=== PATIENT | male | born 1955 | race Caucasian/White ===

== ENCOUNTER 2022-05-01 12:53 | Oncology outpatient (recurring) (ONCR) | payer OTHER, SELFPAY ==
[2022-05-01 14:39] LABS: Basophils % 0.4 %; Eosinophils # 0.1 10^3/uL (0.0-0.8); Eosinophils % 1.1 %; Hematocrit 45.6 % (42.0-52.0); Hemoglobin 14.6 g/dL (11.7-16.6); Lymphocytes # 1.9 10^3/uL (0.8-4.8); Lymphocytes % 26.1 %; Mean Corpuscular Volume 93.8 fl (80-94); Mean Platelet Volume 10.8 fL (7.4-10.4); Monocytes # 0.5 10^3/uL (0.2-0.9); Monocytes % 7.3 %; Nucleated Red Blood Cells % 0 %; Platelet Count 156 10^3/cmm (130-400); Red Blood Count 4.86 10^6/uL (4.1-5.3); Red Cell Distribution Width 13.6 % (12.1-15.1); White Blood Count 7.2 10^3/uL (4.0-10.0)
[2022-05-01 15:02] LABS: Alanine Aminotransferase 13 U/L (0-41); Albumin Level 4.6 g/dL (3.5-5.2); Alkaline Phosphatase 78 U/L (40-130); Anion Gap 12.9 (5-19); Aspartate Amino Transferase 17 U/L (0-40); Blood Urea Nitrogen 13 mg/dL (8-23); Calcium 9.8 mg/dL (8.5-10.5); Carbon Dioxide 29 mmol/L (22-29); Chloride 105 mmol/L (98-107); Ferritin 31 ng/mL (30-400); Globulin 2.5 g/dL (1.3-4.6); Glomerular Filtration Rate 135.6 mL/min (90-130); Glucose 102 mg/dL (65-115); Osmolality Calculated 294 mOsm/kg (285-295); Potassium 4.9 mmol/L (3.5-5.1); Sodium 142 mmol/L (136-145); Total Bilirubin 0.4 mg/dL (0.15-1.2); Total Protein 7.1 g/dL (6.6-8.7)
== END 2022-05-25 23:59 | disposition home or self-care (01) ==
PROVIDERS: Visit Provider Internal Medicine Hematology & Oncology
DX: C15.5 Malignant neoplasm of lower third of esophagus (principal); C77.8 Secondary and unspecified malignant neoplasm of lymph nodes of multiple regions; E83.110 Hereditary hemochromatosis; Z90.09 Acquired absence of other part of head and neck; Z92.21 Personal history of antineoplastic chemotherapy; Z92.3 Personal history of irradiation; F17.210 Nicotine dependence, cigarettes, uncomplicated
CPT/HCPCS: 36415; 80053; 82728; 85025; 99204

== ENCOUNTER 2022-05-22 13:20 | Outpatient (CLI) | payer OTHER, SELFPAY ==
[2022-05-22] MEDS: iohexol 350 mg/mL 500 mL Btl (per mL) IV (13:52)
--- NOTE | 2022-05-22 14:30 | CT_ITS ---
WS: [id number] CT CHEST WITH INTRAVENOUS CONTRAST HISTORY: History of esophageal cancer. TECHNIQUE: Contiguous 5 mm axial imaging performed on the thorax. Coronal and sagittal reformats are submitted. All CT scans at [facility] use at least one of these dose optimization techniques: automated exposure control; mA and/or kV adjustment per patient size (includes targeted exams where dose is matched to clinical indication); or iterative reconstruction. CONTRAST: Omnipaque 350; 100 mL IV. DLP: 266.21 mGy.cm COMPARISON: None available. Lungs and central airway: 5.6 mm spiculated lesion LEFT upper lobe may be an area of scarring. Early metastatic site not excluded. Otherwise lungs are clear. Pleura: Normal. No pleural effusion. Heart and pericardium: Normal size heart with no pericardial effusion. Mediastinum and rahul: No mediastinum or hilar adenopathy. Vessels: Mild atherosclerosis aorta. No aneurysm. Normal size pulmonary artery. Coronary artery calci fications. Chest wall and lower neck: No soft tissue masses. Upper abdomen: Patient is status post esophageal pull-through. The postsurgical changes appear approp riate. No mass or obstruction is identified. Gallbladder is contracted. Visualized liver is negative. Pancreas is atrophic. Mild fullness of the pancreatic duct. Osseous structures: Increase in thoracic kyphosis. Moderate degenerative disc disease with vacuum dis c phenomenon at several levels. CT/CT chest w con* [id number] IMPRESSION: 1. Status post esophageal pull-through. The surgical changes appear appropriat e. 2. 5.6 mm minimally spiculated nodule LEFT upper lobe. May be a scar but early metastatic site is not excluded. Correlation with prior imaging would be most helpful. There are no prior studies available at [facility]. Otherwise [address] follow-up. 3. Atrophied pancreas with mildly prominent pancreatic duct. This may be a chr onic finding. Comparison with prior outside examinations would be most helpful. Otherwise, follow-up CT evaluation in 3 months the pancreas is recommended.
== END 2022-05-22 13:21 | disposition home or self-care (01) ==
PROVIDERS: Visit Provider Internal Medicine Hematology & Oncology
DX: C15.9 Malignant neoplasm of esophagus, unspecified (principal); R91.1 Solitary pulmonary nodule
CPT/HCPCS: 71260; Q9967

== ENCOUNTER 2022-06-01 09:33 | Oncology outpatient (recurring) (ONCR) | payer OTHER, SELFPAY ==
[2022-06-01 10:21] LABS: Basophils # 0.1 10^3/uL (0.0-0.1); Basophils % 0.7 %; Eosinophils # 0.1 10^3/uL (0.0-0.8); Eosinophils % 1.8 %; Hemoglobin 15.2 g/dL (11.7-16.6); Lymphocytes # 1.6 10^3/uL (0.8-4.8); Lymphocytes % 23.4 %; Mean Corpuscular HGB Conc 32.3 g/dL (30.0-36.0); Mean Corpuscular Hemoglobin 30.2 pg (28.0-34.0); Mean Corpuscular Volume 93.3 fl (80-94); Mean Platelet Volume 10.3 fL (7.4-10.4); Monocytes # 0.6 10^3/uL (0.2-0.9); Monocytes % 9.2 %; Neutrophils # 4.34 10^3/uL (1.8-7.7); Neutrophils % 64.8 %; Nucleated Red Blood Cells % 0 %; Platelet Count 176 10^3/cmm (130-400); Red Blood Count 5.04 10^6/uL (4.1-5.3); Red Cell Distribution Width 14.8 % (12.1-15.1); White Blood Count 6.7 10^3/uL (4.0-10.0)
[2022-06-01 10:35] LABS: Alanine Aminotransferase 11 U/L (0-41); Albumin Level 4.6 g/dL (3.5-5.2); Alkaline Phosphatase 76 U/L (40-130); Anion Gap 13.3 (5-19); Aspartate Amino Transferase 14 U/L (0-40); Blood Urea Nitrogen 13 mg/dL (8-23); Calcium 9.6 mg/dL (8.5-10.5); Carbon Dioxide 27 mmol/L (22-29); Chloride 107 mmol/L (98-107); Globulin 2.6 g/dL (1.3-4.6); Glomerular Filtration Rate 135.6 mL/min (90-130); Glucose 89 mg/dL (65-115); Osmolality Calculated 296 mOsm/kg (285-295); Potassium 4.3 mmol/L (3.5-5.1); Sodium 143 mmol/L (136-145); Total Bilirubin 0.4 mg/dL (0.15-1.2); Total Protein 7.2 g/dL (6.6-8.7)
== END 2022-06-24 23:59 | disposition home or self-care (01) ==
PROVIDERS: Visit Provider Internal Medicine Hematology & Oncology
DX: C15.5 Malignant neoplasm of lower third of esophagus (principal); Z90.09 Acquired absence of other part of head and neck; C77.8 Secondary and unspecified malignant neoplasm of lymph nodes of multiple regions; E83.110 Hereditary hemochromatosis; F17.210 Nicotine dependence, cigarettes, uncomplicated; Z92.21 Personal history of antineoplastic chemotherapy; Z92.3 Personal history of irradiation; R91.1 Solitary pulmonary nodule
CPT/HCPCS: 36415; 80053; 85025; 99214

== ENCOUNTER 2022-08-29 08:05 | Outpatient (CLI) | payer OTHER, SELFPAY ==
--- NOTE | 2022-08-29 08:20 | USR_ITS ---
PROCEDURE INFORMATION: Exam: US Duplex Bilateral Lower Extremity Arteries Exam date and time: 08/29/2022 8:32 AM Age: 66 years old Clinical indication: Condition or disease; Other: Arterial artery disease; Prior surgery; Surgery date: 6+ months; Surgery type: Patient states he has a stent in his right lower extrimity; Additional info: Arterial artery dz, PT having CT too TECHNIQUE: Imaging protocol: Real-time ultrasound scan of the arteries of the bilateral lower extremities with 2-D cruz scale, color Doppler flow and spectral waveform analysis. Images documented and saved. Total images: 3 COMPARISON: No relevant prior studies available. FINDINGS: Right external iliac artery: Biphasic waveform demonstrated right external iliac mid and distally. Right common femoral artery: No occlusion or significant stenosis. Normal waveform. Right superficial femoral artery: No flow within right SFA proximal to distal. No flow within the right proximal to distal SFA. Right popliteal artery: Reconstitution of flow with monophasic waveform noted within the right popliteal artery. Right calf/foot arteries: Right ankle brachial index of 0.71. This is claudication zone. Monophasic waveforms below the knee but only posterior tibial artery and dorsalis pedis artery demonstrated. Left external iliac artery: Biphasic waveform in the left external iliac mid and distal. Biphasic waveform in the left external iliac mid and distal. Left common femoral artery: No occlusion or significant stenosis. Normal waveform. Left superficial femoral artery: No flow in left SFA mid to distal. No flow seen in left SFA mid to distal. Left popliteal artery: Reconstitution of flow in left popliteal artery with monophasic waveform. Left calf/foot arteries: Left ankle brachial index of 0.71. This is claudication zone.Monophasic waveforms below the knee but only posterior tibial artery and dorsalis pedis artery demonstrated. Other findings: Moderate atherosclerotic burden. Biphasic waveforms are noted in the common femoral. Flow demonstrated in the right deep femoral artery. Flow demonstrated in left deep femoral artery. US/[place] [id number] IMPRESSION: 1. No flow within the right proximal to distal SFA. 2. Reconstitution of flow with monophasic waveform noted within the right popliteal artery and below the knee. 3. No flow seen in left SFA mid to distal. 4. Reconstitution of flow in left popliteal artery with monophasic waveform within the left popliteal artery and below the knee. 5. Bilateral ankle brachial index of 0.71. This is claudication zone.
[2022-08-29 09:24] LABS: Basophils # 0.1 10^3/uL (0.0-0.1); Basophils % 1.1 %; Eosinophils # 0.1 10^3/uL (0.0-0.8); Eosinophils % 2.2 %; Hematocrit 45.5 % (42.0-52.0); Hemoglobin 14.9 g/dL (11.7-16.6); Lymphocytes # 1.5 10^3/uL (0.8-4.8); Lymphocytes % 23.4 %; Mean Corpuscular HGB Conc 32.7 g/dL (30.0-36.0); Mean Corpuscular Volume 94.6 fl (80-94); Mean Platelet Volume 10.7 fL (7.4-10.4); Monocytes # 0.6 10^3/uL (0.2-0.9); Monocytes % 9.1 %; Neutrophils # 4.14 10^3/uL (1.8-7.7); Nucleated Red Blood Cells % 0 %; Platelet Count 171 10^3/cmm (130-400); Red Blood Count 4.81 10^6/uL (4.1-5.3); Red Cell Distribution Width 14.9 % (12.1-15.1); White Blood Count 6.5 10^3/uL (4.0-10.0)
--- NOTE | 2022-08-29 09:30 | CT_ITS ---
WS: [id number] CT CHEST AND ABDOMEN TECHNIQUE: Contrast-enhanced CT of the chest and abdomen with coronal and sagittal reformatted images . CLINICAL INFORMATION: Follow up COMPARISON: CT chest May 22, 2022 DLP: 493.[address] scans at [facility] use at least one of these dose optimization techniques: automated e xposure control; mA and/or kV adjustment per patient size (includes targeted exams where dose is matc hed to clinical indication); or iterative reconstruction. CT CHEST ABDOMEN: Previously described small area of spiculation in the LEFT upper lobe is unchanged. This measures sarah roximately 5 to 6 mm. New 8 mm nodule LEFT lower lobe. Recommend 3 month follow-up. No other suspicious pulmonary parenchymal opacities. No acute pulmonary infiltrates. Slight bibasilar atelectasis. Mild chronic emphysematous changes. Prior postoperative changes of esophagectomy with g astric pull-through. Normal caliber thoracic aorta. Mild aortic calcification. No mediastinal or rahul r lymphadenopathy. Coronary calcification. Normal thyroid gland. No axillary lymphadenopathy. Hepatomegaly with diffuse fatty infiltration liver. Adrenal glands are normal. Atrophic pancreas with minimal prominence of the pancreatic duct is unchanged. No visualized pancreatic lesions. Adrenal gl ands are normal. Normal renal parenchymal enhancement. A few tiny renal cysts. Normal spleen. Normal caliber upper abdominal aorta. Celiac and SMA are patent. Moderate thoracic kyphosis. Endplate Schmor l's nodes in the mid and lower thoracic spine. CT/CT chest abdomen w con* IMPRESSION: 1. Prior postoperative changes of esophagectomy and gastric pull-through. 2. Stable previously described LEFT upper lobe spiculation measuring 5 to 6 mm . 3. New 8 mm nodule LEFT lower lobe. Metastatic disease not excluded. Recommend 3 month follow-up. 4. No other new pulmonary parenchymal abnormalities. 5. Stable previously described atrophic pancreas. No visualized pancreatic mas s. 6. No mediastinal or hilar lymphadenopathy. 7. No other suspicious findings.
[2022-08-29 09:42] LABS: Alanine Aminotransferase 13 U/L (0-41); Albumin Level 4.4 g/dL (3.5-5.2); Alkaline Phosphatase 70 U/L (40-130); Aspartate Amino Transferase 17 U/L (0-40); Blood Urea Nitrogen 13 mg/dL (8-23); Calcium 9.1 mg/dL (8.5-10.5); Carbon Dioxide 27 mmol/L (22-29); Chloride 104 mmol/L (98-107); Ferritin 32 ng/mL (30-400); Globulin 2.5 g/dL (1.3-4.6); Glomerular Filtration Rate 113.5 mL/min (90-130); Glucose 90 mg/dL (65-115); Osmolality Calculated 290 mOsm/kg (285-295); Sodium 140 mmol/L (136-145); Total Bilirubin 0.6 mg/dL (0.15-1.2); Total Protein 6.9 g/dL (6.6-8.7)
[2022-08-29] MEDS: iohexol 350 mg/mL 500 mL Btl (per mL) IV (09:57)
[2022-08-29 10:18] LABS: Anion Gap 12.8 (5-19); Potassium 3.8 mmol/L (3.5-5.1)
== END 2022-08-29 08:06 | disposition home or self-care (01) ==
LOC: RAD 08:08
PROVIDERS: PCP Nurse Practitioner; Visit Provider Internal Medicine Hematology & Oncology
DX: I70.213 Atherosclerosis of native arteries of extremities with intermittent claudication, bilateral legs (principal); C15.9 Malignant neoplasm of esophagus, unspecified; E83.119 Hemochromatosis, unspecified; Z90.49 Acquired absence of other specified parts of digestive tract; R91.1 Solitary pulmonary nodule; K86.89 Other specified diseases of pancreas; Z95.828 Presence of other vascular implants and grafts
CPT/HCPCS: 71260; 74160; 80053; 82728; 85025; 93925; Q9967

== ENCOUNTER 2022-09-03 12:46 | Oncology outpatient (recurring) (ONCR) | payer OTHER, SELFPAY ==
[2022-09-03 12:51] VITALS: BP 128/78; PULSE 76; RESP 18; TEMP 36.9; O2SAT 97
[2022-09-03 12:54] LABS: Basophils % 0.6 %; Eosinophils # 0.1 10^3/uL (0.0-0.8); Eosinophils % 1.2 %; Hematocrit 45.3 % (42.0-52.0); Hemoglobin 14.8 g/dL (11.7-16.6); Lymphocytes # 1.5 10^3/uL (0.8-4.8); Mean Corpuscular HGB Conc 32.7 g/dL (30.0-36.0); Mean Corpuscular Hemoglobin 30.1 pg (28.0-34.0); Mean Corpuscular Volume 92.1 fl (80-94); Mean Platelet Volume 10.1 fL (7.4-10.4); Monocytes # 0.6 10^3/uL (0.2-0.9); Monocytes % 8.5 %; Neutrophils # 4.62 10^3/uL (1.8-7.7); Neutrophils % 67.4 %; Nucleated Red Blood Cells % 0 %; Platelet Count 164 10^3/cmm (130-400); Red Blood Count 4.92 10^6/uL (4.1-5.3); Red Cell Distribution Width 14.9 % (12.1-15.1); White Blood Count 6.9 10^3/uL (4.0-10.0)
[2022-09-03 13:11] LABS: Alanine Aminotransferase 16 U/L (0-41); Albumin Level 4.6 g/dL (3.5-5.2); Alkaline Phosphatase 69 U/L (40-130); Anion Gap 12.6 (5-19); Aspartate Amino Transferase 18 U/L (0-40); Blood Urea Nitrogen 11 mg/dL (8-23); Carbon Dioxide 26 mmol/L (22-29); Chloride 100 mmol/L (98-107); Ferritin 34 ng/mL (30-400); Globulin 2.5 g/dL (1.3-4.6); Glomerular Filtration Rate 135.6 mL/min (90-130); Glucose 99 mg/dL (65-115); Osmolality Calculated 279 mOsm/kg (285-295); Potassium 3.6 mmol/L (3.5-5.1); Sodium 135 mmol/L (136-145); Total Bilirubin 0.6 mg/dL (0.15-1.2); Total Protein 7.1 g/dL (6.6-8.7)
== END 2022-09-24 23:59 | disposition home or self-care (01) ==
PROVIDERS: PCP Nurse Practitioner; Visit Provider Internal Medicine Hematology & Oncology
DX: C15.5 Malignant neoplasm of lower third of esophagus (principal); Z90.09 Acquired absence of other part of head and neck; C77.8 Secondary and unspecified malignant neoplasm of lymph nodes of multiple regions; R91.1 Solitary pulmonary nodule; E83.110 Hereditary hemochromatosis; F17.210 Nicotine dependence, cigarettes, uncomplicated; Z92.21 Personal history of antineoplastic chemotherapy; Z92.3 Personal history of irradiation
CPT/HCPCS: 36415; 80053; 82728; 85025; 99214

== ENCOUNTER 2022-10-31 09:46 | Outpatient (CLI) | payer OTHER, SELFPAY ==
--- NOTE | 2022-10-31 10:03 | USCV_ITS ---
John Aggarwal Age: 66 Gender: M : 1955 Exam Date: 10/31/2022 10:20 Ordering Phys: Celena Che MD Technologist: Curt Robledo [place] [facility] [place] pad Risk Factors: Previous Vascular Surgery: hx of rt leg stent RIGHT LEFT BP: 120.0 / 75.00 BP: 120.0/ 75.00 0 0 Waveform Velocity (cm/s) Velocity (cm/s) Waveform Biphasic 65.6 Iliac Prox 87.4 Biphasic Monophasic 87.3 Iliac Mid 78.6 Biphasic Biphasic 78.3 Iliac Distal 69.7 Biphasic Biphasic 87.3 FARM INSTRUCTOR 92.3 Biphasic SFA Prox 45.3 Biphasic Biphasic 23.5 POP 22.1 Monophasic Monophasic 18.0 EXECUTIVE STAFF ASSISTANT 20.1 Monophasic Monophasic 11.6 DPA 15.7 Monophasic 0.7 HUDSON 0.7 FINDINGS Resting HUDSON of 0.7 on the right and 0.7 on the left No Doppler flow signals are noted in the superficial femoral artery on the right side. Monophasic low amplitude waveforms in the popliteal and infrapopliteal vessels on the right side. No Doppler flow signals in the mid and distal superficial femoral artery on the left side. Monophasic low amplitude waveforms in the infrapopliteal vessels on the left side CONCLUSIONS 1. 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 The mid and distal superficial femoral artery on the left-side also was occluded 2. Sluggish flow in the popliteal and infrapopliteal vessels bilaterally 3. Abnormal resting HUDSON of 0.7 bilaterally Compared to the study from 08/29/2022, there may not be a significant change Dr Didi Barrios MD [facility] (Electronically Signed) Final Date: 31 October 2022 15:53 S
== END 2022-10-31 09:47 | disposition home or self-care (01) ==
PROVIDERS: PCP Nurse Practitioner; Visit Provider Family Medicine
DX: I73.9 Peripheral vascular disease, unspecified (principal); I77.9 Disorder of arteries and arterioles, unspecified
CPT/HCPCS: 93925

== ENCOUNTER 2022-11-26 08:40 | Outpatient (CLI) | payer OTHER, SELFPAY ==
--- NOTE | 2022-11-26 09:00 | CT_ITS ---
WS: [id number] CT chest w con* [id number] HISTORY: follow up, history of esophageal cancer TECHNIQUE: Axial imaging performed through the thorax. Coronal and sagittal reformats are submitted. [facility] use at least one of these dose optimization techniques: automated exposure control; mA and/or kV adjustment per patient size (includes targeted exams where dose is mat ched to clinical indication); or iterative reconstruction. CONTRAST: Omnipaque 350; 100 mL IV. DLP: 345.23 mGy.cm COMPARISON: 08/29/2022 and 05/22/2022 Lungs and central airway: Chronic emphysema. 5 mm slightly spiculated nodule in the LEFT upper lobe i s unchanged. Recently described nodule in the LEFT lower lobe has significantly increased in size sin ce 08/29/2022. 8 mm nodule is increased in size and now measures 12 mm at its maximum. This nodule is s lightly ovoid in shape. No new or additional nodules. Pleura: Normal. No pleural effusion. Heart and pericardium: Normal size heart with no pericardial effusion. Mediastinum and rahul: There are a few small lymph nodes in the LEFT paratracheal and aortopulmonary w indow. These are very similar to the prior examinations. No hilar adenopathy. Patient is status post esophagectomy with gastric pull-through. No recurrent mass at the surgical anastomosis. Vessels: Mild atherosclerosis aorta. No aneurysm. Normal pulmonary artery. Chest wall and lower neck: Subcentimeter RIGHT thyroid nodule. Upper abdomen: Variable enhancement in the spleen is likely related to the early enhancement. Negativ e adrenal glands. There is variable enhancement also within the liver. There are a few scattered area s of increased peripheral enhancement. These may be small hemangiomas. Osseous structures: No destructive process. IMPRESSION: 1. Status post esophagectomy with gastric pull-through, stable. 2. Enlarging LEFT lower lobe noncalcified pulmonary nodule. Nodule has increased from 8 to 12 mm at i ts maximum. Metastatic site is not excluded. Recommend follow-up PET/CT imaging. 3. Stable spiculated 5 mm nodule at the LEFT apex. 4. Variable enhancement in the liver and spleen are probably related to the arterial imaging. These c an also be reevaluated on PET/CT imaging.
[2022-11-26 09:30] LABS: Blood Urea Nitrogen 10 mg/dL (8-23); Glomerular Filtration Rate 97.3 mL/min (90-130)
[2022-11-26] MEDS: iohexol 350 mg/mL 500 mL Btl (per mL) IV (09:36)
== END 2022-11-26 08:41 | disposition home or self-care (01) ==
PROVIDERS: Internal Medicine Medical Oncology; PCP Nurse Practitioner; Visit Provider Internal Medicine Hematology & Oncology
DX: C15.9 Malignant neoplasm of esophagus, unspecified (principal); R91.1 Solitary pulmonary nodule
CPT/HCPCS: 71260; 82565; 84520; Q9967

== ENCOUNTER 2022-12-04 07:52 | Oncology outpatient (recurring) (ONCR) | payer OTHER, SELFPAY ==
[2022-12-04 08:01] VITALS: BP 153/74; PULSE 75; RESP 16; TEMP 36.8; O2SAT 99
[2022-12-04 08:21] LABS: Basophils # 0.1 10^3/uL (0.0-0.1); Eosinophils # 0.1 10^3/uL (0.0-0.8); Eosinophils % 1.9 %; Hematocrit 45.9 % (37-53); Lymphocytes # 1.6 10^3/uL (0.8-4.8); Lymphocytes % 23.2 %; Mean Corpuscular HGB Conc 33.1 g/dL (30-55); Mean Corpuscular Hemoglobin 31.1 pg (27-33); Mean Corpuscular Volume 94.1 fl (82-101); Mean Platelet Volume 10.7 fL (7.4-10.4); Monocytes # 0.7 10^3/uL (0.2-0.9); Monocytes % 10.1 %; Neutrophils % 63.5 %; Nucleated Red Blood Cells % 0 %; Platelet Count 179 10^3/cmm (157-399); Red Blood Count 4.88 10^6/uL (3.85-5.65); Red Cell Distribution Width 14.7 % (12.1-15.1); White Blood Count 6.93 10^3/uL (3.29-11.43)
[2022-12-04 08:37] LABS: Alanine Aminotransferase 18 U/L (0-41); Albumin Level 4.4 g/dL (3.5-5.2); Alkaline Phosphatase 78 U/L (40-130); Aspartate Amino Transferase 22 U/L (0-40); Blood Urea Nitrogen 12 mg/dL (8-23); Calcium 9.2 mg/dL (8.5-10.5); Carbon Dioxide 26 mmol/L (22-29); Chloride 105 mmol/L (98-107); Globulin 2.6 g/dL (1.3-4.6); Glucose 130 mg/dL (65-115); Osmolality Calculated 294 mOsm/kg (285-295); Sodium 141 mmol/L (136-145); Total Bilirubin 0.4 mg/dL (0.15-1.2)
[2022-12-04 10:19] LABS: Ferritin 43 ng/mL (30-400); Iron 114 ug/dL (59-158); Percent Saturation 47.6 % (20-50); Total Iron Binding Capacity 239 mcg/dl; Unsaturated Iron Binding 125 ug/dL (112-347)
== END 2022-12-25 23:59 | disposition home or self-care (01) ==
PROVIDERS: Internal Medicine Medical Oncology; PCP Nurse Practitioner; Visit Provider Internal Medicine Hematology & Oncology
DX: C15.5 Malignant neoplasm of lower third of esophagus (principal); R91.1 Solitary pulmonary nodule; E83.119 Hemochromatosis, unspecified; F17.210 Nicotine dependence, cigarettes, uncomplicated
CPT/HCPCS: 36415; 80053; 82728; 83540; 83550; 85025; 99214

== ENCOUNTER 2022-12-25 10:30 | Outpatient (CLI) | payer OTHER, SELFPAY ==
--- NOTE | 2022-12-25 10:30 | PETR_ITS ---
PROCEDURE INFORMATION: Exam: PET/CT Skull Base to Mid-thigh Exam date and time: 12/25/2022 11:30 AM Age: 67 years old Clinical indication: Condition or disease; Primary cancer: Esophageal; Follow-up oncological assessment; Condition/disease: Enlarging left lower lobe noncalcified pulmonary nodule. Nodule has increased from 8 to 12 mm at. Its maximum. Metastatic site is not excluded. Recommend follow-up pet/ct imaging. ; Additional info: Esophageal cancer follow up, needs a pet. Nodules getting larger. LABS AND CLINICAL REPORTS: Glucose: 91 mg/dl Treatment strategy for malignancy (PET staging): Restaging (PS) TECHNIQUE: Imaging protocol: Following at least four-hour fasting and following the injection of radiopharmaceutical, low dose CT images were obtained. Then, PET images were obtained. Attenuation corrected images were constructed using the CT scan. Fused images of PET and CT were reviewed. The standardized uptake values (SUV) reported below are maximum values within a region of interest, expressed in gm/ml. Exam includes orbital meatal line to mid-thigh. Radiopharmaceutical: 11.91 mCi F-18 FDG (Fluorodeoxyglucose), IV. Time of imaging post radiopharmaceutical administration: 1 hour Injection site: Information is currently not provided COMPARISON: CT chest w con 11/26/2022, CT chest abdomen 08/29/2022 FINDINGS: Brain: Visualized brain has normal physiologic uptake. Paranasal sinuses: No abnormal uptake. Small retention cyst anteriorly in the left maxillary sinus. Pharynx: No abnormal uptake. Larynx: No abnormal uptake. Lungs, pleura and trachea: 1.4 cm left lower lobe nodule measures 4.7 SUV suggestive of malignancy. No pleural effusion. Heart: Normal physiologic uptake. There is no cardiomegaly. Coronary artery calcification is present. There is no pericardial effusion. Mediastinal space: No abnormal uptake. Status post esophagectomy with gastric pull-up surgery. Stable sequela of exposure to granulomatous disease with small calcified subcarinal and left hilar lymph nodes. Liver: No abnormal uptake. Tiny calcified granulomas. Gallbladder and bile ducts: No abnormal uptake. No calcified gallstones. Pancreas: No abnormal uptake. Spleen: No abnormal uptake. No splenomegaly. Adrenal glands: No abnormal uptake. No nodules. Kidneys and ureters: Normal physiologic uptake. No hydronephrosis. Stomach and bowel: No abnormal uptake. Normal appendix is visualized. Intraperitoneal and retroperitoneal spaces: No abnormal uptake. No ascites. Urinary bladder: Normal physiologic uptake. Reproductive: No abnormal uptake. The prostate is enlarged. Vasculature: No abnormal uptake. No aortic aneurysm. Lymph nodes: No abnormal uptake. No lymphadenopathy in the head, neck, chest, abdomen, pelvis, and extremities. Bones/joints: No abnormal uptake in the visualized axial and appendicular skeleton. Status post C4-C7 fusion with anterior internal fixation. Soft tissues: No abnormal uptake in the visualized head, neck, chest, abdomen, pelvis, and extremities. [id number] IMPRESSION: 1.4 cm left lower lobe lung nodule with uptake of 4.7 SUV suggestive of malignancy. No additional FDG avid findings.
== END 2022-12-25 10:31 | disposition home or self-care (01) ==
LOC: RAD 12-26 08:30
PROVIDERS: PCP Nurse Practitioner; Visit Provider Internal Medicine Medical Oncology
DX: C15.9 Malignant neoplasm of esophagus, unspecified (principal); R91.1 Solitary pulmonary nodule
CPT/HCPCS: 78815; 99203; A9552

== ENCOUNTER → 2022-12-25 14:13 | Outpatient (BNVA) | payer OTHER, SELFPAY | PROVIDERS: PCP Nurse Practitioner; Referring Provider Family Medicine; Visit Provider Thoracic Surgery (Cardiothoracic Vascular Surgery) | DX: I73.9 Peripheral vascular disease, unspecified (principal); Z98.890 Other specified postprocedural states | CPT/HCPCS: 99203 ==

== ENCOUNTER 2022-12-31 12:43 | Oncology outpatient (recurring) (ONCR) | payer OTHER, SELFPAY | END 2023-01-24 23:59 | disposition home or self-care (01) | LOC: ONCMED 12:44 | PROVIDERS: PCP Nurse Practitioner; Visit Provider Internal Medicine Hematology & Oncology | DX: C15.5 Malignant neoplasm of lower third of esophagus (principal); R91.1 Solitary pulmonary nodule; E83.119 Hemochromatosis, unspecified; F17.210 Nicotine dependence, cigarettes, uncomplicated; Z79.899 Other long term (current) drug therapy | CPT/HCPCS: 99215 ==

== ENCOUNTER → 2023-01-11 09:19 | Outpatient (BNVA) | payer OTHER, SELFPAY | PROVIDERS: PCP Nurse Practitioner; Visit Provider Internal Medicine Pulmonary Disease | DX: R91.1 Solitary pulmonary nodule (principal); J43.9 Emphysema, unspecified; Z85.01 Personal history of malignant neoplasm of esophagus; Z90.49 Acquired absence of other specified parts of digestive tract | CPT/HCPCS: 99204 ==

== ENCOUNTER 2023-01-28 05:46 | Day surgery (SDC) | payer OTHER, SELFPAY ==
[2023-01-28] VITALS (11 sets, daily range): BP systolic 118–172; BP diastolic 69–83; PULSE 59–89; RESP 15–20; TEMP 36.1–36.2; O2SAT 93–98; BMI 22.1
--- NOTE | 2023-01-28 06:26 | CT_ITS ---
WS: [id number] CT chest ION (PULM ONLY) [id number] HISTORY: for biopsy of left lower lobe TECHNIQUE: Axial imaging performed through the thorax. All CT scans at [facility] use at leas t one of these dose optimization techniques: automated exposure control; mA and/or kV adjustment per patient size (includes targeted exams where dose is matched to clinical indication); or iterative rec onstruction. CONTRAST: None DLP: 414.42 COMPARISON: 11/26/2022 CT performed prior to and procedure. Reidentified is a slightly lobulated solid nodule in the LEFT lo wer lobe measuring 1.6 cm which continues to slowly increase in size. No additional nodule. No pneumo thorax. Prior gastric pull-through. IMPRESSION: Lobulated nodule LEFT lower lobe continues to increase in size. Nodule is PET/CT positive.
[2023-01-28] MEDS: sodium chloride 0.9% 1,000 ML 30 ML IV (06:53)
--- NOTE | 2023-01-28 07:00 | ANES.PREANE2 ---
Pre-Anesthetic Assessment Height/Weight: Height 1.85 m Weight 76.204 kg Temp Pulse Resp BP Pulse Ox O2 Del Method 97.0 F L 65 16 172/83 98 Room Air 01/28/23 06:26 01/28/23 06:26 01/28/23 06:26 01/28/23 06:26 01/28/23 06:26 01/28/23 06:26 Preop Diagnosis: Lest lung nodule Operation Date: 01/28/23 07:00 Proposed Procedures p Ion Robotic Assisted Bronchoscopy ION(Not Applicable) - Deejay Rangel MD s ION,EBUS, 49341, 15590, 48999, 74397, 78620, 72006, 64636, 68709, 79401, 52769, 97834, 24549, 07502, 57239,R91.1(Not Applicable) - Deejay Rangel MD Was Beta Jennifer taken within 24 hours: N/A Was Clonidine taken within 24 hours: N/A Last intake: Intake Last Liquid Date 01/27/23 Last Liquid Time 20:00 Last Solid Date 01/27/23 Last Solid Time 16:00 Social Past hx cigar smoking Exam alert, oriented x 3, clear to auscultation bilaterally and regular rate & rhythm Airway Submandibular: within normal limits Cervical ROM: within normal limits Mallampati: Class II Dentition: chipped Comments: Comments: Several missing teeth History/ROS No significant history except as noted and No significant complaints Pulmonary Chronic Obstructive Pulmonary Disease CV/HEM None reported None reported Hepatic None reported GI Gastroesophageal Reflux Disease Hx esophagectomy in 2019 Metabolic None reported Musc/skel None reported Neuropsych None reported Anesthetic Plan ASA status: 3 Anesthesia: Anesthesia Evaluation and General Risk of > 500 ml blood loss (7ml/kg in children): No Medications/Allergies Home Medications Medication Instructions Recorded Confirmed Last Taken Type amlodipine 2.5 mg tablet 2.5 mg PO DAILY 05/01/22 01/25/23 01/28/23 06:00 History atorvastatin 20 mg tablet 10 mg PO DAILY 05/01/22 01/28/23 01/27/23 History meloxicam 15 mg tablet 15 mg PO DAILY 05/01/22 01/28/23 01/27/23 History omeprazole 40 mg capsule,delayed 40 mg PO BID 05/01/22 01/28/23 01/27/23 History release loratadine 10 mg tablet (Allergy 10 mg PO DAILY 01/11/23 01/28/23 01/27/23 History Relief (loratadine)) Allergies Allergy/AdvReac Type Severity Reaction Status Date / Time coconut Allergy ADR-Abdominal Uncoded 01/25/23 09:41 Pain Current Medications Generic Name Dose Route Start Last Admin Trade Name Freq PRN Reason Stop Dose Admin Sodium Chloride 1,000 mls @ 30 mls/hr 01/28/23 06:30 01/28/23 06:53 Sodium Chloride 0.9% IV 01/29/23 06:29 30 mls/hr .Q24H KATELYN Administration PFSH Anesthesia Medical History (Updated 01/12/23 @ 10:14 by Deejay Rangel MD) Hemochromatosis Esophageal cancer Hemochromatosis Esophageal cancer Family History Father Stroke Mother Stroke Other Hypertension Denies family history of Diabetes CAD (coronary artery disease) Clotting disorder Dementia Hyperlipidemia Psychiatric illness Chronic kidney disease (CKD) Suicide Anesthesia complication Bleeding disorder Lung disease Cancer Social History Smoking and tobacco/nicotine status: current every day tobacco/nicotine user cigarettes Packs smoked per day: 1 Years cigarettes smoked: 50 [ Other cigarette details: Quit smoking cigarettes in 2011.] and cigars Cigars smoked per week: 7 Years smoked cigars: 60 Cigar details: about 0.5 cigar per day, smoked x 50+ years Alcohol intake: current Alcohol intake frequency: 0-2 Drinks per Day Alcohol type: beer Substance/Drug Use: never Data Anesthesia Cardiac Studies: No Data to Display
--- NOTE | 2023-01-28 07:10 | W.PM.OPSUD ---
Surgery/Procedure H&P Update DATE OF PROCEDURE: January 28, 2023 DATE H&P PERFORMED: 01/11/23 H&P UPDATE INFORMATION: I have reviewed H&P completed within last 30 days, I have examined patient prior to procedure and No changes to prior documentation PREOP DIAGNOSIS: Lest lung nodule PRIMARY INDICATION FOR PROCEDURE: left lower lobe nodule to rule out malignancy lung primary vs metastatic esophageal PLANNED PROCEDURE: Operation Date: 01/28/23 07:00 Proposed Procedures p Ion Robotic Assisted Bronchoscopy ION(Not Applicable) - Deejay Rangel MD s ION,EBUS, 45486, 23978, 97741, 18649, 50761, 84671, 92166, 86593, 57340, 25067, 83049, 72259, 52877, 93524,R91.1(Not Applicable) - Deejay Rangel MD Related Problem List Diagnoses (1) Left lower lobe pulmonary nodule:
--- NOTE | 2023-01-28 07:21 | SC_ITS ---
WS: [id number] INTRAOPERATIVE TECHNIQUE: 4 Spot fluoroscopic images for intraoperative purposes. FLUOROSCOPY TIME: 63.3 seconds CLINICAL INFORMATION: ion COMPARISON: None. FINDINGS: Fluoroscopy used for intraoperative bronchoscopy purposes IMPRESSION: Images obtained for intraoperative purposes.
[2023-01-28] MEDS: lidocaine 1% INJ 10 mL (per mL) XX (07:59)
[2023-01-28 08:44] LABS: Apprearance, Bronch Wash Bloody (CLEAR); Color, Bronc Wash Red; Cyto Order Verification Order Verified
--- NOTE | 2023-01-28 09:18 | P.OP_ITS ---
Operative Report Date of procedure: January 28, 2023 Pre-op diagnosis: Suspected malignancy Post-op diagnosis: Same Procedure done: 79028 Dx Bronchoscope w/Washings or airway inspection 48244 Dx Bronchoscope w/BAL 71513 Bronch with computer image guided Navigational Bronchoscopy 98311 Bronchoscopy w/Transbronchial lung biopsy(s), single lobe 46126 Bronchoscopy w/Transbronchial needle aspiration biopsy(s), tracheal, main stem, and/or lobar bronchus 43612 Bronchoscopy w/ therapeutic aspiration of the tracheobronchial tree (clearance of airway secretions, removal of mucus plugs) 02261 EBUS Sampling 1/2 nodes 76369 EBUS Diag or Interven Peripheral lesion (radial EBUS) Surgeon: Deejay Rangel MD Brief History: Mr. John Aggarwal is a 67-year-old male with past medical history multiple skin cancers, and esophageal cancer s/p esophagectomy and chemoradiation in 2019 follows up with oncology His surveillance 11/26/2022: CT chest with contrast shows esophagectomy with gastric pull-up.? Enlarging left lower lobe noncalcified pulmonary nodule increasing in size from 8 to 12 mm.? Stable spiculated 5 mm nodule at the left apex. 12/15/2022: PET CT scan shows 1.4 cm left lower lobe lung nodule with uptake of 4.7 suspicious for malignancy. Given patient's Hx of smoking 1 cigar per day X 60 years., quit in 2011.- Oncology referred to our service to biopsy left lower lobe nodule rule out primary pulmonary malignancy versus metastatic esophageal cancer. Patient also reports having multiple skin cancers. Patient is using cilostazol for PAD-currently held in anticipation for biopsies I have discussed with patient that given significant smoking history as well as history of esophageal cancer-the lesion in the lung is highly suspicious for malignancy and we need tissue diagnosis to confirm. For that I have given the option of going for robotic navigational guided biopsy of suspicious lesion as well as endobronchial ultrasound-guided surveillance of hilar/mediastinal lymph nodes. I have explained about the complications like pneumothorax given her significant background emphysema which may require chest tube placement. Bleeding is another possibility, majority of times the bleeding is controlled with instillation of cold saline or diluted epinephrine but extremely rarely to bleeding may not be well controlled, which may result in prolonged intubation and possibly bronchial mega placement to protect nonbleeding airway, convalescence in ICU. There is also a very small chance of missing the lesion due to technical factors which may result in repeating the procedure. Patient and agreed to proceed with robotic bronchoscopy to obtain biopsies Procedure: 12107 Dx Bronchoscope w/Washings or airway inspection 85741 Dx Bronchoscope w/BAL 16553 Bronch with computer image guided Navigational Bronchoscopy 87482 Bronchoscopy w/Transbronchial lung biopsy(s), single lobe 67907 Bronchoscopy w/Transbronchial needle aspiration biopsy(s), tracheal, main stem, and/or lobar bronchus 17426 Bronchoscopy w/ therapeutic aspiration of the tracheobronchial tree (clearance of airway secretions, removal of mucus plugs) 62685 EBUS Sampling 1/2 nodes 57875 EBUS Diag or Interven Peripheral lesion (radial EBUS) Indication: Description of the procedure: The procedure was explained to the patient and the consent was obtained. The patient was brought to the OR. Anesthesia: The patient underwent endotracheal intubation for general anesthesia. Local anesthesia: The distal trachea-Payal, right and left mainstem bronchi were anesthetized with 1% lidocaine, 3 mL. Following induction of general anesthesia, the flexible bronchoscope was advanced through the ET tube. The lower trachea mucosa appeared normal, no endotracheal lesion was seen. The payal was sharp. The payal, the right and left mainstem bronchi are anesthetized with 1% lidocaine. In a systematic manner bilateral bronchial tree was then examined. The bronchoscope was then introduced into the right mainstem bronchus. The right upper lobe, right middle lobe and right lower lobe bronchi were examined up to the third subsegmental level and no abnormalities were identified.Mucosa appeared normal with no endobronchial lesion, active bleeding or mucous plug.There were significant clear secretions which were suctioned right away.(33464). The bronchoscope was advanced into the left mainstem bronchus. The mucosa appeared normal with no endobronchial lesions. The left upper lobe, lingula and left lower lobe bronchi were examined up to the third subsegmental level and no abnormalities were identified. Mucosa appeared normal with no endobronchial lesion, active bleeding or mucous plug. There were significant clear secre tions which were suctioned right away.(52289). After initial inspection as well as airway clearance with flexible bronchoscope(16960), ION robotic assisted navigational bronchoscope (61382) was introduced-and left lower lobe lesion was accessed. After confirming the location with radial EBUS (33397), under the fluoroscopy guidance -we were able to obtain biopsies using fine-needle, forceps.There was some evidence of grade 2 bleeding-cold saline was instilled. BAL was also taken from left lower lobe anterior segment. After making sure there is no active bleeding navigational bronchoscope was retracted and introduced Endobronchial ultrasound EBUS (66766). With the help of EBUS, identified lymph nodes at station 4L, and station 7. Fine-needle aspiration biopsies were taken from lymph nodes at station 4L and station 7. (19800) After taking the biopsies EBUS retracted-diagnostic bronchoscope was introduced to check for any evidence of active bleeding. There was some evidence of bleeding-controlled with instillation of cold saline. After making sure there is no active bleeding bronchoscope was retracted and procedure terminated. Samples: A. Left lower lobe lesion 1. Total of 5 passes were made using needle aspiration(95359); we do not have onsite pathology and so all the material was placed in formalin for histopathology 2. Targeting the same area 5 passes were made using forceps (96599); we do not have onsite pathology and so all the material was placed in formalin for histopathology 3. Bronchoscope was wedged at the entrance of the anterior segment of left lower lobe, 20 mL of saline was instilled and returned 13 mL of bronchoalveolar lavage (93455). The fluid was mixed with blood and specks of tissue. Samples for cell count, cytology, cultures B. EBUS guided Fine-needle aspiration biopsies were taken from station 4L, and station 7. (31905) 1. Total of 3 passes were made using needle aspiration(07973) from station 4L; all the material was placed in formalin and sent for histopathology 2. Total of 3 passes were made using needle aspiration(89230) from station 7: all the material was placed in formalin and sent for histopathology Complications: None.The patient was extubated and brought to the PACU in stable condition. Postprocedure chest x-ray: There is no evidence of pneumothorax Disposition: Patient can be discharged home in stable condition. Pt, and his are aware that I am going to call them to update final biopsy results once available. Related Problem List Diagnoses (1) Left lower lobe pulmonary nodule:
--- NOTE | 2023-01-28 09:28 | XR_ITS ---
WS: [id number] CHEST XRAY TECHNIQUE: Portable chest. CLINICAL INFORMATION: POST ION COMPARISON: CT chest 01/28/2023 FINDINGS: Heart: Cardiomegaly. Aortic calcification. Lungs: Chronic emphysematous changes. No acute pulmonary infiltrates. No focal pneumonia or pleural f luid. No pneumothorax. Bones: Normal visualized bony structures. Postoperative changes lower cervical spine. IMPRESSION: 1. Normal for postoperative purposes. 2. No pneumothorax.
[2023-01-28 09:45] LABS: PATH Referral Yes; Total Cells Counted Bronch 77
--- NOTE | 2023-01-28 13:24 | ANE.PACU2 ---
Inpatient post-anesthesia follow up: Airway intact: Yes Vital signs: Temperature 97.0 F Pulse Rate 60 Respiratory Rate 16 Blood Pressure 130/77 Pulse Oximetry 96 Oxygen Delivery Me thod Room Air Oxygen Flow Rate 6 Fraction of Inspir ed Oxygen Hydration adequate: Yes Nausea and vomiting: No Pain level: 2 Mental status: Baseline
== END 2023-01-28 10:07 | disposition home or self-care (01) ==
PROVIDERS: PCP Nurse Practitioner; Visit Provider Internal Medicine Pulmonary Disease
PROC: 0BJ08ZZ Inspection of Tracheobronchial Tree, Via Natural or Artificial Opening Endoscopic (ICD-10-PCS; CPT 31622; principal; 2023-01-28 07:00)
PROC: BB4BZZZ Ultrasonography of Pleura (ICD-10-PCS; 2023-01-28 07:00)
DX: C34.32 Malignant neoplasm of lower lobe, left bronchus or lung (principal); Z85.828 Personal history of other malignant neoplasm of skin; Z85.01 Personal history of malignant neoplasm of esophagus; Z92.21 Personal history of antineoplastic chemotherapy; Z87.891 Personal history of nicotine dependence; I73.9 Peripheral vascular disease, unspecified; J44.9 Chronic obstructive pulmonary disease, unspecified
CPT/HCPCS: 31624; 31627; 31628; 31629; 31645; 31652; 31654; 71045; 71250; 76000; 80503; 87070; 87205; 88112; 88305; 88342; 88344; 89050; J1100; J2405; J2704; J2710; J3010; J3490; J7030

== ENCOUNTER 2023-02-07 11:51 | Outpatient (CLI) | payer OTHER, SELFPAY ==
[2023-02-07 12:13] VITALS: PULSE 71; RESP 18; O2SAT 98
[2023-02-07] MEDS: albuterol 2.5 mg/3 mL Neb INHALATION (12:16)
[2023-02-07 12:17] VITALS: PULSE 74
== END 2023-02-07 11:52 | disposition home or self-care (01) ==
LOC: RT 11:51
PROVIDERS: PCP Nurse Practitioner; Visit Provider Internal Medicine Pulmonary Disease
DX: R06.02 Shortness of breath (principal); Z87.891 Personal history of nicotine dependence; R94.2 Abnormal results of pulmonary function studies
CPT/HCPCS: 94060; 94618; 94726; 94729; J7613

== ENCOUNTER 2023-02-13 10:01 | Oncology outpatient (recurring) (ONCR) | payer OTHER, SELFPAY ==
[2023-02-06 08:12] VITALS: BP 142/69; PULSE 65; RESP 16; TEMP 36.4; O2SAT 97
[2023-02-06 08:32] LABS: Basophils # 0.1 10^3/uL (0.0-0.1); Basophils % 0.9 %; Eosinophils # 0.2 10^3/uL (0.0-0.8); Eosinophils % 2.3 %; Hematocrit 42.7 % (37-53); Lymphocytes # 1.9 10^3/uL (0.8-4.8); Lymphocytes % 29.3 %; Mean Corpuscular HGB Conc 33.5 g/dL (30-55); Mean Corpuscular Hemoglobin 31.8 pg (27-33); Mean Corpuscular Volume 94.9 fl (82-101); Mean Platelet Volume 10.2 fL (7.4-10.4); Monocytes # 0.8 10^3/uL (0.2-0.9); Monocytes % 12.5 %; Neutrophils # 3.59 10^3/uL (1.8-7.7); Neutrophils % 54.5 %; Nucleated Red Blood Cells % 0 %; Platelet Count 174 10^3/cmm (157-399); Red Cell Distribution Width 14.4 % (12.1-15.1); White Blood Count 6.58 10^3/uL (3.29-11.43)
[2023-02-06 08:43] LABS: Alanine Aminotransferase 18 U/L (0-41); Albumin Level 4.1 g/dL (3.5-5.2); Alkaline Phosphatase 72 U/L (40-130); Aspartate Amino Transferase 18 U/L (0-40); Blood Urea Nitrogen 19 mg/dL (8-23); Calcium 8.9 mg/dL (8.5-10.5); Carbon Dioxide 27 mmol/L (22-29); Chloride 102 mmol/L (98-107); Globulin 2.5 g/dL (1.3-4.6); Glucose 111 mg/dL (65-115); Osmolality Calculated 287 mOsm/kg (285-295); Sodium 137 mmol/L (136-145); Total Bilirubin 0.5 mg/dL (0.15-1.2); Total Protein 6.6 g/dL (6.6-8.7)
[2023-02-06 11:50] LABS: Ferritin 40 ng/mL (30-400); Iron 175 ug/dL (59-158); Percent Saturation 72.9 % (20-50); Total Iron Binding Capacity 240 mcg/dl; Unsaturated Iron Binding 65 ug/dL (112-347)
--- NOTE | 2023-02-14 08:34 | N.ONRAD NP_ITS ---
Radiation Oncology New Patient Visit Patient: John Aggarwal MR#: [id number] : 1955 Age: 67 Sex: Male> Dictated by: Jose Meng Date of Service: 02/13/2023 Referring Physician(s) : Benson Clay M.D. 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 At surgery with Ga Bradford resection he had minimal residual primary disease and 2 of 20 LNs involved c/w St III (T3 N1 M0) Following surgery he had good functional outcome and was followed with CT imaging. CT 11/26/2022 increased left lung nodule from 8 to 12 mm. PET/CT 12/06/2022 showed that this nodule had uptake c/w malignancy with SUV 4.7. No other suspicious findings. Bronch and bx of LL Lobe nodule was positive for small cell lung carcinoma. Sampled LNs from 4L and 7 were negative. Staging MRI brain pending. He was smoking cigars with prior history of cigarette smoking. Quit smoking at dx. Weight appetite and swallowing are all good. Breathing ok. No TAN, N or V. works 3 days a week at [employer] office. He retired as a truck service technician. Current Medications: amlodipine 2.5 mg PO DAILY, atorvastatin 10 mg PO DAILY, loratadine (Allergy Relief (loratadine)) 10 mg PO DAILY, meloxicam 15 mg PO DAILY, omeprazole 40 mg PO BID Allergies: coconut Allergy, ADR-Abdominal Pain Medical History: Degenerative joint disease of spine, Degenerative arthritis, GERD (gastroesophageal reflux disease), Dyslipidemia, Hypertension, Small cell lung cancer, Peripheral arterial disease with history of revascularization, Esophageal cancer, Hemochromatosis Surgical History: Status post surgical removal of malignant neoplasm of skin, Removal of skin cancers on the nose and lip, Status post arterial stent- Right leg, Hx of cervical spine surgery x 3 or 4, S/P ORIF (open reduction internal fixation) fracture Left arm fracture, History of total right knee replacement, History of esophagogastroduodenoscopy (EGD) (09/2021), History of esophagectomy (09/18/18), Ga Bradford esophagectomy, History of bronchoscopy (01/28/23) Bronchoscopy/EBUS with transbronchial biopsy of the left lower lobe pulmonary nodule and with FNA biopsies of station 4 LN station 7 lymph nodes Family History: Father- Stroke, Mother- Stroke, Other Hypertension Denies family history of Diabetes, CAD (coronary artery disease), Clotting disorder, Dementia, Hyperlipidemia, Psychiatric illness, Chronic kidney disease (CKD), Suicide, Anesthesia complication, Bleeding disorder, Lung disease, Cancer Social History: x 3 years. 3 children 2 step children. 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 [employer] 1979 to 1983. Moved here from [place]. Smoking and tobacco/nicotine status: former use of tobacco/nicotine, Quit status (tobacco/nicotine): has quit using Year quit tobacco: 2022 Former quit date comment: quit 6 weeks prior/tobacco use 55 years, Alcohol intake: current Alcohol intake frequency: 0-2 Drinks per Day Alcohol type: beer , Substance/Drug Use: never Current Complaints / Review of Systems: . Vital Signs: Physical Exam: Robust in NAD. Surgical resection over nose. Poor dentition. No adenopathy. No pedal edema. Performance Status: 0 - 1 Pathology: see above. Imaging: See HPI Impression: St I(T1 N0 M0) small cell lung carcinoma of left lower lobe. 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 Recommend combined radiation and chemo. Obviously we will limit radiation to primary site given stage I presentation with sampled lymph nodes clear of involvement and prior treatment to inferior mediastinum. I favor 45 Gy in 15 fractions vs 50 Gy in 20 fractions with first cycle of chemo. Will need [address] to assess for respiratory motion. We will schedule simulation close to the time of port placement which has yet to be scheduled. Completion of staging with MRI of brain also needs to be scheduled. Discussed with patient and spouse and Dr. Clay. Signed by: 02/14/2023 8:33:45 AM <<Signature on File>> Time spent with patient: CPT Code: CPT Code:
== END 2023-02-24 23:59 | disposition home or self-care (01) ==
PROVIDERS: PCP Nurse Practitioner; Visit Provider Internal Medicine Medical Oncology
DX: C34.32 Malignant neoplasm of lower lobe, left bronchus or lung (principal); Z87.891 Personal history of nicotine dependence; Z85.01 Personal history of malignant neoplasm of esophagus; I73.9 Peripheral vascular disease, unspecified; I10 Essential (primary) hypertension; Z85.828 Personal history of other malignant neoplasm of skin
CPT/HCPCS: 36415; 80053; 82728; 83540; 83550; 85025; 99205; 99214; 99215

== ENCOUNTER → 2023-02-26 13:26 | Outpatient (BNVA) | payer OTHER, SELFPAY | PROVIDERS: PCP Nurse Practitioner; Referring Provider Thoracic Surgery (Cardiothoracic Vascular Surgery); Visit Provider Internal Medicine | DX: R07.9 Chest pain, unspecified (principal); I45.10 Unspecified right bundle-branch block; C34.32 Malignant neoplasm of lower lobe, left bronchus or lung; Z87.891 Personal history of nicotine dependence; I27.20 Pulmonary hypertension, unspecified; I45.2 Bifascicular block | CPT/HCPCS: 93005; 99204 ==

== ENCOUNTER 2023-02-28 13:22 | Outpatient (CLI) | payer OTHER, SELFPAY ==
--- NOTE | 2023-02-28 13:45 | MR_ITS ---
WS: [id number] MRI HEAD WITH CONTRAST TECHNIQUE: Sagittal T1, T2 axial, T2 axial FLAIR, axial susceptibility weighted imaging, axial diffus ion weighted images, and coronal T2 images were obtained. Pre and post-T1 axial and post T1 coronal i mages. ADC and FSPGR images. CLINICAL INFORMATION: lung cancer COMPARISON: None. FINDINGS: No evidence of restricted diffusion to suggest acute ischemia. Mild small vessel changes with moderat e parenchymal volume loss worse in the parietal lobes. Normal posterior fossa. Normal vascular flow v oids at the skull base. No extra-axial fluid collections. No evidence of mass or mass effect. Mild in flammatory changes in the paranasal sinuses. Small retention cyst or polyp LEFT maxillary sinus. Norm al posterior nasopharynx. Mastoid air cells are well aerated. No hemosiderin on susceptibly weighted images. Normal optic chiasm and pituitary infundibulum. Mild s ymmetric atrophy temporal lobes and hippocampal formations. No abnormal gadolinium enhancement. No evidence of enhancing intracranial metastatic disease. Normal visualized dural venous sinuses. No other suspicious findings. IMPRESSION: 1. No evidence of restricted diffusion to suggest acute ischemia. 2. Mild small vessel changes. Moderate parenchymal volume loss worse in the parietal lobes. 3. No hemosiderin on susceptibility-weighted images. 4. No abnormal gadolinium enhancement to indicate metastatic disease.
[2023-02-28] MEDS: gadobenate dimeglumine 20 mL vial IV (14:41)
== END 2023-02-28 13:23 | disposition home or self-care (01) ==
LOC: RAD 13:22
PROVIDERS: PCP Nurse Practitioner; Visit Provider Internal Medicine Medical Oncology
DX: C34.32 Malignant neoplasm of lower lobe, left bronchus or lung (principal); Z87.891 Personal history of nicotine dependence; Z79.02 Long term (current) use of antithrombotics/antiplatelets
CPT/HCPCS: 70553; 99204; A9577

== ENCOUNTER 2023-03-13 06:59 | Day surgery (SDC) | payer OTHER, SELFPAY ==
[2023-03-13] VITALS (8 sets, daily range): BP systolic 117–157; BP diastolic 61–94; PULSE 62–74; RESP 12–18; TEMP 36.1–36.6; O2SAT 95–99
[2023-03-13] MEDS: sodium chloride 0.9% 1,000 ML 30 ML IV (07:23)
--- NOTE | 2023-03-13 08:36 | P.HPUD_ITS ---
Surgery/Procedure H&P Update DATE OF PROCEDURE: March 13, 2023 DATE H&P PERFORMED: 02/28/23 H&P UPDATE INFORMATION: I have reviewed H&P completed within last 30 days, I have examined patient prior to procedure, No changes to prior documentation and H&P is in [facility] EMR on date indicated PLANNED PROCEDURE: Operation Date: 03/13/23 10:15 Proposed Procedures p 06441 port placement Z95.828(Not Applicable) - Christopher Pop MD
--- NOTE | 2023-03-13 09:21 | ANES.PREANE2 ---
Pre-Anesthetic Assessment Height/Weight: Height 1.85 m Temp Pulse Resp BP Pulse Ox O2 Del Method 97.9 F 66 18 157/94 99 Room Air 03/13/23 07:09 03/13/23 07:09 03/13/23 07:09 03/13/23 07:09 03/13/23 07:09 03/13/23 07:11 Operation Date: 03/13/23 10:15 Proposed Procedures p 33431 port placement Z95.828(Not Applicable) - Christopher Pop MD Familial anesthetic complications: None Was Beta Jennifer taken within 24 hours: N/A Was Clonidine taken within 24 hours: N/A Last intake: Intake Last Liquid Date 03/12/23 Last Liquid Time 20:00 Last Solid Date 03/12/23 Last Solid Time 20:00 Social No alcohol and No tobacco Exam alert, oriented x 3, clear to auscultation bilaterally and regular rate & rhythm Airway Mallampati: Class II Dentition: other (missing teeth) Pulmonary Chronic Obstructive Pulmonary Disease CV/HEM Hypertension and Peripheral Vascular Disease GI Gastroesophageal Reflux Disease esophageal cancer s/p esophagectomy Metabolic Hyperlipidemia Anesthetic Plan ASA status: 4 Anesthesia: MAC Risk of > 500 ml blood loss (7ml/kg in children): No Medications/Allergies Home Medications Medication Instructions Recorded Confirmed Last Taken Type amlodipine 2.5 mg tablet 2.5 mg PO DAILY 05/01/22 03/12/23 03/12/23 History atorvastatin 20 mg tablet 10 mg PO DAILY 05/01/22 03/12/23 03/12/23 History meloxicam 15 mg tablet 15 mg PO DAILY 05/01/22 03/13/23 03/07/23 History omeprazole 40 mg capsule,delayed 40 mg PO BID 05/01/22 03/13/23 03/12/23 History release loratadine 10 mg tablet (Allergy 10 mg PO DAILY 01/11/23 03/13/23 01/27/23 History Relief (loratadine)) albuterol sulfate 90 mcg/actuation 1 inh inhalation QID PRN shortness 02/06/23 03/13/23 Unknown Rx aerosol inhaler (Ventolin HFA) of breath or wheezing #8.5 grams cilostazol 100 mg tablet 100 mg PO BID #180 tabs 02/26/23 03/13/23 03/06/23 Rx Allergies Allergy/AdvReac Type Severity Reaction Status Date / Time coconut Allergy ADR-Abdominal Uncoded 03/13/23 07:26 Pain Current Medications Generic Name Dose Route Start Last Admin Trade Name Carl PRN Reason Stop Dose Admin Sodium Chloride 1,000 mls @ 30 mls/hr 03/13/23 07:15 03/13/23 07:23 Sodium Chloride 0.9% IV 03/14/23 07:14 30 mls/hr .Q24H KATELYN Administration PFSH Anesthesia Medical History Degenerative joint disease of spine Degenerative arthritis GERD (gastroesophageal reflux disease) Dyslipidemia Hypertension Small cell lung cancer Peripheral arterial disease with history of revascularization Esophageal cancer Hemochromatosis Surgical History (Updated 02/28/23 @ 15:[address]) Status post surgical removal of malignant neoplasm of skin Removal of skin cancers on the nose and lip Status post arterial stent Right leg Hx of cervical spine surgery x 3 or 4 S/P ORIF (open reduction internal fixation) fracture Left arm fracture History of total right knee replacement History of esophagogastroduodenoscopy (EGD) (09/2021) History of esophagectomy (09/18/18) Ga Bradford esophagectomy History of bronchoscopy (01/28/23) Bronchoscopy/EBUS with transbronchial biopsy of the left lower lobe pulmonary nodule and with FNA biopsies of station 4 LN station 7 lymph nodes Family History Father Stroke Mother Stroke Other Hypertension Denies family history of Diabetes CAD (coronary artery disease) Clotting disorder Dementia Hyperlipidemia Psychiatric illness Chronic kidney disease (CKD) Suicide Anesthesia complication Bleeding disorder Lung disease Cancer Social History Smoking and tobacco/nicotine status: former use of tobacco/nicotine Quit status (tobacco/nicotine): has quit using Year quit tobacco: 2022 Former quit date comment: quit 6 weeks prior/tobacco use 55 years Alcohol intake: current Alcohol intake frequency: 0-2 Drinks per Day Alcohol type: beer Substance/Drug Use: never Data Anesthesia Cardiac Studies: No Data to Display
[2023-03-13] MEDS: ceFAZolin 2,000 MG in sodium chloride 0.9% (plus) 50 ML 100 MG IV (13:04)
--- NOTE | 2023-03-13 13:15 | SC_ITS ---
WS: [id number] C-ARM RADIOGRAPHS CHEST; 4 IMAGES HISTORY: port COMPARISON: None available. Intraoperative imaging during RIGHT Mediport placement. Tip in the distal SVC. IMPRESSION: Intraoperative imaging during Mediport placement.
[2023-03-13] MEDS: lidocaine-epi 2% 20 mL INJ INJECTION (13:30)
[2023-03-13] MEDS: heparin, porcine 1,000 unit/mL INJ 10 mL 10000 UNIT INJECTION (13:30)
--- NOTE | 2023-03-13 13:55 | P.OP_ITS ---
Operative Report Date of procedure: March 13, 2023 Pre-op diagnosis: Lung cancer Post-op diagnosis: Same Post-op findings: normal vascular anatomy Procedure done: Insertion of right IJ port at that Implants: Bard Port-A-Cath Specimens removed/disposition: None Surgeon: Christopher Pop MD Miller Apprentice: KRISTINE OR Staff Estimated blood loss: 5 Complications: none Brief History: 67-year-old male with history of lung cancer who presents to my office for Port-A-Cath placement for chemotherapy. After discussion of all risk and benefits as documented in my preop note we decided to proceed. Procedure: Patient was brought into the OR, she was placed in the supine position. Mother anesthesia sedation was given. The neck was prepped and draped in the usual sterile fashion. Timeout was conducted. I proceeded to identify the right internal jugular vein with ultrasound, I then infiltrated local on top of the vein, the vein was then cannulated under direct ultrasound visualization with an 18-gauge needle, a wire was advanced and the needle removed. Position of the wire was verified with ultrasound and fluoroscopy. I then proceeded to a dminister local anesthesia around the wire insertion site in the tract connecting the neck to the chest and in the right upper chest to create the space for the Port-A-Cath. A 0.5 cm incision was made at the level of the wire insertion site in the neck, at 3 cm incision was made in the right upper chest, this incision was deepened to the subcutaneous tissue using electrocautery, I then proceeded to create a pocket for the Port-A-Cath. Hemostat was used to create a tunnel between the chest and neck wounds. The Port-A-Cath was placed in the pocket and the catheter was tunneled with the provided tunneler from the chest to the neck. The catheter was cut to length using fluoroscopy guidance. I then proceeded to flush the catheter with weak heparin to ensure patency. Subsequently the loop sheath and introducer was advanced over the wire under direct fluoroscopy guidance, the introducer and wire were then removed leaving only the peel-off sheath. The catheter was advanced through the peel-off sheath and the peel-off sheath was removed leaving the catheter in place. Fluoroscopy was done and show adequate position of the catheter, the catheter was accessed and Blood return and flushing correctly. I then hep-locked the catheter. The wound was closed in layers using #3-0 Vicryl for the subcutaneous tissue and #4- 0 Monocryl for the skin. Dermabond was applied. At the end of the procedure all counts were correct, the patient tolerated well the procedure and was transferred to the PACU in stable condition.
--- NOTE | 2023-03-13 14:50 | ANE.PACU2 ---
Inpatient post-anesthesia follow up: Airway intact: Yes Vital signs: Temperature 97.0 F Pulse Rate 69 Respiratory Rate 17 Blood Pressure 130/78 Pulse Oximetry 97 Oxygen Delivery Me thod Room Air Oxygen Flow Rate Fraction of Inspir ed Oxygen Hydration adequate: Yes Nausea and vomiting: No Pain level: 1 Mental status: Baseline
== END 2023-03-13 14:53 | disposition home or self-care (01) ==
PROVIDERS: PCP Nurse Practitioner; Visit Provider Surgery
PROC: (CPT 36561; principal; 2023-03-13 10:05)
DX: C34.90 Malignant neoplasm of unspecified part of unspecified bronchus or lung (principal); J44.9 Chronic obstructive pulmonary disease, unspecified; I10 Essential (primary) hypertension; K21.9 Gastro-esophageal reflux disease without esophagitis; Z85.01 Personal history of malignant neoplasm of esophagus; E78.5 Hyperlipidemia, unspecified; Z87.891 Personal history of nicotine dependence
CPT/HCPCS: 36561; 77001; C1788; J0690; J1644; J2371; J2704; J3010; J7030

== ENCOUNTER 2023-03-20 13:03 | Oncology outpatient (recurring) (ONCR) | payer OTHER, SELFPAY ==
[2023-03-14 08:10] VITALS: BP 153/82; PULSE 76; RESP 16; TEMP 36.4; O2SAT 96
[2023-03-14 08:36] LABS: Basophils # 0.1 10^3/uL (0.0-0.1); Basophils % 0.7 %; Eosinophils # 0.2 10^3/uL (0.0-0.8); Hematocrit 42.3 % (37-53); Lymphocytes # 2.2 10^3/uL (0.8-4.8); Lymphocytes % 30.9 %; Mean Corpuscular HGB Conc 33.3 g/dL (30-55); Mean Corpuscular Hemoglobin 31.9 pg (27-33); Mean Corpuscular Volume 95.7 fl (82-101); Mean Platelet Volume 10.2 fL (7.4-10.4); Monocytes # 0.8 10^3/uL (0.2-0.9); Neutrophils % 54.1 %; Nucleated Red Blood Cells % 0 %; Platelet Count 189 10^3/cmm (157-399); Red Blood Count 4.42 10^6/uL (3.85-5.65); White Blood Count 7.02 10^3/uL (3.29-11.43)
[2023-03-14 09:05] LABS: Alanine Aminotransferase 16 U/L (0-41); Alkaline Phosphatase 76 U/L (40-130); Anion Gap 12.9 (5-19); Aspartate Amino Transferase 16 U/L (0-40); Blood Urea Nitrogen 11 mg/dL (8-23); Calcium 9.1 mg/dL (8.5-10.5); Carbon Dioxide 26 mmol/L (22-29); Chloride 106 mmol/L (98-107); Globulin 2.7 g/dL (1.3-4.6); Glomerular Filtration Rate 113.2 mL/min (90-130); Glucose 109 mg/dL (65-115); Osmolality Calculated 292 mOsm/kg (285-295); Potassium 3.9 mmol/L (3.5-5.1); Sodium 141 mmol/L (136-145); Total Bilirubin 0.4 mg/dL (0.15-1.2); Total Protein 6.7 g/dL (6.6-8.7)
[2023-03-14] MEDS: sodium chloride 0.9% 250 ML 75 ML IV (10:26)
[2023-03-14] MEDS: OLANZapine 5 mg TABLET PO (10:26)
[2023-03-14] MEDS: acetaminophen 325 mg Tablet 650 MG PO (10:26)
[2023-03-14] MEDS: diphenhydrAMINE 50 mg/mL SDV 1mL 25 MG IVP (10:27)
[2023-03-14] MEDS: ondansetron 2 mg/ML SDV 2 mL 8 MG IVP (10:33)
[2023-03-14] MEDS: famotidine 20 mg/2 mL INJ IVP (10:36)
[2023-03-14 10:59] VITALS: BMI 23.6
[2023-03-14] MEDS: fosaprepitant 150 MG in sodium chloride 0.9% 150 ML 300 MG IV (12:19)
[2023-03-14] MEDS: etoposide 205 MG in sodium chloride 0.9%(non-DEHP) 500 ML 510.25 MG IV (13:06)
[2023-03-14] MEDS: FUROsemide 10 mg/mL SDV 2mL 20 MG IVP (15:29)
[2023-03-14] MEDS: potassium chloride 20 MEQ in sodium chloride 0.9% 500 ML 500 MEQ IV (15:30)
[2023-03-14 16:34] VITALS: BP 129/81; PULSE 89; RESP 18; TEMP 36.6; O2SAT 92
[2023-03-15 07:47] VITALS: BP 130/75; PULSE 89; RESP 17; TEMP 36.3; O2SAT 96
[2023-03-15] MEDS: ondansetron 2 mg/ML SDV 2 mL 8 MG IVP (08:14)
[2023-03-15] MEDS: sodium chloride 0.9% 250 ML 75 ML IV (08:14)
[2023-03-15] MEDS: etoposide 205 MG in sodium chloride 0.9%(non-DEHP) 500 ML 510.25 MG IV (08:47)
[2023-03-15 10:29] VITALS: BP 137/73; PULSE 86; RESP 18; TEMP 36.2; O2SAT 97
[2023-03-19 12:58] VITALS: BP 150/88; PULSE 69; RESP 16; TEMP 36.6; O2SAT 97
--- NOTE | 2023-03-19 14:14 | ONCRAD TMN_ITS ---
Radiation Oncology Weekly Treatment Management Patient: John Aggarwal MR#: [id number] : 1955 Attending Physician: Dr. Consuelo Joshi Date of Service: 03/19/2023 Fractions: 3 out of 20 Referring Physician(s) : Benson Clay M.D. Diagnosis: C34.32 - Malignant neoplasm of lower lobe, left bronchus or lung, Diagnosed 01/28/2023 (Active) Radiotherapy to date: Course: Left lung 2023, Treatment Site: LT Lung 2023, Ref. ID: [id number], Energy: 6X, Dose/Fx (cGy): 200, #Fx: 3 / 20, Dose Correction (cGy): 0, Total Dose (cGy): 600, Start Date: 03/14/2023, Elapsed Days: 5 Reason for visit: The patient is being seen today as part of their regularly scheduled weekly on treatment visits to assess for acute toxicities from radiotherapy. Review of Systems: Patient is doing well. He has a good appetite. He has not noticed any changes in respiratory status. His only complaint today is somewhat fatigued. Vital Signs: Performed on 03/19/2023 1:45 PM BMI - 23.59 kg/m2 (high), Height - 73 in, Weight - 178.8 lbs, Temperature - 97.8 f, Pulse - 69 /min, Respiration - 16 /min, O2 Sat - 97 %, Pain - 0, Fatigue - 2 and BP - 150/ 88 mm(hg)(high/). Physical Exam: Without changes Imaging: Radiation therapy imaging related to accurate target localization (i.e. KV, MV and CBCT) was reviewed. Appropriate changes, if any, were made to ensure treatment accuracy. Plan: He is due for chemotherapy today. Will continue with his treatments as planned Signed by: Dr. Consuelo Joshi 03/19/2023 2:13:21 PM
[2023-03-19] MEDS: sodium chloride 0.9% 250 ML 75 ML IV (14:47)
[2023-03-19] MEDS: palonosetron 0.25 mg/5 mL SDV IVP (14:47)
[2023-03-19] MEDS: etoposide 205 MG in sodium chloride 0.9%(non-DEHP) 500 ML 510.25 MG IV (15:28)
[2023-03-19 16:36] VITALS: BP 155/74; PULSE 80; RESP 16; O2SAT 97
== END 2023-03-20 23:59 | disposition home or self-care (01) ==
PROVIDERS: Nurse Practitioner Family; PCP Nurse Practitioner; Visit Provider Radiology Radiation Oncology
DX: Z51.0 Encounter for antineoplastic radiation therapy (principal); C34.32 Malignant neoplasm of lower lobe, left bronchus or lung; C15.5 Malignant neoplasm of lower third of esophagus; Z87.891 Personal history of nicotine dependence
CPT/HCPCS: 77014; 77300; 77301; 77334; 77338; 77386; 77470; 80053; 85025; 96365; 96366; 96367; 96374; 96375; 96413; 96417; 99024; 99215; J1100; J1200; J1453; J1642; J1940; J2405; J2469; J3475; J3480; J3490; J7030; J7040; J7050; J9060; J9181

== ENCOUNTER 2023-03-27 12:03 | Oncology outpatient (recurring) (ONCR) | payer OTHER, SELFPAY ==
[2023-03-25 08:35] VITALS: BP 159/78; PULSE 80; RESP 18; TEMP 36.4; O2SAT 97
[2023-03-25 09:02] LABS: Basophils % 1.6 %; Eosinophils # 0.1 10^3/uL (0.0-0.8); Hematocrit 38.1 % (37-53); Lymphocytes % 39.4 %; Mean Corpuscular HGB Conc 34.9 g/dL (30-55); Mean Corpuscular Volume 91.8 fl (82-101); Mean Platelet Volume 9.7 fL (7.4-10.4); Monocytes # 0.1 10^3/uL (0.2-0.9); Monocytes % 2.8 %; Neutrophils # 1.27 10^3/uL (1.8-7.7); Neutrophils % 50.6 %; Nucleated Red Blood Cells % 0 %; Platelet Count 96 10^3/cmm (157-399); Red Blood Count 4.15 10^6/uL (3.85-5.65); Red Cell Distribution Width 12.7 % (12.1-15.1); White Blood Count 2.51 10^3/uL (3.29-11.43)
[2023-03-25 09:17] LABS: Alanine Aminotransferase 14 U/L (0-41); Albumin Level 3.7 g/dL (3.5-5.2); Alkaline Phosphatase 77 U/L (40-130); Anion Gap 12.9 (5-19); Aspartate Amino Transferase 12 U/L (0-40); Blood Urea Nitrogen 9 mg/dL (8-23); Calcium 9.1 mg/dL (8.5-10.5); Carbon Dioxide 27 mmol/L (22-29); Chloride 102 mmol/L (98-107); Globulin 2.7 g/dL (1.3-4.6); Glomerular Filtration Rate 135.2 mL/min (90-130); Glucose 105 mg/dL (65-115); Osmolality Calculated 285 mOsm/kg (285-295); Potassium 3.9 mmol/L (3.5-5.1); Sodium 138 mmol/L (136-145); Total Bilirubin 0.5 mg/dL (0.15-1.2); Total Protein 6.4 g/dL (6.6-8.7)
--- NOTE | 2023-03-26 13:47 | ONCRAD TMN_ITS ---
Radiation Oncology Weekly Treatment Management Patient: John Aggarwal> MR#: [id number] : 1955> Attending Physician: Mega Delarosa Date of Service: 03/26/2023 Referring Physician(s) : Benson Clay M.D. Diagnosis: C34.32 - Malignant neoplasm of lower lobe, left bronchus or lung, Diagnosed 01/28/2023 (Active) Radiotherapy to date: Course: Left lung 2023, Treatment Site: LT Lung 2023, Ref. ID: [id number], Energy: 6X, Dose/Fx (cGy): 200, #Fx: , Dose Correction (cGy): 0, Total Dose (cGy): 1,600, Start Date: 03/14/2023, Elapsed Days: 12 Reason for visit: The patient is being seen today as part of their regularly scheduled weekly on treatment visits to assess for acute toxicities from radiotherapy. Review of Systems: Patient denies shortness of breath or cough. He has no complaints of hemoptysis. He denies requiring use of any supplemental oxygen. He denies any difficulty swallowing or changes in his appetite. He reports he is sleeping well. Patient indicates that he quit smoking the same day as he was diagnosed with a lung cancer. He had smoked cigars after smoking cigarettes for a number of years. Vital Signs: Performed on 03/26/2023 1:28 PM BMI - 23.379 kg/m2 (high), Height - 73 in, Weight - 177.2 lbs, Temperature - 97.3 f, Pulse - 82 /min, Respiration - 16 /min, O2 Sat - 97 %, Pain - 0, Fatigue - 0 and BP - 153/ 88 mm(hg)(high/). Physical Exam: Alert and oriented male appearing his stated age. Teeth are in poor repair. Lungs clear to auscultation bilaterally. Cardiovascular exam reveals regular rhythm. Skin in the treatment area is intact without erythema or desquamation. Patient ambulatory without assistance. Imaging: Radiation therapy imaging related to accurate target localization (i.e. KV, MV and CBCT) was reviewed. Appropriate changes, if any, were made to ensure treatment accuracy. Plan: Patient is tolerating radiation therapy well with minimal treatment related side effects. Plan to continue prescribed treatment. Signed by: Mega Delarosa 03/26/2023 1:47:02 PM
== END 2023-03-27 23:59 | disposition home or self-care (01) ==
PROVIDERS: Nurse Practitioner Family; PCP Nurse Practitioner; Visit Provider Radiology Radiation Oncology
DX: Z51.0 Encounter for antineoplastic radiation therapy (principal); C34.32 Malignant neoplasm of lower lobe, left bronchus or lung; Z87.891 Personal history of nicotine dependence
CPT/HCPCS: 36591; 77336; 77386; 77427; 80053; 85025; 99024; 99214; J1642

== ENCOUNTER 2023-04-09 09:30 | Oncology outpatient (recurring) (ONCR) | payer OTHER, SELFPAY ==
[2023-04-01 11:20] LABS: Basophils % 1.2 %; Eosinophils % 0.9 %; Hematocrit 37.9 % (37-53); Lymphocytes # 1.1 10^3/uL (0.8-4.8); Lymphocytes % 32.3 %; Mean Corpuscular HGB Conc 33.2 g/dL (30-55); Mean Corpuscular Hemoglobin 31.6 pg (27-33); Mean Platelet Volume 9.1 fL (7.4-10.4); Monocytes # 0.6 10^3/uL (0.2-0.9); Monocytes % 17.2 %; Neutrophils # 1.62 10^3/uL (1.8-7.7); Neutrophils % 46.9 %; Nucleated Red Blood Cells % 0.6 %; Platelet Count 333 10^3/cmm (157-399); Red Blood Count 3.99 10^6/uL (3.85-5.65); Red Cell Distribution Width 13.7 % (12.1-15.1); White Blood Count 3.44 10^3/uL (3.29-11.43)
[2023-04-01 11:40] LABS: Alanine Aminotransferase 19 U/L (0-41); Albumin Level 3.8 g/dL (3.5-5.2); Alkaline Phosphatase 82 U/L (40-130); Anion Gap 10.9 (5-19); Aspartate Amino Transferase 16 U/L (0-40); Blood Urea Nitrogen 9 mg/dL (8-23); Calcium 8.9 mg/dL (8.5-10.5); Carbon Dioxide 27 mmol/L (22-29); Chloride 105 mmol/L (98-107); Globulin 2.7 g/dL (1.3-4.6); Glomerular Filtration Rate 113.2 mL/min (90-130); Glucose 95 mg/dL (65-115); Osmolality Calculated 286 mOsm/kg (285-295); Potassium 3.9 mmol/L (3.5-5.1); Sodium 139 mmol/L (136-145); Total Bilirubin 0.2 mg/dL (0.15-1.2); Total Protein 6.5 g/dL (6.6-8.7)
--- NOTE | 2023-04-02 13:52 | ONCRAD TMN_ITS ---
Radiation Oncology Weekly Treatment Management Patient: John Aggarwal MR#: [id number] : 1955 Attending Physician: Dr. Consuelo Joshi Date of Service: 04/02/2023 Fractions: 13 out of 20 along with chemotherapy Referring Physician(s) : Benson Clay M.D. Diagnosis: C34.32 - Malignant neoplasm of lower lobe, left bronchus or lung, Diagnosed 01/28/2023 (Active) Radiotherapy to date: Course: Left lung 2023, Treatment Site: LT Lung 2023, Ref. ID: [id number], Energy: 6X, Dose/Fx (cGy): 200, #Fx: 13 / 20, Dose Correction (cGy): 0, Total Dose (cGy): 2,600, Start Date: 03/14/2023, Elapsed Days: Reason for visit: The patient is being seen today as part of their regularly scheduled weekly on treatment visits to assess for acute toxicities from radiotherapy. Review of Systems: Patient denies any complaints. The mouth sore he got last week has resolved. Vital Signs: Performed on 04/02/2023 1:34 PM BMI - 23.669 kg/m2 (high), Height - 73 in, Weight - 179.4 lbs, Temperature - 97.3 f, Pulse - 78 /min, Respiration - 16 /min, O2 Sat - 96 %, Pain - 0, Fatigue - 0 and BP - 131/ 75 mm(hg). Physical Exam: Patient is sitting comfortably in the chair. Respiratory status is stable Imaging: Radiation therapy imaging related to accurate target localization (i.e. KV, MV and CBCT) was reviewed. Appropriate changes, if any, were made to ensure treatment accuracy. Plan: Will continue with his treatments as planned. he is due to get chemotherapy next week. Signed by: Dr. Consuelo Joshi 04/02/2023 1:51:17 PM
[2023-04-08 07:49] VITALS: BP 131/71; PULSE 71; TEMP 36.6; O2SAT 98
[2023-04-08 08:03] LABS: Basophils # 0.1 10^3/uL (0.0-0.1); Basophils % 1.2 %; Eosinophils % 0.4 %; Hematocrit 38.6 % (37-53); Lymphocytes # 1.2 10^3/uL (0.8-4.8); Lymphocytes % 23.7 %; Mean Corpuscular HGB Conc 32.9 g/dL (30-55); Mean Corpuscular Hemoglobin 31.1 pg (27-33); Mean Corpuscular Volume 94.4 fl (82-101); Mean Platelet Volume 9.4 fL (7.4-10.4); Monocytes % 18.7 %; Neutrophils # 2.86 10^3/uL (1.8-7.7); Neutrophils % 54.8 %; Nucleated Red Blood Cells % 0.4 %; Platelet Count 317 10^3/cmm (157-399); Red Blood Count 4.09 10^6/uL (3.85-5.65); Red Cell Distribution Width 14.6 % (12.1-15.1)
[2023-04-08 08:23] LABS: Alanine Aminotransferase 17 U/L (0-41); Albumin Level 3.8 g/dL (3.5-5.2); Alkaline Phosphatase 76 U/L (40-130); Anion Gap 10.7 (5-19); Aspartate Amino Transferase 19 U/L (0-40); Blood Urea Nitrogen 12 mg/dL (8-23); Calcium 8.7 mg/dL (8.5-10.5); Carbon Dioxide 27 mmol/L (22-29); Chloride 105 mmol/L (98-107); Globulin 2.7 g/dL (1.3-4.6); Glucose 81 mg/dL (65-115); Osmolality Calculated 287 mOsm/kg (285-295); Potassium 3.7 mmol/L (3.5-5.1); Sodium 139 mmol/L (136-145); Total Bilirubin 0.2 mg/dL (0.15-1.2); Total Protein 6.5 g/dL (6.6-8.7)
[2023-04-08] MEDS: sodium chloride 0.9% 250 ML 50 ML IV (10:31)
[2023-04-08] MEDS: OLANZapine 5 mg TABLET PO (10:35)
[2023-04-08] MEDS: acetaminophen 325 mg Tablet 650 MG PO (10:36)
[2023-04-08] MEDS: diphenhydrAMINE 50 mg/mL SDV 1mL 25 MG IVP (10:38)
[2023-04-08] MEDS: ondansetron 2 mg/ML SDV 2 mL 8 MG IVP (10:43)
[2023-04-08] MEDS: famotidine 20 mg/2 mL INJ IVP (10:49)
[2023-04-08] MEDS: fosaprepitant 150 MG in sodium chloride 0.9% 150 ML 300 MG IV (10:55)
[2023-04-08] MEDS: etoposide 205 MG in sodium chloride 0.9%(non-DEHP) 500 ML 510.25 MG IV (12:11)
[2023-04-08] MEDS: FUROsemide 10 mg/mL SDV 2mL 20 MG IVP (14:47)
[2023-04-08] MEDS: potassium chloride 20 MEQ in sodium chloride 0.9% 500 ML 500 MEQ IV (15:02)
[2023-04-08 16:07] VITALS: BP 129/75; PULSE 74; RESP 17; TEMP 35.9; O2SAT 96
--- NOTE | 2023-04-09 09:35 | ONCRAD TMN_ITS ---
Radiation Oncology Weekly Treatment Management Patient: Alessia Lopez> MR#: [id number] : 1955> Attending Physician: Dr. Consuelo Joshi Date of Service: 04/09/2023 Fractions: Referring Physician(s) : Benson Clay M.D. Diagnosis: C34.32 - Malignant neoplasm of lower lobe, left bronchus or lung, Diagnosed 01/28/2023 (Active) Radiotherapy to date: Course: Left lung 2023, Treatment Site: LT Lung 2023, Ref. ID: [id number], Energy: 6X, Dose/Fx (cGy): 200, #Fx: , Dose Correction (cGy): 0, Total Dose Delivered (cGy): 3,600, Start Date: 03/14/2023, Elapsed Days: 26 Reason for visit: The patient is being seen today as part of their regularly scheduled weekly on treatment visits to assess for acute toxicities from radiotherapy. Review of Systems: No complaints Vital Signs: Performed on 04/09/2023 9:15 AM BMI - 24.065 kg/m2 (high), Height - 73 in, Weight - 182.4 lbs, Temperature - 97.3 f, Pulse - 82 /min, Respiration - 16 /min, O2 Sat - 94 % (low), Pain - 0, Fatigue - 0 and BP - 146/ 72 mm(hg)(high/). Physical Exam: Respiratory rate is regular and non labored. Imaging: Radiation therapy imaging related to accurate target localization (i.e. KV, MV and CBCT) was reviewed. Appropriate changes, if any, were made to ensure treatment accuracy. Plan: Continue treatment as planned Signed by: Dr. Consuelo Joshi 04/09/2023 9:34:12 AM
[2023-04-09] MEDS: sodium chloride 0.9% 250 ML 75 ML IV (10:05)
[2023-04-09] MEDS: ondansetron 2 mg/ML SDV 2 mL 8 MG IVP (10:05)
[2023-04-09] MEDS: etoposide 205 MG in sodium chloride 0.9%(non-DEHP) 500 ML 510.25 MG IV (10:26)
[2023-04-09 11:36] VITALS: BP 145/75; PULSE 79; O2SAT 95
== END 2023-04-09 23:59 | disposition home or self-care (01) ==
PROVIDERS: Internal Medicine Medical Oncology; Nurse Practitioner Family; PCP Nurse Practitioner; Visit Provider Radiology Radiation Oncology
DX: C34.32 Malignant neoplasm of lower lobe, left bronchus or lung; Z51.0 Encounter for antineoplastic radiation therapy; Z53.9 Procedure and treatment not carried out, unspecified reason; Z87.891 Personal history of nicotine dependence; Z51.11 Encounter for antineoplastic chemotherapy; Z85.01 Personal history of malignant neoplasm of esophagus; Z79.899 Other long term (current) drug therapy
CPT/HCPCS: 36591; 77014; 77336; 77386; 77427; 80053; 85025; 96365; 96366; 96367; 96375; 96413; 96417; 99024; 99213; 99214; J1100; J1200; J1453; J1642; J1940; J2405; J3475; J3480; J3490; J7030; J7040; J7050; J9060; J9181

== ENCOUNTER 2023-04-22 09:00 | Oncology outpatient (recurring) (ONCR) | payer OTHER, SELFPAY ==
[2023-04-10 08:48] VITALS: BP 129/70; PULSE 75; RESP 14; TEMP 36.3; O2SAT 94
[2023-04-10] MEDS: palonosetron 0.25 mg/5 mL SDV IVP (08:54)
[2023-04-10] MEDS: sodium chloride 0.9% 250 ML 75 ML IV (08:54)
[2023-04-10] MEDS: etoposide 205 MG in sodium chloride 0.9%(non-DEHP) 500 ML 510.25 MG IV (09:53)
[2023-04-10 11:13] VITALS: BP 135/74; PULSE 77; RESP 16; O2SAT 95
[2023-04-15 13:24] LABS: Basophils # 0.1 10^3/uL (0.0-0.1); Basophils % 0.7 %; Eosinophils # 0.1 10^3/uL (0.0-0.8); Hematocrit 39.2 % (37-53); Lymphocytes # 0.9 10^3/uL (0.8-4.8); Lymphocytes % 12.8 %; Mean Corpuscular HGB Conc 33.4 g/dL (30-55); Mean Corpuscular Hemoglobin 31.4 pg (27-33); Mean Platelet Volume 10.2 fL (7.4-10.4); Monocytes # 0.1 10^3/uL (0.2-0.9); Neutrophils # 5.32 10^3/uL (1.8-7.7); Neutrophils % 79.4 %; Nucleated Red Blood Cells % 0 %; Platelet Count 135 10^3/cmm (157-399); Red Blood Count 4.17 10^6/uL (3.85-5.65); Red Cell Distribution Width 13.4 % (12.1-15.1); White Blood Count 6.71 10^3/uL (3.29-11.43)
[2023-04-15 13:43] LABS: Alanine Aminotransferase 17 U/L (0-41); Albumin Level 3.8 g/dL (3.5-5.2); Alkaline Phosphatase 72 U/L (40-130); Anion Gap 11.2 (5-19); Aspartate Amino Transferase 15 U/L (0-40); Blood Urea Nitrogen 16 mg/dL (8-23); Calcium 8.9 mg/dL (8.5-10.5); Carbon Dioxide 29 mmol/L (22-29); Chloride 104 mmol/L (98-107); Globulin 2.7 g/dL (1.3-4.6); Glomerular Filtration Rate 135.2 mL/min (90-130); Glucose 102 mg/dL (65-115); Osmolality Calculated 291 mOsm/kg (285-295); Potassium 4.2 mmol/L (3.5-5.1); Sodium 140 mmol/L (136-145); Total Bilirubin 0.6 mg/dL (0.15-1.2); Total Protein 6.5 g/dL (6.6-8.7)
[2023-04-15 13:44] LABS: Slide Review Slide Review Perform
[2023-04-22 09:00] LABS: Basophils % 1.8 %; Eosinophils # 0.1 10^3/uL (0.0-0.8); Eosinophils % 4.1 %; Hematocrit 36.4 % (37-53); Lymphocytes # 0.8 10^3/uL (0.8-4.8); Lymphocytes % 44.4 %; Mean Corpuscular HGB Conc 33.2 g/dL (30-55); Mean Corpuscular Hemoglobin 32.1 pg (27-33); Mean Corpuscular Volume 96.6 fl (82-101); Mean Platelet Volume 9.5 fL (7.4-10.4); Monocytes # 0.2 10^3/uL (0.2-0.9); Neutrophils % 35.1 %; Nucleated Red Blood Cells % 0 %; Platelet Count 75 10^3/cmm (157-399); Red Blood Count 3.77 10^6/uL (3.85-5.65); Red Cell Distribution Width 14.3 % (12.1-15.1); White Blood Count 1.71 10^3/uL (3.29-11.43)
[2023-04-22 09:23] LABS: Alanine Aminotransferase 16 U/L (0-41); Albumin Level 3.7 g/dL (3.5-5.2); Alkaline Phosphatase 79 U/L (40-130); Anion Gap 11.1 (5-19); Aspartate Amino Transferase 14 U/L (0-40); Blood Urea Nitrogen 18 mg/dL (8-23); Calcium 9.1 mg/dL (8.5-10.5); Carbon Dioxide 27 mmol/L (22-29); Chloride 109 mmol/L (98-107); Globulin 2.5 g/dL (1.3-4.6); Glomerular Filtration Rate 113.2 mL/min (90-130); Glucose 144 mg/dL (65-115); Osmolality Calculated 300 mOsm/kg (285-295); Potassium 4.1 mmol/L (3.5-5.1); Sodium 143 mmol/L (136-145); Total Bilirubin 0.2 mg/dL (0.15-1.2); Total Protein 6.2 g/dL (6.6-8.7)
== END 2023-04-25 23:59 | disposition home or self-care (01) ==
PROVIDERS: Nurse Practitioner Family; PCP Nurse Practitioner; Visit Provider Radiology Radiation Oncology
DX: C34.32 Malignant neoplasm of lower lobe, left bronchus or lung; Z51.0 Encounter for antineoplastic radiation therapy; Z53.9 Procedure and treatment not carried out, unspecified reason; Z85.01 Personal history of malignant neoplasm of esophagus; Z90.49 Acquired absence of other specified parts of digestive tract; Z92.3 Personal history of irradiation; Z87.891 Personal history of nicotine dependence; Z79.899 Other long term (current) drug therapy; D70.1 Agranulocytosis secondary to cancer chemotherapy; D69.59 Other secondary thrombocytopenia; R71.0 Precipitous drop in hematocrit; T45.1X5A Adverse effect of antineoplastic and immunosuppressive drugs, initial encounter
CPT/HCPCS: 36591; 77014; 77336; 77386; 77427; 80053; 85025; 96367; 96375; 96413; 99214; J1100; J1642; J2469; J7030; J7050; J9181

== ENCOUNTER 2023-04-24 08:54 | Outpatient (CLI) | payer OTHER, SELFPAY ==
--- NOTE | 2023-04-24 09:30 | CT_ITS ---
WS: [id number] CT chest w con* [id number] HISTORY: lung cancer TECHNIQUE: Axial imaging performed through the thorax. Coronal and sagittal reformats are submitted. All CT scans at [facility] use at least one of these dose optimization techniques: automated exposure control; mA and/or kV adjustment per patient size (includes targeted exams where dose is mat ched to clinical indication); or iterative reconstruction. CONTRAST: Omnipaque 350; 100 mL IV. DLP: 443.01 mGy.cm COMPARISON: 01/28/2023, 11/26/2022, head CT 12/25/2022 Lungs and central airway: Previously described PET/CT nodule in the LEFT lower lobe is no longer pres ent. There is now a very slight area of reticular nodular opacification in the posterior LEFT lower l obe. Additional areas of increased irregular opacification with nodularity in the RIGHT upper lobe ar e slightly spiculated. Pleura: Normal. No pleural effusion. Heart and pericardium: Normal size heart with no pericardial effusion. Mediastinum and rahul: Status post esophagectomy with esophageal pull-through. Vessels: Mild atherosclerosis aorta. Normal sized pulmonary artery. Chest wall and lower neck: Right-sided Mediport. Upper abdomen: Pancreatic atrophy. No adrenal mass. The visualized liver is negative. Osseous structures: Increase in thoracic kyphosis and scoliosis. IMPRESSION: 1. Complete resolution PET/CT positive neoplasm in the LEFT lower lobe since 01/28/2023. Patient is s tatus post radiotherapy to this nodule. 2. There are new bilateral (LEFT lower and RIGHT upper lobe) opacifications/nodularities which may b e due to pneumonitis. These are very mild and small in character but will need further evaluation. Re commend follow-up chest CT in 6 months. 3. Status post esophagectomy with pull-through.
[2023-04-24] MEDS: iohexol 350 mg/mL 500 mL Btl (per mL) IV (09:43)
== END 2023-04-24 08:55 | disposition home or self-care (01) ==
PROVIDERS: PCP Nurse Practitioner; Visit Provider Internal Medicine Medical Oncology
DX: C34.32 Malignant neoplasm of lower lobe, left bronchus or lung (principal)
CPT/HCPCS: 71260; Q9967

== ENCOUNTER 2023-05-20 07:30 | Oncology outpatient (recurring) (ONCR) | payer OTHER, SELFPAY ==
[2023-04-29 08:14] VITALS: BP 158/75; PULSE 74; RESP 16; TEMP 36.4; O2SAT 96
[2023-04-29 08:18] LABS: Basophils % 0.9 %; Eosinophils % 0.9 %; Hematocrit 37.6 % (37-53); Lymphocytes # 1.1 10^3/uL (0.8-4.8); Lymphocytes % 32.3 %; Mean Corpuscular HGB Conc 32.2 g/dL (30-55); Mean Corpuscular Hemoglobin 31.3 pg (27-33); Mean Corpuscular Volume 97.4 fl (82-101); Mean Platelet Volume 9.2 fL (7.4-10.4); Monocytes # 0.8 10^3/uL (0.2-0.9); Monocytes % 23.7 %; Neutrophils # 1.42 10^3/uL (1.8-7.7); Neutrophils % 40.5 %; Nucleated Red Blood Cells % 0.6 %; Platelet Count 396 10^3/cmm (157-399); Red Blood Count 3.86 10^6/uL (3.85-5.65); Red Cell Distribution Width 15.2 % (12.1-15.1)
[2023-04-29 08:40] LABS: Alanine Aminotransferase 17 U/L (0-41); Albumin Level 3.9 g/dL (3.5-5.2); Alkaline Phosphatase 80 U/L (40-130); Aspartate Amino Transferase 17 U/L (0-40); Blood Urea Nitrogen 14 mg/dL (8-23); Calcium 8.9 mg/dL (8.5-10.5); Carbon Dioxide 28 mmol/L (22-29); Chloride 106 mmol/L (98-107); Globulin 2.5 g/dL (1.3-4.6); Glomerular Filtration Rate 113.2 mL/min (90-130); Glucose 90 mg/dL (65-115); Magnesium 2.3 mg/dL (1.7-2.3); Osmolality Calculated 294 mOsm/kg (285-295); Sodium 142 mmol/L (136-145); Total Bilirubin 0.2 mg/dL (0.15-1.2); Total Protein 6.4 g/dL (6.6-8.7)
[2023-04-29] MEDS: sodium chlor 0.9% + KCl 20 mEq 20 MEQ/1,000 ML BAG 500 MEQ IV (09:21)
[2023-04-29] MEDS: magnesium sulfate premix 2 GM/50 ML PIGGYBACK IV (09:21)
[2023-04-29] MEDS: sodium chloride 0.9% 250 ML 75 ML IV (10:51)
[2023-04-29] MEDS: acetaminophen 325 mg Tablet 650 MG PO (10:52)
[2023-04-29] MEDS: famotidine 20 mg/2 mL INJ IVP (10:52)
[2023-04-29] MEDS: OLANZapine 5 mg TABLET PO (10:52)
[2023-04-29] MEDS: diphenhydrAMINE 50 mg/mL SDV 1mL 25 MG IVP (10:56)
[2023-04-29] MEDS: ondansetron 2 mg/ML SDV 2 mL 8 MG IVP (10:57)
[2023-04-29] MEDS: fosaprepitant 150 MG in sodium chloride 0.9% 150 ML 300 MG IV (11:12)
[2023-04-29] MEDS: [UNRECOGNIZED DRUG - REMARK] 508.25 MG IV (11:52)
[2023-04-29] MEDS: [UNRECOGNIZED DRUG - REMARK] 622 MG IV (12:59)
[2023-04-29] MEDS: FUROsemide 10 mg/mL SDV 2mL 20 MG IVP (14:12)
[2023-04-29] MEDS: potassium chloride 20 MEQ in sodium chloride 0.9% 500 ML 500 MEQ IV (14:14)
[2023-04-29 15:24] VITALS: BP 134/75; PULSE 72; RESP 18; TEMP 35.9; O2SAT 96
[2023-04-30] MEDS: ondansetron 2 mg/ML SDV 2 mL 8 MG IVP (14:06)
[2023-04-30] MEDS: [UNRECOGNIZED DRUG - REMARK] 508.25 MG IV (14:33)
[2023-04-30 15:58] VITALS: BP 152/66; PULSE 74; O2SAT 95
[2023-05-01] MEDS: palonosetron 0.25 mg/5 mL SDV IVP (13:25)
[2023-05-01] MEDS: sodium chloride 0.9% 250 ML 75 ML IV ×2 (13:25→13:35)
[2023-05-01 13:40] VITALS: BP 128/78; PULSE 76; RESP 18; TEMP 36.4; O2SAT 96
[2023-05-01] MEDS: [UNRECOGNIZED DRUG - REMARK] 508.25 MG IV (13:57)
[2023-05-01 15:18] VITALS: BP 146/79; PULSE 75; TEMP 36.3; O2SAT 94
[2023-05-01] MEDS: pegfilgrastim 6 mg/0.6 mL Kit (onpro) SUBCUT (15:23)
[2023-05-06 10:39] LABS: Basophils % 0.1 %; Eosinophils % 0.1 %; Lymphocytes # 1.2 10^3/uL (0.8-4.8); Lymphocytes % 7.5 %; Mean Corpuscular HGB Conc 32.8 g/dL (30-55); Mean Corpuscular Hemoglobin 31.3 pg (27-33); Mean Corpuscular Volume 95.5 fl (82-101); Mean Platelet Volume 10.1 fL (7.4-10.4); Monocytes # 1.3 10^3/uL (0.2-0.9); Monocytes % 8.4 %; Neutrophils # 12.83 10^3/uL (1.8-7.7); Neutrophils % 83.4 %; Nucleated Red Blood Cells % 0 %; Platelet Count 195 10^3/cmm (157-399); Red Blood Count 4.19 10^6/uL (3.85-5.65); Red Cell Distribution Width 14.9 % (12.1-15.1); White Blood Count 15.39 10^3/uL (3.29-11.43)
[2023-05-13 11:11] LABS: Basophils # 0.1 10^3/uL (0.0-0.1); Basophils % 0.6 %; Eosinophils # 0.1 10^3/uL (0.0-0.8); Eosinophils % 0.5 %; Hematocrit 38.5 % (37-53); Lymphocytes # 1.3 10^3/uL (0.8-4.8); Lymphocytes % 9.6 %; Mean Corpuscular HGB Conc 32.5 g/dL (30-55); Mean Corpuscular Hemoglobin 31.9 pg (27-33); Mean Corpuscular Volume 98.2 fl (82-101); Mean Platelet Volume 10.3 fL (7.4-10.4); Monocytes # 0.8 10^3/uL (0.2-0.9); Monocytes % 6.2 %; Neutrophils # 10.62 10^3/uL (1.8-7.7); Neutrophils % 79.8 %; Nucleated Red Blood Cells # 0.1 /100WBC; Nucleated Red Blood Cells % 0.7 %; Platelet Count 123 10^3/cmm (157-399); Red Blood Count 3.92 10^6/uL (3.85-5.65); Red Cell Distribution Width 15.9 % (12.1-15.1); White Blood Count 13.31 10^3/uL (3.29-11.43)
[2023-05-20 07:50] LABS: Basophils # 0.1 10^3/uL (0.0-0.1); Basophils % 0.5 %; Eosinophils # 0.1 10^3/uL (0.0-0.8); Eosinophils % 0.6 %; Hematocrit 38.5 % (37-53); Lymphocytes # 1.3 10^3/uL (0.8-4.8); Lymphocytes % 8.2 %; Mean Corpuscular HGB Conc 32.2 g/dL (30-55); Mean Corpuscular Volume 99.2 fl (82-101); Mean Platelet Volume 9.3 fL (7.4-10.4); Monocytes # 1.5 10^3/uL (0.2-0.9); Monocytes % 9.4 %; Neutrophils # 12.47 10^3/uL (1.8-7.7); Neutrophils % 80.4 %; Nucleated Red Blood Cells % 0 %; Platelet Count 376 10^3/cmm (157-399); Red Blood Count 3.88 10^6/uL (3.85-5.65); Red Cell Distribution Width 16.4 % (12.1-15.1); White Blood Count 15.51 10^3/uL (3.29-11.43)
[2023-05-20 08:12] LABS: Alanine Aminotransferase 12 U/L (0-41); Albumin Level 3.8 g/dL (3.5-5.2); Alkaline Phosphatase 112 U/L (40-130); Aspartate Amino Transferase 14 U/L (0-40); Blood Urea Nitrogen 13 mg/dL (8-23); Calcium 9.3 mg/dL (8.5-10.5); Carbon Dioxide 26 mmol/L (22-29); Chloride 104 mmol/L (98-107); Globulin 2.8 g/dL (1.3-4.6); Glomerular Filtration Rate 113.2 mL/min (90-130); Glucose 124 mg/dL (65-115); Osmolality Calculated 290 mOsm/kg (285-295); Sodium 139 mmol/L (136-145); Total Bilirubin 0.3 mg/dL (0.15-1.2); Total Protein 6.6 g/dL (6.6-8.7)
[2023-05-20] MEDS: sodium chlor 0.9% + KCl 20 mEq 20 MEQ/1,000 ML BAG 1000 MEQ IV (08:27)
[2023-05-20] MEDS: magnesium sulfate premix 2 GM/50 ML PIGGYBACK IV (08:28)
[2023-05-20] MEDS: sodium chloride 0.9% 250 ML 75 ML IV (10:01)
[2023-05-20] MEDS: OLANZapine 5 mg TABLET PO (10:02)
[2023-05-20] MEDS: acetaminophen 325 mg Tablet 650 MG PO (10:02)
[2023-05-20] MEDS: diphenhydrAMINE 50 mg/mL SDV 1mL 25 MG IVP (10:05)
[2023-05-20] MEDS: ondansetron 2 mg/ML SDV 2 mL 8 MG IVP (10:08)
[2023-05-20] MEDS: famotidine 20 mg/2 mL INJ IVP (10:10)
[2023-05-20] MEDS: fosaprepitant 150 MG in sodium chloride 0.9% 150 ML 300 MG IV (10:11)
[2023-05-20] MEDS: [UNRECOGNIZED DRUG - REMARK] 508.25 MG IV (11:19)
[2023-05-20] MEDS: [UNRECOGNIZED DRUG - REMARK] 622 MG IV (12:28)
[2023-05-20] MEDS: FUROsemide 10 mg/mL SDV 2mL 20 MG IVP (13:37)
[2023-05-20] MEDS: potassium chloride 20 MEQ in sodium chloride 0.9% 500 ML 500 MEQ IV (13:39)
[2023-05-20 15:11] VITALS: BP 149/78; PULSE 105; O2SAT 92
== END 2023-05-20 23:59 | disposition home or self-care (01) ==
PROVIDERS: Internal Medicine Medical Oncology; Nurse Practitioner Family; PCP Nurse Practitioner; Visit Provider Radiology Radiation Oncology
DX: C34.32 Malignant neoplasm of lower lobe, left bronchus or lung (principal); Z53.9 Procedure and treatment not carried out, unspecified reason; Z79.899 Other long term (current) drug therapy
CPT/HCPCS: 36415; 80053; 83735; 85025; 96365; 96366; 96367; 96368; 96372; 96375; 96377; 96413; 96417; 99214; J1100; J1200; J1453; J1642; J1940; J2405; J2469; J2506; J3475; J3480; J3490; J7030; J7040; J7050; J9060; J9181

== ENCOUNTER 2023-05-22 08:00 | Oncology outpatient (recurring) (ONCR) | payer OTHER, SELFPAY ==
[2023-05-21 08:01] VITALS: BMI 23.8
[2023-05-21 08:03] VITALS: BP 179/79; PULSE 88; RESP 18; TEMP 36.6; O2SAT 97
[2023-05-21] MEDS: sodium chloride 0.9% 250 ML 75 ML IV (08:17)
[2023-05-21] MEDS: ondansetron 2 mg/ML SDV 2 mL 8 MG IVP (08:17)
[2023-05-21] MEDS: [UNRECOGNIZED DRUG - REMARK] 508.25 MG IV (09:09)
[2023-05-21 10:25] VITALS: BP 122/68; PULSE 80; RESP 17; TEMP 36.7; O2SAT 98
[2023-05-22 08:03] VITALS: BP 150/82; PULSE 86; RESP 18; TEMP 36.8; O2SAT 95
[2023-05-22] MEDS: sodium chloride 0.9% 250 ML 75 ML IV (08:10)
[2023-05-22] MEDS: palonosetron 0.25 mg/5 mL SDV IVP (08:10)
[2023-05-22] MEDS: [UNRECOGNIZED DRUG - REMARK] 508.25 MG IV (09:13)
[2023-05-22 10:24] VITALS: BP 143/78; PULSE 78; RESP 16; O2SAT 97
== END 2023-05-26 23:59 | disposition home or self-care (01) ==
PROVIDERS: PCP Nurse Practitioner; Visit Provider Radiology Radiation Oncology
DX: C34.32 Malignant neoplasm of lower lobe, left bronchus or lung; Z51.11 Encounter for antineoplastic chemotherapy; Z53.9 Procedure and treatment not carried out, unspecified reason
CPT/HCPCS: 96367; 96375; 96413; J1100; J1642; J2405; J2469; J7030; J7050; J9181

== ENCOUNTER 2023-06-20 08:57 | Outpatient (CLI) | payer OTHER, SELFPAY ==
--- NOTE | 2023-06-20 09:00 | CT_ITS ---
WS: [email or web address] CT chest w con* [id number] HISTORY: surveillance TECHNIQUE: Axial imaging performed through the thorax. Coronal and sagittal reformats are submitted. All CT scans at [facility] use at least one of these dose optimization techniques: automated exposure control; mA and/or kV adjustment per patient size (includes targeted exams where dose is mat ched to clinical indication); or iterative reconstruction. CONTRAST: Omnipaque 350; 100 mL IV. DLP: 452.54 mGy.cm COMPARISON: 04/24/2023, chest CT 11/26/2022, PET/CT 12/25/2022 Lungs and central airway: No pulmonary mass or nodule. There is mild pleural thickening and linear at electasis in the LEFT lower lobe. This may be the result of prior radiotherapy to the LEFT lower lobe pulmonary nodule. There are a few scattered bilateral upper lobe areas of groundglass attenuation re identified. Pleura: Mild pleural thickening and a very small effusion at the LEFT lung base. Heart and pericardium: Normal size heart with no pericardial effusion. Mediastinum and rahul: Status post esophagectomy with gastric pull-through. No recurrent mass at the a nastomotic sites. No adenopathy. Vessels: RIGHT subclavian Port-A-Cath. Mild atherosclerosis aorta. Normal pulmonary artery. Chest wall and lower neck: No soft tissue masses. Upper abdomen: No adrenal mass. The visualized liver is negative. Osseous structures: Moderate increase in thoracic kyphosis. No destructive bone lesions. IMPRESSION: 1. Status post esophagectomy with gastric pull-through. No recurrent mass at the anastomotic site. N o adenopathy. 2. Previously described PET/CT positive nodule in the LEFT lower lobe has resolved. 3. There is mild atelectasis with adjacent pleural thickening and a small effusion in the LEFT lower lobe. This may be related to posttreatment of the PET/CT positive nodule. 4. There are a few scattered areas of persistent groundglass attenuation in the upper lobes. The rep resenting pneumonitis. Recommend follow-up chest CT in 6 months.
[2023-06-20] MEDS: iohexol 350 mg/mL 500 mL Btl (per mL) IV (09:30)
== END 2023-06-20 08:58 | disposition home or self-care (01) ==
LOC: RAD 08:57
PROVIDERS: PCP Nurse Practitioner; Visit Provider Nurse Practitioner Family
DX: C34.32 Malignant neoplasm of lower lobe, left bronchus or lung (principal); Z90.49 Acquired absence of other specified parts of digestive tract; J90 Pleural effusion, not elsewhere classified; R91.8 Other nonspecific abnormal finding of lung field; J92.9 Pleural plaque without asbestos
CPT/HCPCS: 71260; 99214; Q9967

== ENCOUNTER 2023-06-20 11:15 | Oncology outpatient (recurring) (ONCR) | payer OTHER, SELFPAY ==
[2023-05-29 12:42] LABS: Basophils % 0.4 %; Eosinophils % 0.4 %; Hematocrit 39.5 % (37-53); Lymphocytes # 1.3 10^3/uL (0.8-4.8); Lymphocytes % 17.3 %; Mean Corpuscular HGB Conc 32.7 g/dL (30-55); Mean Corpuscular Hemoglobin 31.9 pg (27-33); Mean Corpuscular Volume 97.5 fl (82-101); Mean Platelet Volume 9.4 fL (7.4-10.4); Monocytes # 0.5 10^3/uL (0.2-0.9); Monocytes % 6.5 %; Neutrophils # 5.52 10^3/uL (1.8-7.7); Neutrophils % 74.7 %; Nucleated Red Blood Cells % 0 %; Platelet Count 211 10^3/cmm (157-399); Red Blood Count 4.05 10^6/uL (3.85-5.65); Red Cell Distribution Width 15.5 % (12.1-15.1); White Blood Count 7.39 10^3/uL (3.29-11.43)
[2023-05-29 12:58] LABS: Alanine Aminotransferase 17 U/L (0-41); Albumin Level 4.1 g/dL (3.5-5.2); Alkaline Phosphatase 92 U/L (40-130); Anion Gap 12.5 (5-19); Aspartate Amino Transferase 16 U/L (0-40); Blood Urea Nitrogen 13 mg/dL (8-23); Calcium 9.4 mg/dL (8.5-10.5); Carbon Dioxide 29 mmol/L (22-29); Chloride 106 mmol/L (98-107); Globulin 2.6 g/dL (1.3-4.6); Glomerular Filtration Rate 135.2 mL/min (90-130); Glucose 101 mg/dL (65-115); Osmolality Calculated 296 mOsm/kg (285-295); Potassium 4.5 mmol/L (3.5-5.1); Sodium 143 mmol/L (136-145); Total Bilirubin 0.3 mg/dL (0.15-1.2); Total Protein 6.7 g/dL (6.6-8.7)
[2023-06-05 10:43] LABS: Basophils % 1.1 %; Eosinophils # 0.1 10^3/uL (0.0-0.8); Hematocrit 36.6 % (37-53); Lymphocytes % 27.9 %; Mean Corpuscular HGB Conc 32.8 g/dL (30-55); Mean Corpuscular Hemoglobin 32.2 pg (27-33); Mean Corpuscular Volume 98.1 fl (82-101); Mean Platelet Volume 9.6 fL (7.4-10.4); Monocytes # 0.5 10^3/uL (0.2-0.9); Monocytes % 15.1 %; Neutrophils # 1.92 10^3/uL (1.8-7.7); Neutrophils % 53.6 %; Nucleated Red Blood Cells % 0 %; Platelet Count 141 10^3/cmm (157-399); Red Blood Count 3.73 10^6/uL (3.85-5.65); Red Cell Distribution Width 16.1 % (12.1-15.1); White Blood Count 3.58 10^3/uL (3.29-11.43)
[2023-06-05 10:58] LABS: Alanine Aminotransferase 15 U/L (0-41); Albumin Level 4.1 g/dL (3.5-5.2); Alkaline Phosphatase 76 U/L (40-130); Anion Gap 12.1 (5-19); Aspartate Amino Transferase 17 U/L (0-40); Blood Urea Nitrogen 10 mg/dL (8-23); Calcium 8.9 mg/dL (8.5-10.5); Carbon Dioxide 27 mmol/L (22-29); Chloride 108 mmol/L (98-107); Globulin 2.2 g/dL (1.3-4.6); Glomerular Filtration Rate 135.2 mL/min (90-130); Glucose 104 mg/dL (65-115); Osmolality Calculated 295 mOsm/kg (285-295); Potassium 4.1 mmol/L (3.5-5.1); Sodium 143 mmol/L (136-145); Total Bilirubin 0.4 mg/dL (0.15-1.2); Total Protein 6.3 g/dL (6.6-8.7)
[2023-06-10 12:55] LABS: Basophils % 0.6 %; Eosinophils # 0.1 10^3/uL (0.0-0.8); Eosinophils % 1.4 %; Hematocrit 37.4 % (37-53); Lymphocytes # 2.3 10^3/uL (0.8-4.8); Lymphocytes % 35.1 %; Mean Corpuscular HGB Conc 32.9 g/dL (30-55); Mean Corpuscular Volume 97.4 fl (82-101); Mean Platelet Volume 9.5 fL (7.4-10.4); Monocytes # 1.5 10^3/uL (0.2-0.9); Monocytes % 22.4 %; Neutrophils % 39.7 %; Nucleated Red Blood Cells % 0 %; Platelet Count 219 10^3/cmm (157-399); Red Blood Count 3.84 10^6/uL (3.85-5.65); Red Cell Distribution Width 16.2 % (12.1-15.1); White Blood Count 6.53 10^3/uL (3.29-11.43)
[2023-06-10 13:21] LABS: Alanine Aminotransferase 16 U/L (0-41); Albumin Level 4.1 g/dL (3.5-5.2); Alkaline Phosphatase 70 U/L (40-130); Aspartate Amino Transferase 18 U/L (0-40); Blood Urea Nitrogen 14 mg/dL (8-23); Calcium 9.3 mg/dL (8.5-10.5); Carbon Dioxide 26 mmol/L (22-29); Chloride 107 mmol/L (98-107); Globulin 2.3 g/dL (1.3-4.6); Glomerular Filtration Rate 113.2 mL/min (90-130); Glucose 67 mg/dL (65-115); Osmolality Calculated 295 mOsm/kg (285-295); Sodium 143 mmol/L (136-145); Total Bilirubin 0.3 mg/dL (0.15-1.2); Total Protein 6.4 g/dL (6.6-8.7)
[2023-06-20 10:17] LABS: Basophils # 0.1 10^3/uL (0.0-0.1); Basophils % 1.1 %; Eosinophils # 0.1 10^3/uL (0.0-0.8); Eosinophils % 1.5 %; Hematocrit 40.6 % (37-53); Lymphocytes # 1.1 10^3/uL (0.8-4.8); Lymphocytes % 16.4 %; Mean Corpuscular HGB Conc 32.3 g/dL (30-55); Mean Corpuscular Hemoglobin 31.6 pg (27-33); Mean Corpuscular Volume 97.8 fl (82-101); Mean Platelet Volume 9.6 fL (7.4-10.4); Monocytes # 0.8 10^3/uL (0.2-0.9); Neutrophils % 68.4 %; Nucleated Red Blood Cells % 0 %; Platelet Count 228 10^3/cmm (157-399); Red Blood Count 4.15 10^6/uL (3.85-5.65); Red Cell Distribution Width 15.9 % (12.1-15.1); White Blood Count 6.58 10^3/uL (3.29-11.43)
[2023-06-20 10:34] LABS: Alanine Aminotransferase 17 U/L (0-41); Albumin Level 3.9 g/dL (3.5-5.2); Alkaline Phosphatase 74 U/L (40-130); Anion Gap 10.1 (5-19); Aspartate Amino Transferase 22 U/L (0-40); Blood Urea Nitrogen 8 mg/dL (8-23); Calcium 9.3 mg/dL (8.5-10.5); Carbon Dioxide 31 mmol/L (22-29); Chloride 106 mmol/L (98-107); Globulin 2.7 g/dL (1.3-4.6); Glomerular Filtration Rate 113.2 mL/min (90-130); Glucose 93 mg/dL (65-115); Osmolality Calculated 292 mOsm/kg (285-295); Potassium 5.1 mmol/L (3.5-5.1); Sodium 142 mmol/L (136-145); Total Bilirubin 0.3 mg/dL (0.15-1.2); Total Protein 6.6 g/dL (6.6-8.7)
== END 2023-06-25 23:59 | disposition home or self-care (01) ==
PROVIDERS: Nurse Practitioner Family; PCP Nurse Practitioner; Visit Provider Radiology Radiation Oncology
DX: Z53.9 Procedure and treatment not carried out, unspecified reason (principal); C34.32 Malignant neoplasm of lower lobe, left bronchus or lung; Z79.899 Other long term (current) drug therapy
CPT/HCPCS: 36415; 36591; 80053; 85025; 99214; J1642

== ENCOUNTER → 2023-07-04 15:32 | Outpatient (BNVA) | payer OTHER, SELFPAY | PROVIDERS: PCP Nurse Practitioner; Visit Provider Internal Medicine | DX: I73.9 Peripheral vascular disease, unspecified (principal); Z98.890 Other specified postprocedural states; C34.32 Malignant neoplasm of lower lobe, left bronchus or lung; Z87.891 Personal history of nicotine dependence | CPT/HCPCS: 99214 ==

== ENCOUNTER 2023-07-16 11:38 | Oncology outpatient (recurring) (ONCR) | payer OTHER, SELFPAY ==
[2023-07-16 12:00] VITALS: BP 124/85; PULSE 79; RESP 18; TEMP 36.6; O2SAT 96
[2023-07-16 12:07] VITALS: BP 124/78; PULSE 74; RESP 18; TEMP 36.6; O2SAT 98
== END 2023-07-26 23:59 | disposition home or self-care (01) ==
PROVIDERS: PCP Nurse Practitioner; Visit Provider Radiology Radiation Oncology
DX: Z53.9 Procedure and treatment not carried out, unspecified reason (principal); C34.32 Malignant neoplasm of lower lobe, left bronchus or lung; C15.9 Malignant neoplasm of esophagus, unspecified; J43.9 Emphysema, unspecified; Z87.891 Personal history of nicotine dependence

== ENCOUNTER → 2023-08-06 08:52 | Outpatient (BNVA) | payer OTHER, SELFPAY | PROVIDERS: PCP Nurse Practitioner; Referring Provider Nurse Practitioner; Visit Provider Physician Assistant | DX: M16.12 Unilateral primary osteoarthritis, left hip; Z01.818 Encounter for other preprocedural examination | CPT/HCPCS: 73522; 99204 ==

== ENCOUNTER 2023-08-16 08:19 | Oncology outpatient (recurring) (ONCR) | payer OTHER, SELFPAY | END 2023-08-25 23:59 | disposition home or self-care (01) | PROVIDERS: PCP Nurse Practitioner; Visit Provider Radiology Radiation Oncology | DX: Z45.2 Encounter for adjustment and management of vascular access device; Z53.9 Procedure and treatment not carried out, unspecified reason | CPT/HCPCS: 96523 ==

== ENCOUNTER 2023-09-09 10:53 | Oncology outpatient (recurring) (ONCR) | payer OTHER, SELFPAY ==
--- NOTE | 2023-09-09 11:00 | MR_ITS ---
WS: [id number] MRI BRAIN WITH AND WITHOUT CONTRAST HISTORY: surveillance, small cell lung cancer COMPARISON: 02/28/2023 TECHNIQUE: Multiplanar imaging performed through the brain with MultiHance 18 ml's IV. No acute infarcts are seen. Abraham-white matter differentiation is well preserved. Mild to moderate sma ll vessel ischemic disease with moderate volume loss similar to the prior study. No significant volum e loss in the parietal lobes. No susceptibility artifacts or prior lacunar infarcts. Ventricles and extra-axial spaces are normal. Clivus and pituitary gland are normal. Tornwaldt cyst posterior nasopharynx just to the LEFT of midli ne measures 7.6 mm. Visualized posterior fossa and brainstem are also normal. Postcontrast images are negative for masses or vascular malformations. Dural venous sinuses are normal. Paranasal sinuses: Small mucous retention cyst in the LEFT maxillary sinus. No air-fluid levels. Mastoid air cells: Normal. Calvarium and scalp: Normal. MR/MR head wo/w con [id number] IMPRESSION: 1. No acute hemorrhage or infarct. 2. No evidence for metastatic disease to the brain. 3. Reidentified is mild small vessel ischemic change and moderate parenchymal volume loss as before.
[2023-09-09] MEDS: gadobenate dimeglumine 20 mL vial IV (11:17)
[2023-09-09 11:43] LABS: Blood Urea Nitrogen 19 mg/dL (8-23)
[2023-09-09] MEDS: iohexol 350 mg/mL 500 mL Btl (per mL) IV (12:03)
--- NOTE | 2023-09-09 13:00 | CT_ITS ---
WS: [email or web address] CT CHEST TECHNIQUE: Contrast enhanced CT of the chest with coronal and sagittal reformatted images. CLINICAL INFORMATION: surveillance COMPARISON: CT 06/20/2023 DLP: 437.[address] scans at [facility] use at least one of these dose optimization techniques: automated e xposure control; mA and/or kV adjustment per patient size (includes targeted exams where dose is matc hed to clinical indication); or iterative reconstruction. FINDINGS: Prior postoperative changes esophagectomy with gastric pull through. No evidence of recurrent mass or lesion at the site of anastomosis. No mediastinal or hilar lymphadenopathy. Normal caliber thoracic aorta. Aortic calcification. Proximal main pulmonary arteries are normal. Few small nodules in the RIGHT thyroid. No axillary lymphadenopathy. Adrenal glands are normal. Moderate thoracic kyphosis. Spondylitic changes thoracic spine. Hazy groundglass opacities in the LEFT lower lobe and lingula may be due to treatment-related change s. Small nodule along the LEFT fissure measuring 8 mm may be inflammatory but indeterminate. Recommen d 3-month follow-up. RIGHT lung is well aerated. Slight subsegmental atelectasis RIGHT lower lobe. Fi brotic opacity LEFT lung apex progressed compared to previous measuring 10 mm. Recommend 3-month foll ow-up. CT/CT chest w con* [id number] IMPRESSION: 1. Small nodule along the LEFT fissure measuring 8 mm. Progressed fibrotic opa city LEFT upper lobe at the lung apex. Recommend 3-month follow-up. 2. Hazy groundglass opacities LEFT lower lobe and lingula may be inflammatory or due to treatment-related changes. 3. Stable postoperative changes esophagectomy with gastric pull-through.
== END 2023-09-25 23:59 | disposition home or self-care (01) ==
LOC: RAD 10:54 → ONCMED 09-10 08:27
PROVIDERS: PCP Nurse Practitioner; Visit Provider Nurse Practitioner Family
DX: C34.32 Malignant neoplasm of lower lobe, left bronchus or lung; R91.1 Solitary pulmonary nodule; Z98.890 Other specified postprocedural states; R93.41 Abnormal radiologic findings on diagnostic imaging of renal pelvis, ureter, or bladder
CPT/HCPCS: 70553; 71260; 82565; 84520; A9577; Q9967

== ENCOUNTER → 2023-09-18 08:17 | Outpatient (BNVA) | payer OTHER, SELFPAY | PROVIDERS: PCP Nurse Practitioner; Visit Provider Physician Assistant | DX: M16.12 Unilateral primary osteoarthritis, left hip (principal) | CPT/HCPCS: 99213 ==

== ENCOUNTER 2023-09-30 11:31 | Outpatient (CLI) | payer OTHER, SELFPAY ==
[2023-09-30 12:17] LABS: Charge for UA Resulting for Rev
[2023-09-30 12:18] LABS: Basophils % 0.7 %; Eosinophils # 0.1 10^3/uL (0.0-0.8); Hematocrit 43.1 % (37-53); Lymphocytes # 1.4 10^3/uL (0.8-4.8); Lymphocytes % 22.6 %; Mean Corpuscular HGB Conc 32.5 g/dL (30-55); Mean Corpuscular Hemoglobin 30.8 pg (27-33); Mean Corpuscular Volume 94.7 fl (82-101); Mean Platelet Volume 10.2 fL (7.4-10.4); Monocytes # 0.6 10^3/uL (0.2-0.9); Monocytes % 10.4 %; Neutrophils # 3.87 10^3/uL (1.8-7.7); Neutrophils % 64.1 %; Nucleated Red Blood Cells % 0 %; Platelet Count 204 10^3/cmm (157-399); Red Blood Count 4.55 10^6/uL (3.85-5.65); Red Cell Distribution Width 14.2 % (12.1-15.1); White Blood Count 6.03 10^3/uL (3.29-11.43)
[2023-09-30 12:26] LABS: Urine Color Other (Yellow)
[2023-09-30 12:27] LABS: Blood Urine NPO (Negative); Urine Appearance Clear (CLEAR)
[2023-09-30 12:28] LABS: Add Urine Culture? No; Amorphous Sediment Urine 1+ /hpf; Mucus Urine 1+ /hpf; Squamous Epithelial Cell Urine 0-4 /hpf (0-5); WBC Urine RARE /hpf (0-5)
[2023-09-30 12:36] LABS: Alanine Aminotransferase 19 U/L (0-41); Albumin Level 4.3 g/dL (3.5-5.2); Alkaline Phosphatase 67 U/L (40-130); Anion Gap 15.2 (5-19); Aspartate Amino Transferase 21 U/L (0-40); Blood Urea Nitrogen 15 mg/dL (8-23); Calcium 9.6 mg/dL (8.5-10.5); Carbon Dioxide 27 mmol/L (22-29); Chloride 104 mmol/L (98-107); Globulin 2.8 g/dL (1.3-4.6); Glucose 109 mg/dL (65-115); Osmolality Calculated 295 mOsm/kg (285-295); Potassium 4.2 mmol/L (3.5-5.1); Sodium 142 mmol/L (136-145); Total Bilirubin 0.3 mg/dL (0.15-1.2); Total Protein 7.1 g/dL (6.6-8.7)
== END 2023-09-30 11:32 | disposition home or self-care (01) ==
LOC: LAB 11:32
PROVIDERS: PCP Nurse Practitioner; Visit Provider Physician Assistant
DX: Z01.818 Encounter for other preprocedural examination (principal); M16.12 Unilateral primary osteoarthritis, left hip
CPT/HCPCS: 36415; 80053; 81003; 81015; 85025

== ENCOUNTER → 2023-10-08 08:11 | Outpatient (BNVA) | payer OTHER, SELFPAY | PROVIDERS: PCP Nurse Practitioner; Visit Provider Family Medicine | DX: Z01.818 Encounter for other preprocedural examination (principal) | CPT/HCPCS: 93005 ==

== ENCOUNTER 2023-10-10 08:04 | Oncology outpatient (recurring) (ONCR) | payer OTHER, SELFPAY ==
--- NOTE | 2023-10-10 08:30 | CT_ITS ---
WS: [email or web address] CT LEFT HIP NONCONTRAST [facility] TECHNIQUE: Noncontrast CT of the LEFT hip include the LEFT knee. CLINICAL INFORMATION: OSTEOARTHRITIS LEFT HIP DLP: [address] scans at [facility] use at least one of these dose optimization techniques: automated e xposure control; mA and/or kV adjustment per patient size (includes targeted exams where dose is matc hed to clinical indication); or iterative reconstruction. FINDINGS: Prior postoperative changes RIGHT TKA. Aortic calcification. Bilateral external iliac stents. Sigmoid constipation. Sigmoid diverticulosis. Tiny fat-containing umbilical hernia. Osteopenia. Facet arthro daina lower lumbar spine. Calcified prostate. Vascular calcification. Advanced degenerative arthritis LEFT hip with subchondral cystic change and sclerosis. Gkly-ph-fynv articulation. CT/CT hip LT [facility] [id number] IMPRESSION: Images obtained for preoperative purposes.
== END 2023-10-26 23:59 | disposition home or self-care (01) ==
LOC: RAD 08:04 → ONCMED 11:05
PROVIDERS: PCP Nurse Practitioner; Visit Provider Nurse Practitioner Family
DX: C34.32 Malignant neoplasm of lower lobe, left bronchus or lung (principal); R91.1 Solitary pulmonary nodule; Z98.890 Other specified postprocedural states; R93.41 Abnormal radiologic findings on diagnostic imaging of renal pelvis, ureter, or bladder; M16.12 Unilateral primary osteoarthritis, left hip
CPT/HCPCS: 73700

== ENCOUNTER 2023-10-21 16:47 | Observation (INO) | payer OTHER, SELFPAY ==
[2023-10-21] VITALS (14 sets, daily range): BP systolic 94–145; BP diastolic 55–85; PULSE 53–80; RESP 13–20; TEMP 36.3–36.6; O2SAT 91–98; BMI 25.0
[2023-10-21] MEDS: lactated ringers 500 ML IV (12:55)
[2023-10-21 12:58] LABS: Basophils % 0.6 %; Eosinophils # 0.1 10^3/uL (0.0-0.8); Hematocrit 46.7 % (37-53); Lymphocytes # 1.4 10^3/uL (0.8-4.8); Lymphocytes % 20.3 %; Mean Corpuscular HGB Conc 32.1 g/dL (30-55); Mean Corpuscular Hemoglobin 29.7 pg (27-33); Mean Corpuscular Volume 92.5 fl (82-101); Mean Platelet Volume 9.7 fL (7.4-10.4); Monocytes # 0.8 10^3/uL (0.2-0.9); Monocytes % 10.9 %; Neutrophils # 4.74 10^3/uL (1.8-7.7); Neutrophils % 66.9 %; Nucleated Red Blood Cells % 0 %; Platelet Count 244 10^3/cmm (157-399); Red Blood Count 5.05 10^6/uL (3.85-5.65); Red Cell Distribution Width 14.3 % (12.1-15.1); White Blood Count 7.08 10^3/uL (3.29-11.43)
[2023-10-21] MEDS: ketorolac 30 mg/mL INJ IVP (12:58)
[2023-10-21] MEDS: scopolamine 1.5 Patch 1 PATCH TRANSDERMA (12:59)
[2023-10-21 13:18] LABS: Anion Gap 15.4 (5-19); Blood Urea Nitrogen 16 mg/dL (8-23); Calcium 9.6 mg/dL (8.5-10.5); Carbon Dioxide 26 mmol/L (22-29); Chloride 107 mmol/L (98-107); Creatinine Clr Calc Pharmacy 107.3089; Glucose 108 mg/dL (65-115); Osmolality Calculated 300 mOsm/kg (285-295); Potassium 4.4 mmol/L (3.5-5.1); Sodium 144 mmol/L (136-145)
[2023-10-21] MEDS: acetaminophen 1,000 MG/100 ML PIGGYBACK 400 MG IV ×2 (13:29→21:23)
--- NOTE | 2023-10-21 13:29 | W.PM.OPSFHP ---
Same Day Surgery H&P Indication for Procedure/HPI DATE OF PROCEDURE: October 21, 2023 CHIEF COMPLAINT/INDICATIONFOR SURGICAL PROCEDURE: Left hip degenerative joint disease PREOP DIAGNOSIS: Left hip degenerative joint disease PLANNED PROCEDURE: Operation Date: 10/21/23 14:05 Proposed Procedures p Bert Robot Total Hip Arthroplasty(Left) - Dc Adams DO Medications/Allergies* Home Medications Medication Instructions Recorded Confirmed Type atorvastatin 20 mg tablet 10 mg PO DAILY 05/01/22 10/21/23 History meloxicam 15 mg tablet 15 mg PO DAILY 05/01/22 10/21/23 History omeprazole 40 mg capsule,delayed 40 mg PO BID 05/01/22 10/21/23 History release loratadine 10 mg tablet (Allergy 10 mg PO DAILY 01/11/23 10/21/23 History Relief (loratadine)) vitamin B complex 1 cap PO DAILY 04/22/23 10/21/23 History amlodipine 2.5 mg tablet 5 mg PO DAILY 10/08/23 10/21/23 History acetaminophen 325 mg capsule 650 mg PO QID PRN Pain 10/21/23 10/21/23 History (Tylenol) Allergies/Adverse Reactions Allergy/AdvReac Type Severity Reaction Status Date / Time coconut Allergy ADR-Abdominal Uncoded 10/18/23 09:19 Pain Pertinent History/Comorbid Conditions* Medical History (Updated 08/06/23 @ 10:02 by DEIRDRE Resendiz) Degenerative joint disease of spine Degenerative arthritis GERD (gastroesophageal reflux disease) Dyslipidemia Hypertension Small cell lung cancer Peripheral arterial disease with history of revascularization Esophageal cancer Hemochromatosis Surgical History (Updated 04/26/23 @ 10:32 by Benson Clay MD) Hx of colonoscopy with polypectomy 3 or 4 years ago Port-A-Cath in place 03/13/23 Dr Hanley Status post surgical removal of malignant neoplasm of skin Removal of skin cancers on the nose and lip Status post arterial stent Right leg Hx of cervical spine surgery x 3 or 4 S/P ORIF (open reduction internal fixation) fracture Left arm fracture History of total right knee replacement History of esophagogastroduodenoscopy (EGD) (09/2021) History of esophagectomy (09/18/18) [place] esophagectomy History of bronchoscopy (01/28/23) Bronchoscopy/EBUS with transbronchial biopsy of the left lower lobe pulmonary nodule and with FNA biopsies of station 4 LN station 7 lymph nodes Family History (Updated 05/01/22 @ 13:14 by Christina Zapien LPN) Hypertension Stroke Father Mother Denies family history of Diabetes CAD (coronary artery disease) Clotting disorder Dementia Hyperlipidemia Psychiatric illness Chronic kidney disease (CKD) Suicide Anesthesia complication Bleeding disorder Lung disease Cancer Social History Smoking and tobacco/nicotine status: never used tobacco/nicotine Quit status (tobacco/nicotine): has quit using Year quit tobacco: 2022 Former quit date comment: quit 6 weeks prior/tobacco use 55 years Alcohol intake: current Alcohol intake frequency: 0-2 Drinks per Day Alcohol type: beer Substance/Drug Use: never Pertinent Exam Findings alert, oriented x 3, operative site marked and procedure specific exam findings Please refer to detailed orthopedic examination on 09/18/2023: Left hip -Palpable groin tenderness and palpable tenderness over left greater trochanter. Painful range of motion in hip with minimal external rotation and abrupt endpoint. Patient able to perform straight leg raise and can dorsiflex and plantarflex foot. Recommendations Surgery/Procedure today Other Plans: Severe left hip degenerative joint disease, patient was seen evaluated and cleared by preoperative clearance team. He does have history of peripheral vascular disease as well as iliac stents. I reviewed these on his CT scan for preoperative planning at this point in time I feel as though his close proximity to his peripheral vascular disease of his stents more so his femoral arteries have not calcifications I feel he would be an better approach from the posterior approach instead of anterior due to excessive anterior retraction with an anterior approach. I talked about this in detail with the patient and he completely understands and agrees to proceed with current plan will proceed with a left total hip arthroplasty with Bert robotic assisted through a posterior approach. Patient understands the ins and outs procedure the risk benefits complication alternatives with surgery and through shared decision make elects proceed with surgical intervention. All questions have been answered at this time. Will proceed with surgery today. Coding Level of Care Code Acute Code for Vanessakathia Kendall
--- NOTE | 2023-10-21 13:29 | ANES.PREANE2 ---
Pre-Anesthetic Assessment Height/Weight: Height 6 ft 1 in Weight 190 lb Temp Pulse Resp BP Pulse Ox O2 Del Method 97.6 F 70 18 120/77 97 Room Air 10/21/23 12:31 10/21/23 12:31 10/21/23 12:31 10/21/23 12:31 10/21/23 12:31 10/21/23 12:31 Operation Date: 10/21/23 14:05 Proposed Procedures p Bert Robot Total Hip Arthroplasty(Left) - Dc Adams, Last intake: Intake Last Liquid Date 10/20/23 Last Liquid Time 18:30 Last Solid Date 10/20/23 Last Solid Time 18:30 Social No alcohol and No tobacco Exam alert, oriented x 3, clear to auscultation bilaterally and regular rate & rhythm Airway Submandibular: within normal limits Cervical ROM: within normal limits Mallampati: Class III Comments: Comments: poor dentition, multiple missing teeth Anesthetic Plan ASA status: 3 Other: No prior issues with anesthesia NPO since MN S/P esophagectomy with chemo/radiaiton for Cx of esophagus and lungs Patient uses inhalers but denies oxygen use Labs reviewed and acceptable for surgery Mets>4 labs 10/20 reviewed and acceptable for surgery EKG showing L Binford deviation Plan for Spinal anaesthetic Medications/Allergies Home Medications Medication Instructions Recorded Confirmed Last Taken Type atorvastatin 20 mg tablet 10 mg PO DAILY 05/01/22 10/21/23 10/21/23 History meloxicam 15 mg tablet 15 mg PO DAILY 05/01/22 10/21/23 10/11/23 History omeprazole 40 mg capsule,delayed 40 mg PO BID 05/01/22 10/21/23 10/21/23 History release loratadine 10 mg tablet (Allergy 10 mg PO DAILY 01/11/23 10/21/23 10/21/23 History Relief (loratadine)) albuterol sulfate 90 mcg/actuation 1 inh inhalation QID PRN shortness 02/06/23 10/21/23 Unknown Rx aerosol inhaler (Ventolin HFA) of breath or wheezing #8.5 grams cilostazol 100 mg tablet 100 mg PO BID #180 tabs 02/26/23 10/21/23 10/11/23 Rx vitamin B complex 1 cap PO DAILY 04/22/23 10/21/23 10/20/23 History amlodipine 2.5 mg tablet 5 mg PO DAILY 10/08/23 10/21/23 10/21/23 History acetaminophen 325 mg capsule 650 mg PO QID PRN Pain 10/21/23 10/21/23 10/21/23 History (Tylenol) Allergies Allergy/AdvReac Type Severity Reaction Status Date / Time coconut Allergy ADR-Abdominal Uncoded 10/18/23 09:19 Pain PFSH Anesthesia Medical History Degenerative joint disease of spine Degenerative arthritis GERD (gastroesophageal reflux disease) Dyslipidemia Hypertension Small cell lung cancer Peripheral arterial disease with history of revascularization Esophageal cancer Hemochromatosis Surgical History Hx of colonoscopy with polypectomy 3 or 4 years ago Port-A-Cath in place 03/13/23 Dr Hanley Status post surgical removal of malignant neoplasm of skin Removal of skin cancers on the nose and lip Status post arterial stent Right leg Hx of cervical spine surgery x 3 or 4 S/P ORIF (open reduction internal fixation) fracture Left arm fracture History of total right knee replacement History of esophagogastroduodenoscopy (EGD) (09/2021) History of esophagectomy (09/18/18) [place] esophagectomy History of bronchoscopy (01/28/23) Bronchoscopy/EBUS with transbronchial biopsy of the left lower lobe pulmonary nodule and with FNA biopsies of station 4 LN station 7 lymph nodes Family History Father Stroke Mother Stroke Other Hypertension Denies family history of Diabetes CAD (coronary artery disease) Clotting disorder Dementia Hyperlipidemia Psychiatric illness Chronic kidney disease (CKD) Suicide Anesthesia complication Bleeding disorder Lung disease Cancer Social History Smoking and tobacco/nicotine status: never used tobacco/nicotine Quit status (tobacco/nicotine): has quit using Year quit tobacco: 2022 Former quit date comment: quit 6 weeks prior/tobacco use 55 years Alcohol intake: current Alcohol intake frequency: 0-2 Drinks per Day Alcohol type: beer Substance/Drug Use: never Data Anesthesia 10/21/23 12:50 10/21/23 12:50 Short CBC 10/21/23 Range/Units 12:50 WBC 7.08 (3.29-11.43) 10^3/uL Hgb 15.00 (11.27-16.99) g/dL Hct 46.7 (37-53) % MCV 92.5 (82-101) fl Plt Count 244 (157-399) 10^3/cmm Neut % (Auto) 66.9 % Neut # (Auto) 4.74 (1.8-7.7) 10^3/uL BMP 10/21/23 12:50 Sodium 144 Potassium 4.4 Chloride 107 Carbon Dioxide 26 BUN 16 Creatinine 0.8 Glucose 108 Calcium 9.6 Cardiac Studies: No Data to Display
[2023-10-21] MEDS: sodium chloride 0.9% 1,000 ML 30 ML IV (13:30)
[2023-10-21] MEDS: ceFAZolin 2,000 MG in sodium chloride 0.9% (plus) 50 ML 100 MG IV ×2 (14:14→21:50)
[2023-10-21] MEDS: tranexamic acid 1,000 mg/10mL SDV 1000 MG IV (14:41)
[2023-10-21] MEDS: vancomycin 1,000 MG SDV 1000 MG XX (16:26)
--- NOTE | 2023-10-21 16:44 | PM.OP ---
Operative Report Date of procedure: October 21, 2023 Surgeon: Dc Adams DO Edging Supervisor: James Adams PA-C: PA was necessary for assistance in this case with leg positioning, hip reductions, retraction and protection of neurovascular structures as well as assistance in implantation wound closure and dressing application. Procedure: Preop Diagnosis? Left hip degenerative joint disease Post-op?diagnosis: Left hip degenerative joint disease Procedure done: Left total hip arthroplasty?robotic assisted Bert?posterior?approach Implants: Johny total hip arthroplasty implants 58 mm cluster hole acetabular shell 6.5 mm x (20mm x15mm) acetabular screws Alpha code F MDM cementless metal liner Femoral stem size #3 high offset insignia Alpha code F MDM -2.7 mm head Surgeon: Dc Adams DO Estimated blood loss: 150 mL IV fluids: 1000 mL Urine output: 100 mL Complications: None Condition: stable Disposition: floor Brief History: Patient's been seen and worked up by myself in the outpatient setting and findings consistent with Left hip degenerative joint disease. He has failed conservative treatment this is causing him severe pain and inability to perform his job from a daily aspect. We talked about his treatment?options as far as nonoperative and?operative intervention. he ultimately through shared decision-making would like to proceed with a Left total hip arthroplasty. we detailed out his risk benefits complications alternatives to surgical and nonsurgical treatment?options. Understanding his risk for surgery he elects to proceed with Left total hip arthroplasty robotic assisted Bert utilizing a?posterior?approach. All questions answered. He elects proceed with surgery today. Procedure: Patient was seen evaluate in preoperative holding area.? Consent was reviewed and signed with patient.? Correct extremity was then marked.? Patient seen evaluate by anesthesia department once cleared for surgery pt was taken back to the?operative suite.? Patient underwent spinal anesthesia per the anesthesia department.? This point time pt was then placed on the?operative suite and table.? Pt was then placed in lateral decubitus patient worked with the Left hip up.? Patient was secured in the lateral decubitus position with pegboard. All bony prominences well-padded he was properly secured to the bed.? At this point time the Left lower extremity was then prepped and draped in standard orthopedic fashion with care not to drape out the iliac wing for pelvic array placement.? Final timeout performed.? Patient received appropriate preoperative antibiotics. Started off with establishment of my pelvic array pins.? A small longitudinal incision was made directly over the iliac wing.? Sharp scalpel excision through skin and subcutaneous tissue directly onto bone.? Next I then loaded my pelvic pin.? This was then drilled through the iliac wing corridor with excellent fixation.? Next I then loaded the guide which was placed directly onto bone and then subsequently placed 2 more pins to secure fixation.? Next the pelvic array was then sent had excellent visualization with the Bert robot and was secured. Skin staple was placed distally on the lateral aspect of the distal femur as a utilization of a checkpoint marker distally for appropriate leg length measuring. This was used as my distal reference point. Next I proceeded with my standard?posterior?approach.? Sharp scalpel through skin and subcutaneous tissue this was centered over the greater trochanter.? I then utilized a Camara elevator over the gluteus ted fascia.? Next the fascia was then split longitudinally with bipolar electrocautery.? Next a Charnley retractor was then placed.? All bone was then placed into the abductors.? A standard full-thickness release of the piriformis and the short external rotators along with the capsule to grade 1 full thick sleeve for later repair was then placed straight down to the lesser trochanter.? Lesser trochanter was then subsequently identified.? Prior to dislocating the hip we then placed our greater trochanter femur checkpoint.? We marked our appropriate checkpoint for referencing on pelvic array.? At this point in time we then established both of our checkpoints as well as referencing for leg lengths I utilized the EKG pad as my distal reference point. The legs were marked and traced to have appropriate position on the drapes to allow for accurate reading.? Preoperative leg lengths set. Once this was then established I then proceeded with dislocation of the femoral head.? At this point Hohmann's were then placed superiorly and inferiorly along the femoral neck..? The sciatic nerve was protected throughout this case.? At this point time I then utilized the Bert robot and referencing point to reference different aspects along the femoral head and neck for my appropriate neck length.? These were referenced on the inferior mid substance as well as up into the superior shoulder of the femoral neck.? This marked my oscillating saw was used to make my femoral neck cut.? Femoral head was then removed. Next the leg was placed in appropriate position and my anterior and?posterior?acetabular retractors then placed.? Next I excised the labrum and then remove the pulvinar.? I did do a small release of the inferior capsule which was severely taut to allow for easier placement of my reamers as well as reduction.? Acetabulum was thoroughly irrigated. At this point in time keeping my retractors in place I subsequently loaded up the [employer] robot for my acetabular reaming.?? Next I then set my 56 reamer under the [employer] robot and subsequently held this with appropriate preplanned preop planned version of 40 degrees of abduction angle as well as 20 degrees of anteversion.? After doing this reaming it was deemed patient would tolerate going up and sized to a 58 reamer to get full circumferential bleeding bone. Then done and 58 reamer had satisfied position and circumferential bleeding bone. This preoperative plan was then subsequently made to accommodate for ranges of motion of impingement?that was assessed preoperatively utilizing the [employer] robotic software technology. ? We?opened up the acetabular shell clusterhole of the 58 mm [place] this was then loaded onto my impacting system and then I subsequently impacted this to appropriate depth.? This was then removed from the robot and I used the Bert probe at the center to confirm on the CT scan?that this was down on bone which it was.? Next I then drilled and placed 2 acetabular screws with excellent fixation these were drilled and measured to be 20mm and 20mm. One of the 20 mm screws was slightly little longer and as result switch to 15 which had excellent purchase. All the screws were placed into the posterior?superior safe zone aspect of the acetabulum had excellent bite and fixation.? The cup was solid and had excellent press-fit fixation. next,?opened the alpha code F MDM cementless liner then subsequently placed in appropriate position and impacted into place.? I then placed a sponge into the acetabulum to protect the polyethylene while my femur preparation was performed.? At this point time I then utilized a small rongeur to clear off the shoulder of the femoral neck to clear out the soft tissue envelope for my box osteotome.? Next box osteotome was used a canal finder was placed as well as a lateral lysing rattail rasp.? Once I was appropriately lateralized I then sequentially broached up to a size 6 femoral stem.? This was impacted to appropriate depth and flushed with my femoral neck cut.? This point I loaded a standard offset with a -2.7mm size neck and subsequently reduced the hip.? This point in time the size 6 stem was deemed to be an appropriate. There was slightly increased shuck and adjustment was made to the stem adding on a high offset stem which had excellent abductor tensioning and stability. At this point I am satisfied with plan plans of a high offset size 6 insignia with a -2.7 mm neck length. This point time utilized the Bert probe from our femur checkpoint down to her distal checkpoint. Satisfied with this trial implants, at this point I dislocated the hip and then called for my final implants with excellent stability in all planes.??Opened up a size 6 femoral stem [place] insignia high offset. My trials were then removed and then subsequently impacted my [place] insignia high offset stem to the same level.? This point in time I trialed -2.7 mm neck length which helped match with Bert robotic assistance had appropriate leg lengths comparative to the contralateral hip and this was confirmed clinically as well as had excellent stability I felt as though this was best combination with leg lengths being equal as well as with stability and elected for the final -2.7 mm MDM femoral head. Final MDM femoral head component was then?opened and the trunnion was dried and this was impacted with excellent fixation and the hip was subsequently reduced.? We measured our final leg lengths which were appropriate patient had excellent stability in all ranges of motion.? This point time a robotic pins and checkpoints were removed.? I remove the femur checkpoint as well as my pelvic array and iliac wing pins.? Appropriate counts were then made.? This point time thoroughly irrigated the wound bed with pulse lavage.? Vancomycin powder was then sprinkled into the wound bed for infection prophylaxis.? I then performed a standard capsular and external rotator repair utilizing #5 Ethibond and this was tied and repaired through bone tunnels hip, sciatic nerve was protected throughout this portion of the case. Was then kept in abduction external rotation and subsequently closed the fascial layer with Ethibond suture as well as running strata fix suture.? I then closed the deep subcutaneous layer as well as superficial subcutaneous layer with running strata fix suture as well as 3-0strata fix for skin.? Prineo glue dressing was then placed over the skin.? I then irrigated the pelvic array pin site.? There is were then closed with interrupted 0, 2-0 Vicryl suture and Monocryl as well as Prineo glue for the skin.? Incisions were then covered with joel and Silverlon dressing.? Patient was awakened from anesthesia and taken to PACU in stable condition Disposition: Patient taken to PACU in stable condition.? Patient will receive appropriate discharge instructions as well as DVT prophylaxis and pain medication.? Patient will be admitted to the floor for observation should be evaluated by the internal medicine team for medical management.? Patient received appropriate DVT prophylaxis as well as pain medication PT/OT weightbearing as tolerated Left lower extremity with?posterior?hip precautions, Postoperative Abx and TXA.? We will follow-up with patient in the office in 2 weeks.? Patient understands agrees with current plan.? All questions answered.
--- NOTE | 2023-10-21 16:56 | XRR_ITS ---
PROCEDURE INFORMATION: Exam: XR Left Hip Exam date and time: 10/21/2023 5:06 PM Age: 67 years old Clinical indication: Device placement; Prior surgery; Surgery date: Post-operative (0-2 days); Surgery type: Post op lt total hip; Additional info: Post op left scotty, do in pacu TECHNIQUE: Imaging protocol: Radiologic exam of the left hip. Views: 2 or 3 views hip with pelvis when performed. COMPARISON: CT hip LT [facility] [id number] 10/10/2023 8:22 AM FINDINGS: Bones/joints: A left hip prosthesis is well seated and well aligned. Soft tissues: Soft tissue air is noted. XR/XR hip LT 2-3V wo/w pel* [id number] IMPRESSION: Intact hip prosthesis
--- NOTE | 2023-10-21 16:59 | W.PM.BPON ---
Date of Procedure: [October 21, 2023] Surgeon: [Dr. Adams DO] Electroneurodiagnostic Technician(s): [James Adams PA-C] Procedure(s) performed: [Left total hip arthroplasty (posterior approach) with Bert robotic assist] Findings of the procedure(s): [Left hip degenerative joint disease] Estimated blood loss: [150 ml] Specimen(s) removed: [Femoral head] Post-operative diagnosis: [Left hip degenerative joint disease]
--- NOTE | 2023-10-21 17:02 | PM.PACU ---
PACU note Narrative: Patient is a 67-year-old male that just underwent left hip total arthroplasty. Pt transferred to PACU in stable condition. Dressing is dry. pt is awake and alert. Compartments are soft and compressible. Distal pulses are palpable toes are warm and well-perfused. Cap refill is normal and under 2 seconds. Unable to further assess motor or sensory function due to residual spinal block. Pain is controlled. Exam: awake Disposition: admitted
--- NOTE | 2023-10-21 17:15 | ANE.PACU2 ---
Inpatient post-anesthesia follow up: Airway intact: Yes Vital signs: Temperature 97.4 F Pulse Rate 69 Respiratory Rate 15 Blood Pressure 128/74 Pulse Oximetry 95 Oxygen Delivery Me thod Room Air Oxygen Flow Rate 6 Fraction of Inspir ed Oxygen Hydration adequate: Yes Nausea and vomiting: No Pain level: 1 Mental status: Baseline
--- NOTE | 2023-10-21 17:30 | P.CONIM_ITS ---
Providers/Reason For Consult 2 Consulting Physician/Specialty*: Orthopedic surgery Reason for Consult*: Medical Management Attending Physician: Dc Adams DO Primary Care Provider: MATT Saenz History of Present Illness History of Present Illness Pleasant 67-year-old gentleman with history of emphysema, esophageal cancer, esophagectomy, small cell cancerous nodule, hemochromatosis, PAD, osteoarthritis underwent elective SHIMA of the right hip in an uneventful procedure. EBL 150 mL. He is currently in recovery, she is awake and alert, he states he is doing well. No trouble breathing. No chest pain or pressure. He states he otherwise has been at baseline state of health, denies any issues over the preceding week or more prior to surgery. Review of Systems 2 Const: Denies: fever(s), chills, body aches or malaise ENMT: Denies: throat pain Card: Denies: chest pain, edema, pre-syncope or dyspnea on exertion Resp: Denies: dyspnea, productive cough or change in phlegm color GI: Denies: abdominal pain, nausea, vomiting, diarrhea, constipation, hematochezia or melena : Denies: flank pain, difficulty urinating, urinary frequency or hematuria Musc: Denies: back pain, joint swelling or joint redness Skin/Breast: Denies: rash or new lesions Neuro: Denies: headache(s) Medications/Allergies Home Medications Medication Instructions Recorded Confirmed Last Taken Type atorvastatin 20 mg tablet 10 mg PO DAILY 05/01/22 10/21/23 10/21/23 History meloxicam 15 mg tablet 15 mg PO DAILY 05/01/22 10/21/23 10/11/23 History omeprazole 40 mg capsule,delayed 40 mg PO BID 05/01/22 10/21/23 10/21/23 History release loratadine 10 mg tablet (Allergy 10 mg PO DAILY 01/11/23 10/21/23 10/21/23 History Relief (loratadine)) albuterol sulfate 90 mcg/actuation 1 inh inhalation QID PRN shortness 02/06/23 10/21/23 Unknown Rx aerosol inhaler (Ventolin HFA) of breath or wheezing #8.5 grams cilostazol 100 mg tablet 100 mg PO BID #180 tabs 02/26/23 10/21/23 10/11/23 Rx vitamin B complex 1 cap PO DAILY 04/22/23 10/21/23 10/20/23 History amlodipine 2.5 mg tablet 5 mg PO DAILY 10/08/23 10/21/23 10/21/23 History acetaminophen 325 mg capsule 650 mg PO QID PRN Pain 10/21/23 10/21/23 10/21/23 History (Tylenol) Allergies Allergy/AdvReac Type Severity Reaction Status Date / Time coconut Allergy ADR-Abdominal Uncoded 10/18/23 09:19 Pain Current Medications Generic Name Dose Route Start Last Admin Trade Name Freq PRN Reason Stop Dose Admin Sodium Chloride 1,000 mls @ 30 mls/hr 10/21/23 12:30 10/21/23 16:27 Sodium Chloride 0.9% IV 10/22/23 12:29 Infused .Q24H KATELYN Infusion PFSH Acute 2 PFSH: Medical History Degenerative joint disease of spine Degenerative arthritis GERD (gastroesophageal reflux disease) Dyslipidemia Hypertension Small cell lung cancer Peripheral arterial disease with history of revascularization Esophageal cancer Hemochromatosis Surgical History Hx of colonoscopy with polypectomy 3 or 4 years ago Port-A-Cath in place 03/13/23 Dr Hanley Status post surgical removal of malignant neoplasm of skin Removal of skin cancers on the nose and lip Status post arterial stent Right leg Hx of cervical spine surgery x 3 or 4 S/P ORIF (open reduction internal fixation) fracture Left arm fracture History of total right knee replacement History of esophagogastroduodenoscopy (EGD) (09/2021) History of esophagectomy (09/18/18) [place] esophagectomy History of bronchoscopy (01/28/23) Bronchoscopy/EBUS with transbronchial biopsy of the left lower lobe pulmonary nodule and with FNA biopsies of station 4 LN station 7 lymph nodes Family History Father Stroke Mother Stroke Other Hypertension Denies family history of Diabetes CAD (coronary artery disease) Clotting disorder Dementia Hyperlipidemia Psychiatric illness Chronic kidney disease (CKD) Suicide Anesthesia complication Bleeding disorder Lung disease Cancer Social History Smoking and tobacco/nicotine status: never used tobacco/nicotine Quit status (tobacco/nicotine): has quit using Year quit tobacco: 2022 Former quit date comment: quit 6 weeks prior/tobacco use 55 years Alcohol intake: current Alcohol intake frequency: 0-2 Drinks per Day Alcohol type: beer Substance/Drug Use: never Vitals/I&O/Wt Last Vital Signs Temp 97.3 F L 10/21/23 17:16 Pulse 58 L 10/21/23 17:16 Resp 17 10/21/23 17:16 BP 103/59 10/21/23 17:16 Pulse Ox 96 10/21/23 17:16 O2 Del Method Room Air 10/21/23 17:16 O2 Flow Rate 6 10/21/23 16:56 10/21/23 10/21/23 10/21/23 06:59 14:59 22:59 Intake Total 650 / 650 1050 / 1700 Output Total 250 / 250 Balance 650 / 650 800 / 1450 Weight last 48 hrs Weight 86.183 kg Physical Exam 2 Const: COMMON NORMALS: patient oriented x3 and alert GENERAL APPEARANCE: c ooperative ORIENTATION/CONSCIOUSNESS: Yes awake HENMT: COMMON NORMALS: oropharynx normal Neck/C-Spine: COMMON NORMALS: no JVD Resp: COMMON NORMALS: normal respiratory effort and clear to auscultation bilaterally AUSCULTATION: clear to auscultation bilaterally Cardio: COMMON NORMALS: no JVD, regular rhythm, S1 normal heart sound present, S2 normal heart sound present and No murmurs present (Cardio) RHYTHM: regular rhythm HEART SOUNDS: S1 normal heart sound present and S2 normal heart sound present GI: COMMON NORMALS: Normal to inspection, nondistended, normoactive bowel sounds present, Soft to palpation and non-tender PALPATION: Yes Soft to palpation Back/Pelvis: OTHER: Lower extremities in abductor brace. Extremity: COMMON NORMALS: no joint enlargement and no pedal edema Neuro: COMMON NORMALS: patient oriented x3 and moves all extremities S ENSORIUM/ORIENTATION: Yes alert Skin: COMMON NORMALS: no rashes or lesions noted GENERAL SKIN EXAM: no rashes or lesions noted Urinary Catheter Management: Gracia: Cath Placed During This Visit: yes Urinary Catheter Date of Insertion: 10/21/23 Urinary Catheter Time of Insertion: 14:35 Data 10/21/23 12:50 10/21/23 12:50 A&P Assessment and plan (1) S/P total hip arthroplasty: Reviewed vitals, CBC, BMP, hip/pelvis x-ray, orthopedic note, discussed with orthopedic surgeon. Status post uneventful procedure. EBL 150 mL. He denies any issues after waking up currently. Will reassess blood counts. Pain control, antiemetic as needed. Gracia catheter in place for now. Pending mobilization and assessment by PT. Surgery likely to start Eliquis tomorrow if all goes well for DVT prophylaxis. SCDs for now. As he is awake, advance to regular diet, and positive balance. Further IV fluids for now. Encouraged him to use incentive spirometer. (2) Emphysema lung: He reports he is not normally on oxygen. Monitor for any hypoxia. He has a long smoking history of smoking cigars, but has since quit. Qualifiers: Emphysema type: other Qualified Code(s): J43.8 - Other emphysema (3) Peripheral arterial disease with history of revascularization: Continue statin. Will be started on Eliquis tomorrow. May benefit from antiplatelet as well once safe to add. (4) Osteoarthritis of left hip: Plan HTN: Monitor blood pressures. Soft at the moment, for now will not resume a lot of pain. HLD: Continue statin GERD: Continue PPI BID Esophageal cancer: States he takes regular consistency diet Hemochromatosis: Managed by intermittent phlebotomy Small cell left lower lobe cancer: Status post chemoradiation Consult Attestations 2 Medical Necessity Statement: Hospitalization required for postoperative management after total hip arthroplasty and gentleman with underlying multiple comorbidities including emphysema, PAD, HTN, GERD, hemochromatosis, 2 types of cancer and other as above. and High MDM includes amount and/or complexity of data reviewed/ordered [ previous or external records, resulted lab(s)/test(s), ordered lab(s)/test(s) and other healthcare professional discussion] as documented Diagnoses S/P total hip arthroplasty Z96.649 Other emphysema J43.8 Emphysema type: other Peripheral arterial disease with history of revascularization I73.9; Z98.890 Osteoarthritis of left hip M16.12
[2023-10-21] MEDS: sennosides-docusate Tablet 2 TAB PO (18:28)
[2023-10-21] MEDS: iron polysaccharide complex 150 mg Capsule PO (18:28)
[2023-10-21] MEDS: calcium carb-vit d 600mg/400unit 1 Tablet 1 EACH PO (18:28)
[2023-10-21] MEDS: mupirocin oint 22 gm 1 APPLIC NASAL (18:29)
[2023-10-21] MEDS: chlorhexidine gluconate 0.12% Btl 473 mL 30 ML MUCOUS MEM ×2 (18:29→21:12)
[2023-10-21] MEDS: oxyCODONE 5 mg IR Tab/Cap PO (20:58)
[2023-10-21] MEDS: pantoprazole DR 40 mg Tablet PO (20:58)
[2023-10-21] MEDS: tranexamic acid 1,000 MG/100 ML PREMIX 600 MG IV (20:58)
[2023-10-21] MEDS: ketorolac 30 mg/mL INJ 15 MG IVP (21:20)
[2023-10-21] MEDS: HYDROmorphone 1 mg/mL INJ 1 mL 0.5 MG IVP (23:01)
[2023-10-22] VITALS (8 sets, daily range): BP systolic 100–128; BP diastolic 66–74; PULSE 64–90; RESP 15–20; TEMP 36.3–36.8; O2SAT 93–95
[2023-10-22] MEDS: oxyCODONE 5 mg IR Tab/Cap PO ×2 (03:01→09:18)
[2023-10-22] MEDS: acetaminophen 1,000 MG/100 ML PIGGYBACK 400 MG IV ×2 (05:41→13:41)
[2023-10-22 05:56] LABS: Basophils % 0.4 %; Eosinophils # 0.1 10^3/uL (0.0-0.8); Eosinophils % 0.7 %; Hematocrit 40.5 % (37-53); Lymphocytes % 9.9 %; Mean Corpuscular HGB Conc 31.6 g/dL (30-55); Mean Corpuscular Hemoglobin 30.4 pg (27-33); Mean Corpuscular Volume 96.2 fl (82-101); Mean Platelet Volume 10.2 fL (7.4-10.4); Monocytes # 0.8 10^3/uL (0.2-0.9); Monocytes % 8.5 %; Neutrophils # 7.78 10^3/uL (1.8-7.7); Neutrophils % 80.3 %; Nucleated Red Blood Cells % 0 %; Platelet Count 219 10^3/cmm (157-399); Red Blood Count 4.21 10^6/uL (3.85-5.65); Red Cell Distribution Width 14.4 % (12.1-15.1); White Blood Count 9.69 10^3/uL (3.29-11.43)
[2023-10-22] MEDS: ceFAZolin 2,000 MG in sodium chloride 0.9% (plus) 50 ML 100 MG IV (06:07)
[2023-10-22 06:13] LABS: Anion Gap 11.8 (5-19); Blood Urea Nitrogen 13 mg/dL (8-23); Calcium 8.7 mg/dL (8.5-10.5); Carbon Dioxide 25 mmol/L (22-29); Chloride 106 mmol/L (98-107); Creatinine Clr Calc Pharmacy 109.5292; Glomerular Filtration Rate 113.2 mL/min (90-130); Glucose 125 mg/dL (65-115); Osmolality Calculated 288 mOsm/kg (285-295); Potassium 4.8 mmol/L (3.5-5.1); Sodium 138 mmol/L (136-145)
[2023-10-22] MEDS: ketorolac 30 mg/mL INJ 15 MG IVP (06:41)
[2023-10-22] MEDS: calcium carb-vit d 600mg/400unit 1 Tablet 1 EACH PO (09:16)
[2023-10-22] MEDS: sennosides-docusate Tablet 2 TAB PO (09:17)
[2023-10-22] MEDS: multivitamin therapeutic Tablet 1 TAB PO (09:18)
[2023-10-22] MEDS: mupirocin oint 22 gm 1 APPLIC NASAL (09:18)
[2023-10-22] MEDS: chlorhexidine gluconate 0.12% Btl 473 mL 30 ML MUCOUS MEM ×2 (09:19→13:45)
[2023-10-22] MEDS: iron polysaccharide complex 150 mg Capsule PO (09:19)
[2023-10-22] MEDS: apixaban 5 mg Tablet 2.5 MG PO (09:19)
[2023-10-22] MEDS: pantoprazole DR 40 mg Tablet PO (09:19)
--- NOTE | 2023-10-22 10:35 | PC.CHAP ---
Pastoral Care Encounter/Spiritual Assessment Type of Contact [] Declined boat dispatcher visit [] Patient/Family/Request visit [] Outpatient visit [] Follow-up visit [] Physician referral [] Code/Alert [] Routine visit [] Staff referral [] Actively dying [x] Patient sleeping [] Family support [] [] Out of room [] Palliative care [] [] Receiving care in room [] Pre-surgical visit [] Trauma [] Long length of stay [] ICU visit [] Other: Relational/Emotional Strength [] Patient feels connected with others/family/visitors/staff [] Distress [] Loneliness/isolation [] Abandonment Spirituality of Patient [] Person of [place] [] Attends Pentecostal of their [place] [] Believes in Prayer [] Reads Bible or Anabaptism materials [] There are Spiritual issues to be addressed Printing Roller Handler Interventions [] Prayer [] Active listening [] Non-anxious presence [] Spiritual/emotional support [] Crisis/trauma care [] Spiritual counseling [] Bereavement support [] Provided bereavement packet [] Provided Bible/devotional materials [] Provided toy/stuffed animal, coloring book to patient or family member [] Provided Communion [] Anointing/[place] [] Salvation [] Completed spiritual assessment [] Other: Impact on Illness or Injury [] Angry [] Fearful [] Anxious [] Often cries [] Exhaustion [] Unable to work [] Unable to attend faith [] Unable to walk/stand [] Unable to read [] Unable to drive [] Unable to eat/drink [] Unable to sleep [] Unable to be with family [] Patient intubated [] Other: Summary Time spent with patient
--- NOTE | 2023-10-22 12:37 | P.PN_ITS ---
Subjective 2 Subjective: He reports he is doing very well. No difficulty breathing. No chest pain. He is working with some testing spirometry. He has gotten up with therapy. He is looking forward to going home. Vitals/I&O/Wt Last Vital Signs Temp 97.6 F 10/22/23 11:46 Pulse 79 10/22/23 11:46 Resp 17 10/22/23 11:46 BP 111/69 10/22/23 11:46 Pulse Ox 95 10/22/23 11:46 O2 Del Method Room Air 10/22/23 11:46 O2 Flow Rate 6 10/21/23 16:56 10/21/23 10/22/23 10/22/23 22:59 06:59 14:59 Intake Total 1900 / 2550 150 / 2700 360 / 360 Output Total 600 / 600 400 / 1000 Balance 1300 / 1950 -250 / 1700 360 / 360 Weight last 48 hrs Weight 90.446 kg Weight 86.183 kg Weight 86.183 kg Physical Exam 2 Narrative: Sitting up in chair. Const: COMMON NORMALS: patient oriented x3 and alert GENERAL APPEARANCE: c ooperative ORIENTATION/CONSCIOUSNESS: Yes awake HENMT: COMMON NORMALS: oropharynx normal Neck/C-Spine: COMMON NORMALS: no JVD Resp: COMMON NORMALS: normal respiratory effort and clear to auscultation bilaterally AUSCULTATION: clear to auscultation bilaterally Cardio: COMMON NORMALS: no JVD, regular rhythm, S1 normal heart sound present, S2 normal heart sound present and No murmurs present (Cardio) RHYTHM: regular rhythm HEART SOUNDS: S1 normal heart sound present and S2 normal heart sound present GI: COMMON NORMALS: Normal to inspection, nondistended, normoactive bowel sounds present, Soft to palpation and non-tender PALPATION: Yes Soft to palpation Extremity: COMMON NORMALS: no joint enlargement and no pedal edema Neuro: COMMON NORMALS: patient oriented x3 and moves all extremities S ENSORIUM/ORIENTATION: Yes alert Skin: COMMON NORMALS: no rashes or lesions noted GENERAL SKIN EXAM: no rashes or lesions noted Urinary Catheter Management: Gracia: Cath Placed During This Visit: yes, but has since been removed by the nurse Reason for Continuing Indwelling Catheter: Perioperative Use in Selected Surgeries Urinary Catheter Date of Insertion: 10/21/23 Urinary Catheter Time of Insertion: 14:35 Date Urinary Catheter Removed: 10/22/23 Time Urinary Catheter Discontinued: 06:20 Data 10/22/23 05:31 10/22/23 05:31 A&P Assessment and plan (1) S/P total hip arthroplasty: Reviewed vitals, CBC, BMP, and orthopedic note. Hemoglobin 12.8. He is doing well. Denies any issues. He did require a dose of IV hydromorphone last night. He has gotten up with therapy. He is working with [facility] making plans for discharge home today. He feels ready. Discussed with nursing, telephonic case manager. He is going with DVT prophylaxis with Eliquis, he is aware of the bleeding risks and precautions. He knows to seek medical attention in case of any worsening or new concerning symptoms. Discussed with him to avoid meloxicam if possible given PAD. Tylenol as needed. Avoid long-term opioid as discussed with him. (2) Emphysema lung: He reports he is not normally on oxygen. Monitor for any hypoxia. He has a long smoking history of smoking cigars, but has since quit. Qualifiers: Emphysema type: other Qualified Code(s): J43.8 - Other emphysema (3) Peripheral arterial disease with history of revascularization: Continue statin. Will be discharging with Eliquis for DVT prophylaxis. However, discussed with him also regarding starting antiplatelet, additional risk of bleeding. 81 mg aspirin. And as per current recommendations continuing with combined antiplatelet plus anticoagulation long-term with possibly Xarelto, discussed with him to follow-up with primary provider to further consider this option. (4) Osteoarthritis of left hip: Plan HTN: Monitor blood pressures. On low-dose amlodipine. 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 and High MDM includes amount and/or complexity of data reviewed/ordered [ previous or external records, resulted lab(s)/test(s), ordered lab(s)/test(s) and other healthcare professional discussion] and described risk of complication, morbidity or mortality of management as documented Diagnoses S/P total hip arthroplasty Z96.649 Other emphysema J43.8 Emphysema type: other Peripheral arterial disease with history of revascularization I73.9; Z98.890 Osteoarthritis of left hip M16.12
--- NOTE | 2023-10-22 13:25 | PM.DCS ---
Discharge Providers Date of Admission: 10/21/23 16:47 Date of Discharge: October 22, 2023 Attending Provider at Admission: Dc Adams DO Attending Provider at Discharge: Dc Adams DO Primary Care Provider: MATT Saenz Diagnoses at Discharge Discharge Diagnosis (1) S/P total hip arthroplasty: Status: Acute (2) Emphysema lung: Status: Acute Qualifiers: Emphysema type: other Qualified Code(s): J43.8 - Other emphysema (3) Peripheral arterial disease with history of revascularization: Status: Acute (4) Osteoarthritis of left hip: Status: Acute Reason for Visit Reason for Visit: M16.12, IM form only Physical Exam Urinary Catheter Management: Gracia: Cath Placed During This Visit: yes, but has since been removed by the nurse Reason for Continuing Indwelling Catheter: Perioperative Use in Selected Surgeries Urinary Catheter Date of Insertion: 10/21/23 Urinary Catheter Time of Insertion: 14:35 Date Urinary Catheter Removed: 10/22/23 Time Urinary Catheter Discontinued: 06:20 Discharge Data Studies Completed and Pending Completed Studies During Hospitalization Category Date Time Status XR hip LT 2-3V wo/w pel* [id number] Routine Exams 10/21/23 16:56 Completed Pending at discharge Category Date Time Status Basic Metabolic Panel AM LABS Lab 10/23/23 04:00 Ordered Basic Metabolic Panel AM LABS Lab 10/24/23 04:00 Ordered Complete Blood Count w/Auto AM LABS Lab 10/23/23 04:00 Ordered Complete Blood Count w/Auto AM LABS Lab 10/24/23 04:00 Ordered Radiology Impressions Hip/Pelvis X-Ray 10/21/23 16:56 IMPRESSION: Intact hip prosthesis Laboratory Results WBC 9.69 10^3/uL (3.29-11.43) 10/22/23 05:31 RBC 4.21 10^6/uL (3.85-5.65) 10/22/23 05:31 Hgb 12.80 g/dL (11.27-16.99) 10/22/23 05:31 Hct 40.5 % (37-53) 10/22/23 05:31 MCV 96.2 fl (82-101) 10/22/23 05:31 MCH 30.4 pg (27-33) 10/22/23 05:31 MCHC 31.6 g/dL (30-55) 10/22/23 05:31 RDW 14.4 % (12.1-15.1) 10/22/23 05:31 Plt Count 219 10^3/cmm (157-399) 10/22/23 05:31 MPV 10.2 fL (7.4-10.4) 10/22/23 05:31 Neut % (Auto) 80.3 % 10/22/23 05:31 Lymph % (Auto) 9.9 % 10/22/23 05:31 Reagan % (Auto) 8.5 % 10/22/23 05:31 Eos % (Auto) 0.7 % 10/22/23 05:31 Baso % (Auto) 0.4 % 10/22/23 05:31 Neut # (Auto) 7.78 10^3/uL (1.8-7.7) H 10/22/23 05:31 Lymph # (Auto) 1.0 10^3/uL (0.8-4.8) 10/22/23 05:31 Reagan # (Auto) 0.8 10^3/uL (0.2-0.9) 10/22/23 05:31 Eos # (Auto) 0.1 10^3/uL (0.0-0.8) 10/22/23 05:31 Baso # (Auto) 0.0 10^3/uL (0.0-0.1) 10/22/23 05:31 Nucleated RBC % (auto) 0 % 10/22/23 05:31 Nucleated RBCs # 0.0 /100WBC 10/22/23 05:31 Sodium 138 mmol/L (136-145) 10/22/23 05:31 Potassium 4.8 mmol/L (3.5-5.1) 10/22/23 05:31 Chloride 106 mmol/L (98-107) 10/22/23 05:31 Carbon Dioxide 25 mmol/L (22-29) 10/22/23 05:31 Anion Gap 11.8 (5-19) 10/22/23 05:31 BUN 13 mg/dL (8-23) 10/22/23 05:31 Creatinine 0.7 mg/dL (0.7-1.2) 10/22/23 05:31 GFR Calculation 113.2 mL/min (90-130) 10/22/23 05:31 Glucose 125 mg/dL (65-115) H 10/22/23 05:31 Calculated Osmolality 288 mOsm/kg (285-295) 10/22/23 05:31 Calcium 8.7 mg/dL (8.5-10.5) 10/22/23 05:31 Blood Type O Positive 10/21/23 12:50 Rho(D) Type Rh positive 10/21/23 12:50 Antibody Screen Negative 10/21/23 12:50 Vitals Last Vital Signs Temp 97.6 F 10/22/23 11:46 Pulse 79 10/22/23 11:46 Resp 17 10/22/23 11:46 BP 111/69 10/22/23 11:46 Pulse Ox 95 10/22/23 11:46 O2 Del Method Room Air 10/22/23 11:46 O2 Flow Rate 6 10/21/23 16:56 Discharge Plan Discharge Patient Disposition: Home Health Service Condition: Stable Prescriptions: New oxycodone 5 mg tablet 5 mg PO Q6H PRN (Reason: pain postop) 7 Days Qty: 28 0RF ondansetron 4 mg tablet,disintegrating 4 mg PO Q8H PRN (Reason: nausea and vomiting) 3 Days Qty: 9 0RF Eliquis 2.5 mg tablet 2.5 mg PO BID 35 Days Qty: 70 0RF aspirin 81 mg capsule 81 mg PO DAILY Qty: 90 0RF Continued loratadine [Allergy Relief (loratadine)] 10 mg tablet 10 mg PO DAILY vitamin B complex Capsule 1 cap PO DAILY atorvastatin 20 mg tablet 10 mg PO DAILY omeprazole 40 mg capsule,delayed release(DR/EC) 40 mg PO BID amlodipine 2.5 mg tablet 5 mg PO DAILY cilostazol 100 mg tablet 100 mg PO BID Qty: 180 3RF albuterol sulfate [Ventolin HFA] 90 mcg/actuation HFA aerosol inhaler 1 inh inhalation QID PRN (Reason: shortness of breath or wheezing) Qty: 8.5 4RF Tylenol 325 mg Capsule 650 mg PO QID PRN (Reason: Pain) Discontinued meloxicam 15 mg tablet 15 mg PO DAILY Discharge Orders: Discharge Order (Routine); Ordered 10/22/23 Ordered By: Dc Adams Referrals: [facility] [Outside] Auguste,Jeana R, PHONE BANKER [Primary Care Provider] - 4-7 days Dc Adams DO [Physician] - Discharge Diet: Regular Discharge Activity: Limit activity as instructed and Use walker/crutches as instructed Patient Instructions: Acute Wound Care (DC), Opioid Safety, Post Anesthesia Care Activity Restrictions/Additional Instructions: Orthopedic discharge instructions: Patient should keep dressings clean dry and intact Okay to shower over dressings if they do become wet these should be removed and new dressings applied Keep incisions clean dry and intact, leave Silverlon bandage dressings on in place for 7 days after that may rinse incisions with warm soapy water pat dry and redress with a dry dressing Weight-bear as tolerated to operative lower extremity Posterior hip precautions as instructed by physical therapy (Don't bend your hip past 90 degrees, and keep your toes pointing forward or slightly out.?Don't rotate your leg too far inward, and keep your knees apart. Do not cross your legs past midline) Ice as needed for pain and swelling Take pain medication as prescribed Take antinausea medication as needed Supplement with Citracal vitamin D for bone health and healing Take Colace as needed for constipation Take blood thinner as prescribed (Eliquis) Follow-up in the orthopedic office in 2 weeks Contact the office for any questions or concerns Coding Level of Care Code Acute Code for Chg Fwd Diagnoses S/P total hip arthroplasty Z96.649 Other emphysema J43.8 Emphysema type: other Peripheral arterial disease with history of revascularization I73.9; Z98.890 Osteoarthritis of left hip M16.12
== END 2023-10-22 14:48 | disposition home health service (06) ==
LOC: MEDSURG 16:53
PROVIDERS: Physician Assistant; Admitting Provider Student in an Organized Health Care Education/Training Program; PCP Nurse Practitioner; Visit Provider Student in an Organized Health Care Education/Training Program
PROC: 8E0Y0CZ Robotic Assisted Procedure of Lower Extremity, Open Approach (ICD-10-PCS; CPT 27130; principal; 2023-10-21 13:20)
DX: M16.12 Unilateral primary osteoarthritis, left hip (principal); Z96.649 Presence of unspecified artificial hip joint; J43.8 Other emphysema; I73.9 Peripheral vascular disease, unspecified; C15.9 Malignant neoplasm of esophagus, unspecified; Z98.890 Other specified postprocedural states; I10 Essential (primary) hypertension; E78.5 Hyperlipidemia, unspecified; K21.9 Gastro-esophageal reflux disease without esophagitis; E83.119 Hemochromatosis, unspecified; C34.32 Malignant neoplasm of lower lobe, left bronchus or lung; Z87.891 Personal history of nicotine dependence
CPT/HCPCS: 20985; 27130; 36415; 51702; 73502; 80048; 85025; 86850; 86900; 97116; 97161; 97167; C1713; C1776; G0378; J0131; J0690; J1170; J1885; J2704; J3010; J3370; J7030; J7120

== ENCOUNTER → 2023-11-05 14:18 | Outpatient (BNVA) | payer OTHER, SELFPAY | PROVIDERS: PCP Nurse Practitioner; Visit Provider Physician Assistant | DX: Z96.642 Presence of left artificial hip joint (principal) | CPT/HCPCS: 73502; 99024 ==

== ENCOUNTER 2023-12-16 11:23 | Oncology outpatient (recurring) (ONCR) | payer OTHER, SELFPAY ==
--- NOTE | 2023-12-10 12:30 | CTR_ITS ---
PROCEDURE INFORMATION: Exam: CT Chest With Contrast; Diagnostic Exam date and time: 12/10/2023 1:10 PM Age: 68 years old Clinical indication: Condition or disease; Lung condition and disease; Cancer of the lung; Bilateral; Unspecified; Primary cancer: Lung, esophageal; Prior surgery; Surgery date: 6+ months; Surgery type: Esophageal port; Additional info: Small cell carcinoma of lower lobe of left lung TECHNIQUE: Imaging protocol: Diagnostic computed tomography of the chest with contrast. Radiation optimization: All CT scans at this facility use at least one of these dose optimization techniques: automated exposure control; mA and/or kV adjustment per patient size (includes targeted exams where dose is matched to clinical indication); or iterative reconstruction. Contrast material: OMNI 350; Contrast volume: 100 ml; Contrast route: INTRAVENOUS (IV); COMPARISON: CT chest w con* [id number] 09/09/2023 11:53 AM RADIATION DOSE METRICS: Total DLP (mGy-cm): 537.53 FINDINGS: Tubes, catheters and devices: Right chest wall port a cath. Lungs: Suspect evolving posttreatment changes in the left lower lobe to include scarring/atelectasis. Stable density in the left lung apex. No mass. Pleural spaces: Unremarkable. No pneumothorax. No pleural effusion. Heart: No cardiomegaly. Trace pericardial effusion, similar to prior. Esophagus: Stable postsurgical changes from esophagectomy with gastric pull-through. Lymph nodes: Stable prominent mediastinal/left paratracheal lymph nodes (series 4, image 23). No new or enlarging lymph nodes. Vasculature: Unremarkable. No aortic aneurysm. Bones/joints: No acute fracture. Soft tissues: Unremarkable. CT/CT chest w con* [id number] IMPRESSION: 1. Suspect evolving posttreatment changes in the left lower lobe to include scarring/atelectasis. Attention on follow-up imaging. 2. Stable density in the left lung apex which could represent apical scarring or atelectasis. 3. Additional stable findings as above.
[2023-12-10 13:06] LABS: Blood Urea Nitrogen 9 mg/dL (8-23); Glomerular Filtration Rate 112.8 mL/min (90-130)
[2023-12-10] MEDS: iohexol 350 mg/mL 500 mL Btl (per mL) IV (13:17)
--- NOTE | 2023-12-10 16:06 | PC.NURSE ---
IV accessed for Ct Scan with good blood return and secured for the radiation department.[email or web address]
[2023-12-16 11:35] LABS: Basophils # 0.1 10^3/uL (0.0-0.1); Basophils % 0.9 %; Eosinophils # 0.1 10^3/uL (0.0-0.8); Hematocrit 38.2 % (37-53); Lymphocytes # 1.7 10^3/uL (0.8-4.8); Lymphocytes % 26.3 %; Mean Corpuscular HGB Conc 31.9 g/dL (30-55); Mean Corpuscular Hemoglobin 29.8 pg (27-33); Mean Corpuscular Volume 93.2 fl (82-101); Mean Platelet Volume 10.2 fL (7.4-10.4); Monocytes # 0.7 10^3/uL (0.2-0.9); Neutrophils # 3.94 10^3/uL (1.8-7.7); Neutrophils % 60.6 %; Nucleated Red Blood Cells % 0 %; Platelet Count 220 10^3/cmm (157-399); Red Cell Distribution Width 14.8 % (12.1-15.1)
[2023-12-16 11:59] LABS: Alanine Aminotransferase 13 U/L (0-41); Alkaline Phosphatase 72 U/L (40-130); Anion Gap 10.9 (5-19); Aspartate Amino Transferase 17 U/L (0-40); Blood Urea Nitrogen 16 mg/dL (8-23); Calcium 8.6 mg/dL (8.5-10.5); Carbon Dioxide 25 mmol/L (22-29); Chloride 106 mmol/L (98-107); Creatinine Clr Calc Pharmacy 105.9654; Globulin 2.5 g/dL (1.3-4.6); Glomerular Filtration Rate 112.8 mL/min (90-130); Glucose 132 mg/dL (65-115); Osmolality Calculated 289 mOsm/kg (285-295); Potassium 3.9 mmol/L (3.5-5.1); Sodium 138 mmol/L (136-145); Total Bilirubin 0.4 mg/dL (0.15-1.2); Total Protein 6.5 g/dL (6.6-8.7)
--- NOTE | 2023-12-16 13:36 | ECG_ITS ---
[facility] Test Date: 2023-12-16 Pat Name: John Aggarwal Department: Room: Gender: Male Vice President Financial: : 1955 Requested By: Benson Martinez Order Number: [id number] Ivis MD: ANH QIU Measurements Intervals [place] Rate: 79 P: -52 AL: 169 QRS: -44 QRSD: 88 T: 15 QT: 373 QTc: 429 Interpretive Statements SINUS RHYTHM WITH OCCASIONAL SUPRAVENTRICULAR PREMATURE COMPLEXES MARKED LEFT AXIS DEVIATION [QRS AXIS < -30] POSSIBLE RIGHT VENTRICULAR CONDUCTION DELAY [RSR (QR) IN V1/V2] Compared to ECG 10/08/2023 08:26:59 No significant changes Electronically Signed On 12-17-2023 21:19:08 CDT by ANH QIU [email or web address]
[2023-12-16 13:40] LABS: Ferritin 28 ng/mL (30-400); Iron 64 ug/dL (59-158); Percent Saturation 25.3 % (20-50); Total Iron Binding Capacity 252 mcg/dl; Unsaturated Iron Binding 188 ug/dL (112-347)
== END 2023-12-26 23:59 | disposition home or self-care (01) ==
PROVIDERS: Nurse Practitioner Family; PCP Nurse Practitioner; Visit Provider Internal Medicine Medical Oncology
DX: C34.32 Malignant neoplasm of lower lobe, left bronchus or lung (principal); C15.9 Malignant neoplasm of esophagus, unspecified; I49.9 Cardiac arrhythmia, unspecified; Z53.9 Procedure and treatment not carried out, unspecified reason
CPT/HCPCS: 36591; 71260; 80053; 82565; 82728; 83540; 83550; 84520; 85025; 93005; 99214

== ENCOUNTER → 2023-12-17 15:06 | Outpatient (BNVA) | payer OTHER, SELFPAY | PROVIDERS: PCP Nurse Practitioner; Visit Provider Physician Assistant | DX: Z48.89 Encounter for other specified surgical aftercare; Z96.642 Presence of left artificial hip joint | CPT/HCPCS: 73502; 99024 ==

== ENCOUNTER 2024-01-07 12:12 | Oncology outpatient (recurring) (ONCR) | payer OTHER, SELFPAY | END 2024-01-25 23:59 | disposition home or self-care (01) | LOC: ONCMED 12:12 | PROVIDERS: PCP Nurse Practitioner; Visit Provider Internal Medicine Medical Oncology | DX: Z45.2 Encounter for adjustment and management of vascular access device | CPT/HCPCS: 96523 ==

== ENCOUNTER 2024-01-27 09:46 | Oncology outpatient (recurring) (ONCR) | payer OTHER, SELFPAY | END 2024-02-25 23:59 | disposition home or self-care (01) | LOC: ONCMED 09:47 | PROVIDERS: PCP Nurse Practitioner; Visit Provider Internal Medicine Medical Oncology | DX: I73.9 Peripheral vascular disease, unspecified; Z98.890 Other specified postprocedural states; C34.32 Malignant neoplasm of lower lobe, left bronchus or lung | CPT/HCPCS: 96523; 99213 ==

== ENCOUNTER 2024-03-27 11:04 | Oncology outpatient (recurring) (ONCR) | payer OTHER, SELFPAY ==
[2024-03-09 11:33] LABS: Basophils % 0.3 %; Eosinophils # 0.1 10^3/uL (0.0-0.8); Eosinophils % 0.8 %; Hematocrit 42.2 % (37-53); Lymphocytes # 2.1 10^3/uL (0.8-4.8); Lymphocytes % 23.2 %; Mean Corpuscular Volume 87.6 fl (82-101); Mean Platelet Volume 9.8 fL (7.4-10.4); Monocytes # 0.9 10^3/uL (0.2-0.9); Monocytes % 9.4 %; Neutrophils # 5.95 10^3/uL (1.8-7.7); Nucleated Red Blood Cells % 0 %; Platelet Count 282 10^3/cmm (157-399); Red Blood Count 4.82 10^6/uL (3.85-5.65); Red Cell Distribution Width 15.3 % (12.1-15.1); White Blood Count 9.02 10^3/uL (3.29-11.43)
[2024-03-09 11:53] LABS: Alanine Aminotransferase 16 U/L (0-41); Albumin Level 4.4 g/dL (3.5-5.2); Alkaline Phosphatase 87 U/L (40-130); Anion Gap 15.1 (5-19); Aspartate Amino Transferase 22 U/L (0-40); Blood Urea Nitrogen 13 mg/dL (8-23); Calcium 9.6 mg/dL (8.5-10.5); Carbon Dioxide 25 mmol/L (22-29); Chloride 103 mmol/L (98-107); Creatinine Clr Calc Pharmacy 105.4408; Globulin 2.8 g/dL (1.3-4.6); Glomerular Filtration Rate 96.7 mL/min (90-130); Glucose 123 mg/dL (65-115); Osmolality Calculated 289 mOsm/kg (285-295); Potassium 4.1 mmol/L (3.5-5.1); Sodium 139 mmol/L (136-145); Total Bilirubin 0.6 mg/dL (0.15-1.2); Total Protein 7.2 g/dL (6.6-8.7)
[2024-03-09 12:42] LABS: Ferritin 44 ng/mL (30-400)
--- NOTE | 2024-03-17 10:30 | CT_ITS ---
WS: [id number] CT chest w con* [id number] HISTORY: surveillance, esophageal and lung cancer. TECHNIQUE: Axial imaging performed through the thorax. Coronal and sagittal reformats are submitted. All CT scans at [facility] use at least one of these dose optimization techniques: automated exposure control; mA and/or kV adjustment per patient size (includes targeted exams where dose is mat ched to clinical indication); or iterative reconstruction. CONTRAST: Omnipaque 350; 100 mL IV. DLP: 425.45 mGy.cm COMPARISON: 12/10/2023, 09/09/2023, 06/20/2023 Lungs and central airway: Linear nodule measuring 7 x 18 mm in the medial LEFT upper lobe continues t o increase in consolidation over several prior examinations from 06/20/2023. Pleural thickening along the LEFT fissure and linear area of scarring and fibrosis and opacification in the LEFT lower lobe co ntinues to slowly improve. Posttreatment changes are suspected. No new mass or nodule. Pleura: No pleural effusion. Heart and pericardium: Normal size heart with no pericardial effusion. Mediastinum and rahul: No mediastinum or hilar adenopathy. Esophagectomy with gastric pull-through. No recurrent mass. Vessels: Atherosclerosis aorta. RIGHT Mediport with tip terminating in the distal SVC. Chest wall and lower neck: No soft tissue masses. Upper abdomen: No adrenal mass. Visualized liver is negative. Mild atrophy of the visualized pancreas . Osseous structures: Advanced degenerative disc disease and spondylosis in the thoracic spine. No dest ructive bone process. CT/CT chest w con* [id number] IMPRESSION: 1. Stable and improving posttreatment changes in the LEFT lower lobe with ayo cent pleural thickening. No recurrent mass or nodule LEFT lower lobe. 2. Increasing linear nodule in the medial LEFT upper lobe measures 7 x 18 mm. Nodule has slowly increased in size over multiple prior studies. On the PET/CT of 12/25/2022 there was minimal opacification at the site of the nodule. Consid er follow-up PET/CT imaging to ensure this is not an additional neoplastic nodu le. 3. Status post esophagectomy with gastric pull-through. 4. No mediastinal or hilar adenopathy.
--- NOTE | 2024-03-27 12:00 | PETR_ITS ---
PROCEDURE INFORMATION: Exam: PET/CT Skull Base to Mid-thigh Exam date and time: 03/27/2024 12:56 PM Age: 68 years old Clinical indication: Symptoms: Enlarging lymph node; Prior surgery; Surgery date: 6+ months; Surgery type: Esophagus, port; HX of left lung cancer 2 years ago. HX of esophageal cancer 6years ago; Additional info: Enlarging lymph node, recommended on 03/17/24 CT LABS AND CLINICAL REPORTS: Glucose: 122 mg/dl Treatment strategy for malignancy (PET staging): Restaging (PS) TECHNIQUE: Imaging protocol: Following at least four-hour fasting and following the injection of radiopharmaceutical, low dose CT images were obtained. Then, PET images were obtained. Attenuation corrected images were constructed using the CT scan. Fused images of PET and CT were reviewed. The standardized uptake values (SUV) reported below are maximum values within a region of interest, expressed in gm/ml. Exam includes orbital meatal line to mid-thigh. SUV normalization method: BodyWeight Radiopharmaceutical: 10.94 mCi F-18 FDG (Fluorodeoxyglucose), IV. Time of imaging post radiopharmaceutical administration: 48 minutes Injection site: right ac COMPARISON: CT chest 03/17/2024 and 12/10/2023, PET-CT skull to thigh 12/25/2022 FINDINGS: Tubes, catheters and devices: Port catheter placed via the right internal jugular vein terminates in the cavoatrial junction. Brain: Normal physiologic uptake. Pharynx: No abnormal uptake. Larynx: No abnormal uptake. Lungs, pleura and trachea: 1.7 x 0.8 cm elongated opacity medially in the apex of the left upper lobe 8.4 SUV. About 0.6 x 0.3 cm subpleural opacity anteriorly in the apex of the left upper lobe measures 4 SUV. About 1 x 0.5 cm irregular shaped linear subpleural opacity anteriorly in the apex of the right upper lobe measures 4.5 SUV. There is low-grade uptake of 3.2 SUV within post treatment scar in the left lower lobe Heart: No abnormal uptake. There is no cardiomegaly. Severe coronary artery calcification is present. There is no pericardial effusion. Mediastinal space: See below in lymph nodes . Stable changes after esophagectomy with gastric pull-up surgery. Liver: No abnormal uptake. Maximum uptake is 3.8 SUV. Gallbladder and biliary ducts: No abnormal uptake. No calcified gallstones. Pancreas: No abnormal uptake. Spleen: No abnormal uptake. No splenomegaly. Adrenal glands: No abnormal uptake. No nodules. Kidneys and ureters: Normal physiologic uptake. No hydronephrosis. Stomach and bowel: Increased uptake in multiple loops of small bowel with no corresponding CT abnormality is likely benign. Vasculature: No abnormal uptake. No aortic aneurysm. Stents in bilateral external iliac arteries. Lymph nodes: Left upper mediastinal prevascular nodule with a short axis of 1 cm measures 5.8 SUV. Borderline prominent in size left paratracheal lymph node stable since 2022 measures 3.2 SUV suggestive of benign finding. No FDG avid lymphadenopathy in the neck, abdomen, pelvis, and extremities. Skeleton: New increased uptake of 7 SUV within the right hip joint space. No abnormal FDG uptake in the bone. Stable internal fixation in C4-C7. Status post left hip replacement. Soft tissues: No mass. Benign linear uptake in the soft tissues laterally and anteriorly to the left hip prosthesis. PET/PET skull to thigh SUBS [id number] IMPRESSION: FDG avid findings in the bilateral upper chest concerning for malignancy as follows: 1. 1.7 x 0.8 cm elongated lung nodule in the left upper lobe measuring 8.4 SUV. 2. Tiny elongated subpleural or pleural-based findings anteriorly in the apex of the each upper lobe measuring 4.5 SUV on the right side and 4 SUV on the left side. 3. Left upper mediastinal prevascular lymph node with a short axis of 1 cm measuring 5.8 SUV.
== END 2024-03-27 23:59 | disposition home or self-care (01) ==
LOC: RAD 11:04 → ONCMED 03-30 09:01
PROVIDERS: PCP Nurse Practitioner; Visit Provider Nurse Practitioner Family
DX: C34.32 Malignant neoplasm of lower lobe, left bronchus or lung (principal)
CPT/HCPCS: 36591; 71260; 78815; 80053; 82728; 85025; 99214; A9552

== ENCOUNTER → 2024-03-31 08:27 | Outpatient (BNVA) | payer OTHER, SELFPAY | PROVIDERS: PCP Nurse Practitioner; Referring Provider Nurse Practitioner Family; Visit Provider Surgery | DX: C15.9 Malignant neoplasm of esophagus, unspecified (principal); C34.32 Malignant neoplasm of lower lobe, left bronchus or lung | CPT/HCPCS: 99213 ==

== ENCOUNTER 2024-04-13 13:19 | Oncology outpatient (recurring) (ONCR) | payer OTHER, SELFPAY | END 2024-04-24 23:59 | disposition home or self-care (01) | PROVIDERS: PCP Nurse Practitioner; Visit Provider Nurse Practitioner Family | DX: C34.32 Malignant neoplasm of lower lobe, left bronchus or lung (principal); Z85.118 Personal history of other malignant neoplasm of bronchus and lung; Z85.01 Personal history of malignant neoplasm of esophagus; Z08 Encounter for follow-up examination after completed treatment for malignant neoplasm; Z87.891 Personal history of nicotine dependence; Z92.21 Personal history of antineoplastic chemotherapy; Z92.3 Personal history of irradiation; E83.119 Hemochromatosis, unspecified; Z53.9 Procedure and treatment not carried out, unspecified reason | CPT/HCPCS: 99214 ==

== ENCOUNTER 2024-05-06 08:44 | Oncology outpatient (recurring) (ONCR) | payer OTHER, SELFPAY ==
--- NOTE | 2024-05-06 08:45 | CTR_ITS ---
PROCEDURE INFORMATION: Exam: CT Chest With Contrast; Diagnostic Exam date and time: 05/06/2024 8:47 AM Age: 68 years old Clinical indication: Condition or disease; Other: Esophageal cancer; Prior surgery; Surgery date: 6+ months; Surgery type: Port; Additional info: Surveillance TECHNIQUE: Imaging protocol: Diagnostic computed tomography of the chest with contrast. Radiation optimization: All CT scans at this facility use at least one of these dose optimization techniques: automated exposure control; mA and/or kV adjustment per patient size (includes targeted exams where dose is matched to clinical indication); or iterative reconstruction. Contrast material: OMNI 350; Contrast volume: 100 ml; Contrast route: INTRAVENOUS (IV); COMPARISON: PT PET skull to thigh SUBS [id number] 03/27/2024 12:56 PM RADIATION DOSE METRICS: Total DLP (mGy-cm): 460.88 FINDINGS: Tubes, catheters and devices: Unchanged right chest port projects in satisfactory position. Lungs: Unchanged nodules in the lung apices. Unchanged scarring and chronic atelectasis in both lower lungs. No other significant pulmonary abnormalities. Pleural spaces: Unremarkable. No pneumothorax. No pleural effusion. Heart: Unremarkable. No cardiomegaly. No pericardial effusion. Esophagus: Unchanged esophagectomy and gastric pull-through Lymph nodes: Unchanged mild mediastinal lymphadenopathy. Vasculature: Unchanged moderate amount of arterial plaque. Otherwise, unremarkable systemic and pulmonary vasculature. Bones/joints: Unchanged mild thoracic scoliosis and kyphosis. Unchanged mild and moderate multilevel spondylosis. Unchanged surgical hardware cervical spine. Otherwise, unremarkable. Soft tissues: Otherwise, unremarkable visualized body wall. Otherwise, unremarkable soft tissues. Other findings: Otherwise, unremarkable visualized upper abdominal structures. CT/CT chest w con* [id number] IMPRESSION: 1. Unchanged mild mediastinal lymphadenopathy. No other lymphadenopathy. 2. Unchanged nodules in the lung apices. 3. Unchanged scarring and chronic atelectasis in both lower lungs. 4. Additional details as above. Unchanged.
[2024-05-06] MEDS: iohexol 350 mg/mL 500 mL Btl (per mL) IV (09:05)
== END 2024-05-25 23:59 | disposition home or self-care (01) ==
LOC: RAD 08:46 → ONCMED 09:57
PROVIDERS: PCP Nurse Practitioner; Visit Provider Nurse Practitioner Family
DX: C34.32 Malignant neoplasm of lower lobe, left bronchus or lung (principal); Z85.118 Personal history of other malignant neoplasm of bronchus and lung; Z85.01 Personal history of malignant neoplasm of esophagus; Z08 Encounter for follow-up examination after completed treatment for malignant neoplasm; Z87.891 Personal history of nicotine dependence; Z92.21 Personal history of antineoplastic chemotherapy; Z92.3 Personal history of irradiation; E83.119 Hemochromatosis, unspecified; Z53.9 Procedure and treatment not carried out, unspecified reason; R91.1 Solitary pulmonary nodule; R59.1 Generalized enlarged lymph nodes
CPT/HCPCS: 71260

== ENCOUNTER → 2024-05-13 08:50 | Outpatient (BNVA) | payer OTHER, SELFPAY | PROVIDERS: PCP Nurse Practitioner; Visit Provider Student in an Organized Health Care Education/Training Program | DX: Z96.642 Presence of left artificial hip joint (principal) | CPT/HCPCS: 73502; 99213 ==

== ENCOUNTER 2024-06-08 12:11 | Oncology outpatient (recurring) (ONCR) | payer OTHER, SELFPAY ==
[2024-06-08 12:38] LABS: Basophils # 0.1 10^3/uL (0.0-0.1); Basophils % 0.9 %; Eosinophils # 0.2 10^3/uL (0.0-0.8); Eosinophils % 2.7 %; Hematocrit 40.6 % (37-53); Lymphocytes # 1.9 10^3/uL (0.8-4.8); Lymphocytes % 29.4 %; Mean Corpuscular HGB Conc 32.5 g/dL (30-55); Mean Corpuscular Hemoglobin 28.9 pg (27-33); Mean Platelet Volume 10.1 fL (7.4-10.4); Monocytes # 0.6 10^3/uL (0.2-0.9); Monocytes % 9.9 %; Neutrophils # 3.62 10^3/uL (1.8-7.7); Neutrophils % 56.9 %; Nucleated Red Blood Cells % 0 %; Platelet Count 209 10^3/cmm (157-399); Red Blood Count 4.56 10^6/uL (3.85-5.65); Red Cell Distribution Width 15.6 % (12.1-15.1); White Blood Count 6.36 10^3/uL (3.29-11.43)
[2024-06-08 13:02] LABS: Carcinoembryonic Antigen 22.8 ng/mL (0.0-4.7)
[2024-06-08 13:15] LABS: Alanine Aminotransferase 14 U/L (0-41); Albumin Level 4.3 g/dL (3.5-5.2); Alkaline Phosphatase 71 U/L (40-130); Anion Gap 14.8 (5-19); Aspartate Amino Transferase 17 U/L (0-40); Blood Urea Nitrogen 8 mg/dL (8-23); Calcium 9.5 mg/dL (8.5-10.5); Carbon Dioxide 24 mmol/L (22-29); Chloride 107 mmol/L (98-107); Creatinine Clr Calc Pharmacy 105.6448; Globulin 2.7 g/dL (1.3-4.6); Glomerular Filtration Rate 112.8 mL/min (90-130); Glucose 119 mg/dL (65-115); Osmolality Calculated 293 mOsm/kg (285-295); Potassium 3.8 mmol/L (3.5-5.1); Sodium 142 mmol/L (136-145); Total Bilirubin 0.4 mg/dL (0.15-1.2)
[2024-06-08 13:44] LABS: Ferritin 19 ng/mL (30-400)
== END 2024-06-24 23:59 | disposition home or self-care (01) ==
PROVIDERS: PCP Nurse Practitioner; Visit Provider Nurse Practitioner Family
DX: Z08 Encounter for follow-up examination after completed treatment for malignant neoplasm (principal); Z85.01 Personal history of malignant neoplasm of esophagus; Z85.118 Personal history of other malignant neoplasm of bronchus and lung; R41.3 Other amnesia; E83.119 Hemochromatosis, unspecified; R91.8 Other nonspecific abnormal finding of lung field; Z87.891 Personal history of nicotine dependence; Z95.828 Presence of other vascular implants and grafts; Z92.3 Personal history of irradiation; Z92.21 Personal history of antineoplastic chemotherapy; Z90.49 Acquired absence of other specified parts of digestive tract
CPT/HCPCS: 36415; 36591; 80053; 82378; 82728; 85025; 99213

== ENCOUNTER 2024-07-10 15:00 | Oncology outpatient (recurring) (ONCR) | payer OTHER, SELFPAY ==
--- NOTE | 2024-07-10 15:00 | PETR_ITS ---
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 Then, PET images were obtained. Attenuation corrected images were constructed using the CT scan. Fused images of PET and CT were reviewed. The standardized uptake values (SUV) reported below are maximum values within a region of interest, expressed in gm/ml. Exam includes orbital meatal line to mid-thigh. SUV normalization method: BodyWeight Radiopharmaceutical: 11.5 mCi F-18 FDG (Fluorodeoxyglucose), IV. Time of imaging post radiopharmaceutical administration: 52 minutes Injection site: LEFT AC COMPARISON: PT PET skull to thigh SUBS [id number] 03/27/2024 12:56 PM FINDINGS: Brain: Visualized brain has normal physiologic uptake. Pharynx: No abnormal uptake. Larynx: No abnormal uptake. Lungs, pleura and trachea: Similar size and appearance of FDG avid left apical nodule measuring 1.9 cm (series 202, image 74) with SUV max of 9.2. Redemonstrated mildly avid subpleural opacities in the anterior bilateral lung apices with SUV max of 3.2 on the left and 2.5 on the right. Scarring in the bilateral lower lobes. Heart: Normal physiologic uptake. Mediastinal space: No abnormal uptake. Liver: No abnormal uptake. Gallbladder and biliary ducts: No abnormal uptake. Pancreas: No abnormal uptake. Spleen: No abnormal uptake. Adrenal glands: No abnormal uptake. Kidneys and ureters: Normal physiologic uptake. Stomach and bowel: No abnormal uptake. Status post esophagectomy with gastric pull-through. Vasculature: No abnormal uptake. Lymph nodes: Prevascular lymph node is decreased in size measuring 7 mm in short axis with SUV max of 3.3. Skeleton: No abnormal uptake in the visualized axial and appendicular skeleton. Left hip arthroplasty. Soft tissues: No abnormal uptake in the visualized head, neck, chest, abdomen, pelvis, and extremities. METRICS: Mediastinal blood pool: SUV max = 2.1 Liver uptake: SUV max = 2.5 PET/PET skull to thigh SUBS [id number] IMPRESSION: 1. Similar size and avidity of 1.9 cm left apical nodule. 2. Slightly decreased size of prevascular lymph node with similar avidity. 3. Redemonstrated mildly avid subpleural opacities in the anterior bilateral lung apices.
== END 2024-07-25 23:59 | disposition home or self-care (01) ==
PROVIDERS: PCP Nurse Practitioner; Visit Provider Internal Medicine Medical Oncology
DX: Z53.9 Procedure and treatment not carried out, unspecified reason (principal); C34.32 Malignant neoplasm of lower lobe, left bronchus or lung; Z95.828 Presence of other vascular implants and grafts
CPT/HCPCS: 78815; 99214; A9552

== ENCOUNTER 2024-08-13 10:11 | Oncology outpatient (recurring) (ONCR) | payer OTHER, SELFPAY ==
--- NOTE | 2024-08-04 09:30 | ONCRAD EPV_ITS ---
Radiation Oncology Established Patient Visit Patient: Alessia Lopez [id number] : 1955> Age: 68> Sex: Male> Dictated by: Dr. Jose Meng Date of Service: 08/03/2024 Referring Physician(s) : Benson Clay M.D. 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 [address] I (T1, N0, M0) adenocarcinoma of DIPAK seen on PET/CT 07/10/2024 s/p EBUS and bx 06/18/2024. Following bx he did well. NGS is showed very limited actionable mutations as noted to me by Dr. Cabrera. He had mental status changes on chemo and is not interested in additional systemic treatment. He is active at home. No longer smoking. Weight and appetite stable. Some productive cough with clear sputum. No chest pain fevers. Radiotherapy to Date: Course: Left lung 2023Treatment Site: [facility] 2023, Ref. ID: [id number], Energy: 6X, Dose/Fx (cGy): 200, #Fx: 20 / 20, Dose Correction (cGy): 0, Total Dose Delivered (cGy): 4,000, Start Date: 03/14/2023, End Date: 04/11/2023, Elapsed Days: 28 Current History: Current Medications: - Last Reconciled 08/03/24 by Marcia Zamudio MA acetaminophen (Tylenol) 650 mg PO QID PRN albuterol sulfate 90 mcg/actuation (Ventolin HFA) 1 inh inhalation QID PRN amlodipine 5 mg PO DAILY aspirin 81 mg PO DAILY atorvastatin 10 mg PO DAILY cilostazol 100 mg PO BID loratadine (Allergy Relief (loratadine)) 10 mg PO DAILY omeprazole 40 mg PO BID vitamin B complex 1 cap PO DAILY Vital Signs: Performed on 08/03/2024 11:11 AM BMI - 24.54 kg/m2 (high), Height - 73 in, Weight - 186 lbs, Temperature - 98.7 f, Pulse - 71 /min, Respiration - 17 /min, O2 Sat - 96 %, Pain - 0, Fatigue - 0 and BP - 126/ 76 mm(hg). Physical Exam: General: Alert and oriented x 3. No acute distress. Poor dentition. No adenopathy. Lungs clear. No clubbing or edema. No focal neurologic findings. Performance Status: ECOG PS 0 - 1 Lab: None pending. Pathology: Adenocarcinoma of DIPAK, I favor that this represents a new primary Imaging: See HPI Impression: St I adenocarcinoma of the DIPAK. Good candidate for definitive SBRT alone. Discussed with patient, and Dr. Cabrera. Plan on 50 Gy in 5 fractions. Previous treatment plans reviewed and there is no significant risk of any overlap with previous treatment volumes. Signed by: 08/04/2024 9:28:36 AM <<Signature on File>> Time spent with patient: CPT Code: CPT Code:
--- NOTE | 2024-08-13 12:44 | N.ONRD TS_ITS ---
Radiation Oncology Treatment Summary Patient: John Aggarwal MR#: [id number] : 1955 Age: 68 Sex: Male Dictated by: Dr. Meng Date of Service: 08/13/2024 Referring Physician(s) : Benson Clay M.D. Diagnosis: C34.12 - Malignant neoplasm of upper lobe, left bronchus or lung, Diagnosed 08/04/2024 (Active) C34.32 - Malignant neoplasm of lower lobe, left bronchus or lung, Diagnosed 01/28/2023 (Active) Radiotherapy to Date: Course: Left lung 2023, Treatment Site: LT Lung 2023, Ref. ID: [id number], Energy: 6X, Dose/Fx (cGy): 200, #Fx: 20 / 20, Dose Correction (cGy): 0, Total Dose Delivered (cGy): 4,000, Start Date: 03/14/2023, End Date: 04/11/2023, Elapsed Days: 28 Course: Lt Lung 2024, Treatment Site: [id number], Ref. ID: [id number], Energy: 6X, Dose/Fx (cGy): 1,200, #Fx: 4 / 4, Dose Correction (cGy): 0, Total Dose Delivered (cGy): 4,800, Start Date: 08/10/2024, End Date: 08/13/2024, Elapsed Days: 3 Vital Signs: Performed on 08/13/2024 10:59 AM BMI - 24.144 kg/m2 (high), Height - 73 in, Weight - 183 lbs, Temperature - 97.7 f, Pulse - 86 /min, Respiration - 17 /min, O2 Sat - 96 %, Pain - 0, Fatigue - 0 and BP - 162/ 74 mm(hg)(high/). Clinical Summary: The patient tolerated RT well. No toxicity occurred. Plan: End of treatment today. Follow up in one month. CT chest here or at [place] or here in 3 months. Signed by: Dr. Jose Meng>08/13/2024 12:42:31 PM <<Signature on File>>
== END 2024-08-13 16:36 | disposition home or self-care (01) ==
PROVIDERS: PCP Nurse Practitioner; Visit Provider Radiology Radiation Oncology
DX: Z51.0 Encounter for antineoplastic radiation therapy (principal); C34.12 Malignant neoplasm of upper lobe, left bronchus or lung
CPT/HCPCS: 77300; 77301; 77334; 77336; 77338; 77373; 77470; 99024; 99214; 99215

== ENCOUNTER 2024-09-14 13:00 | Oncology outpatient (recurring) (ONCR) | payer OTHER, SELFPAY ==
--- NOTE | 2024-09-10 14:30 | ONCRAD EPV_ITS ---
Radiation Oncology Established Patient Visit Patient: John Aggarwal [id number] : 1955 Age: 68 Sex: Male Dictated by: Dr. Jose Meng Date of Service: 09/10/2024 Referring Physician(s) : Benson Clay M.D. Diagnosis: C34.12 - Malignant neoplasm of upper lobe, left bronchus or lung, Diagnosed 08/04/2024 (Active) C34.32 - Malignant neoplasm of lower lobe, left bronchus or lung, Diagnosed 01/28/2023 (Active) Radiotherapy to Date: Course: Left lung 2023, Treatment Site: LT Lung 2023, Ref. ID: [id number], Energy: 6X, Dose/Fx (cGy): 200, #Fx: 20 / 20, Dose Correction (cGy): 0, Total Dose Delivered (cGy): 4,000, Start Date: 03/14/2023, End Date: 04/11/2023, Elapsed Days: 28 Course: Lt Lung 2024, Treatment Site: [id number], Ref. ID: [id number], Energy: 6X, Dose/Fx (cGy): 1,200, #Fx: 4 / 4, Dose Correction (cGy): 0, Total Dose Delivered (cGy): 4,800, Start Date: 08/10/2024, End Date: 08/13/2024, Elapsed Days: 3 Current History: Doing well with no complaints. Breathing well, eating well, active. No cough or chest apin. He has some follow-up at [place] but has no details about this as yet. Current Medications: Allergies: Current Complaints / Review of Systems: . Vital Signs: Performed on 09/10/2024 1:01 PM BMI - 24.197 kg/m2 (high), Height - 73 in, Weight - 183.4 lbs, Temperature - 97.0 f, Pulse - 80 /min, Respiration - 17 /min, O2 Sat - 97 %, Pain - 0, Fatigue - 0 and BP - 147/ 91 mm(hg)(high). Physical Exam: General: Alert and oriented x 3. No acute distress. No adenopathy. Lungs clear. No pedal edema. Performance Status: ECOG PS 0 Lab: None pending. Pathology: Primary, c34.12 - malignant neoplasm of upper lobe, left bronchus or lung, Diagnosed 08/04/2024 (active) and Primary, c34.32 - malignant neoplasm of lower lobe, left bronchus or lung, Diagnosed 01/28/2023 (active) . 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 Doing well symptomatically. Will plan to see him in [place] in [address] chest[facility] and patient want to note that PET/CT 07/12/2024 revealed sub pleural nodules with SUV 2.5 to 3.[address] measuring 7 mm SUV 3.3. These findings were likely all benign and were not treated. 1.9 cm apical DIPAK nodule with SUV 9.2 was radiographically malignant and this was treated with stereotactic radiation. Signed by: 09/10/2024 2:28:36 PM <<Signature on File>> Time spent with patient: CPT Code: CPT Code:
[2024-09-14 12:41] LABS: Hematocrit 39.8 % (37-53); Hemoglobin 12.70 g/dL (11.27-16.99); Mean Corpuscular HGB Conc 31.9 g/dL (30-55); Mean Corpuscular Hemoglobin 28.2 pg (27-33); Mean Corpuscular Volume 88.4 fl (82-101); Nucleated Red Blood Cells % 0 %; Platelet Count 222 10^3/cmm (157-399); Red Blood Count 4.50 10^6/uL (3.85-5.65); White Blood Count 7.06 10^3/uL (3.29-11.43)
[2024-09-14 13:16] LABS: Carcinoembryonic Antigen 33.1 ng/mL (0.0-4.7)
[2024-09-14 13:27] LABS: Alanine Aminotransferase 17 U/L (0-41); Albumin Level 4.3 g/dL (3.5-5.2); Alkaline Phosphatase 73 U/L (40-130); Anion Gap 16.8 (5-19); Aspartate Amino Transferase 28 U/L (0-40); Blood Urea Nitrogen 17 mg/dL (8-23); Calcium 9.7 mg/dL (8.5-10.5); Carbon Dioxide 24 mmol/L (22-29); Chloride 104 mmol/L (98-107); Creatinine Clr Calc Pharmacy 104.4793; Globulin 2.8 g/dL (1.3-4.6); Glucose 68 mg/dL (65-115); Osmolality Calculated 292 mOsm/kg (285-295); Potassium 3.8 mmol/L (3.5-5.1); Sodium 141 mmol/L (136-145); Total Protein 7.1 g/dL (6.6-8.7)
== END 2024-09-24 23:59 | disposition home or self-care (01) ==
PROVIDERS: Internal Medicine Medical Oncology; PCP Nurse Practitioner; Visit Provider Radiology Radiation Oncology
DX: C34.32 Malignant neoplasm of lower lobe, left bronchus or lung; C15.9 Malignant neoplasm of esophagus, unspecified; R03.0 Elevated blood-pressure reading, without diagnosis of hypertension; J06.9 Acute upper respiratory infection, unspecified; Z95.828 Presence of other vascular implants and grafts; Z87.891 Personal history of nicotine dependence; Z92.3 Personal history of irradiation; Z92.21 Personal history of antineoplastic chemotherapy; Z53.9 Procedure and treatment not carried out, unspecified reason
CPT/HCPCS: 36591; 80053; 82378; 85025; 99024; 99214

== ENCOUNTER 2024-11-02 13:00 | Oncology outpatient (recurring) (ONCR) | payer OTHER, SELFPAY ==
--- NOTE | 2024-10-27 13:00 | CTR_ITS ---
PROCEDURE INFORMATION: Exam: CT Chest With Contrast; Diagnostic Exam date and time: 10/27/2024 2:09 PM Age: 68 years old Clinical indication: Condition or disease; Other: Esophageal cancer; Prior surgery; Surgery date: 6+ months; Surgery type: Esophagus, port, neck, left hip; Additional info: Small cell carcinoma TECHNIQUE: Imaging protocol: Diagnostic computed tomography of the chest with contrast. Radiation optimization: All CT scans at this facility use at least one of these dose optimization techniques: automated exposure control; mA and/or kV adjustment per patient size (includes targeted exams where dose is matched to clinical indication); or iterative reconstruction. Contrast material: OMNI 350; Contrast volume: 100 ml; Contrast route: INTRAVENOUS (IV); COMPARISON: PT PET skull to thigh SUBS [id number] 07/10/2024 3:22 PM RADIATION DOSE METRICS: Total DLP (mGy-cm): 936.68 FINDINGS: Tubes, catheters and devices: A right infusion port is present. Lungs: Redemonstration of medial left upper lobe 11 mm nodule. This nodule appeared to be slightly larger on PET-CT from 07/10/2024, 13-14 mm. Redemonstration of ill-defined opacity anterior right upper lobe corresponding to increased activity on PET-CT. Increased activity is subpleural anterior left upper nodule also corresponding to the region of increased PET activity. Redemonstration of left lower lobe scarring not significantly changed from comparison. Pleural spaces: Unremarkable. No pneumothorax. No pleural effusion. Heart: Unremarkable. No cardiomegaly. No pericardial effusion. Esophagus: Redemonstration of prior esophagectomy and gastric pull-through. Lymph nodes: Unremarkable. No enlarged lymph nodes. Vasculature: Unremarkable. No aortic aneurysm. Bones/joints: Unremarkable. No acute fracture. Soft tissues: Unremarkable. Other findings: No new parenchymal opacities. PROCEDURE INFORMATION: Exam: CT Abdomen And Pelvis With Contrast Exam date and time: 10/27/2024 2:09 PM Age: 68 years old Clinical indication: Condition or disease; Other: Esophageal cancer; Prior surgery; Surgery date: 6+ months; Surgery type: Esophagus, port, neck, left hip; Additional info: Small cell carcinoma TECHNIQUE: Imaging protocol: Computed tomography of the abdomen and pelvis with contrast. Radiation optimization: All CT scans at this facility use at least one of these dose optimization techniques: automated exposure control; mA and/or kV adjustment per patient size (includes targeted exams where dose is matched to clinical indication); or iterative reconstruction. Contrast material: OMNI 350; Contrast volume: 100 ml; Contrast route: INTRAVENOUS (IV); COMPARISON: PT PET skull to thigh SUBS [id number] 07/10/2024 3:22 PM RADIATION DOSE METRICS: Total DLP (mGy-cm): 936.68 FINDINGS: Liver: There are 1 or more punctate liver calcifications consistent with old granulomatous disease. Gallbladder and biliary ducts: Normal. No calcified stones. No ductal dilation. Pancreas: Normal. No ductal dilation. Spleen: Normal. No splenomegaly. Adrenal glands: Normal. No mass. Kidneys and ureters: There are multiple simple renal cysts bilaterally of varying size. Stomach and bowel: Unremarkable. No obstruction. No mucosal thickening. Appendix: No evidence of appendicitis. Intraperitoneal space: Unremarkable. No free air. No significant fluid collection. Vasculature: Unremarkable. No abdominal aortic aneurysm. Lymph nodes: Unremarkable. No enlarged lymph nodes. Urinary bladder: Unremarkable as visualized. Reproductive: Unremarkable as visualized. Bones/joints: Status post left hip arthroplasty. Soft tissues: Unremarkable. CT/CT chest abdpel w/*[id number] IMPRESSION: 1. No acute findings. 2. Redemonstration of upper lung lesions bilaterally correlating to areas of the increased uptake on PET-CT. 3. Other findings as above. IMPRESSION: No acute findings. COMMENTS: Consistent with the [employer]'s Incidental Findings Committee white paper (J Am Bianka Radiol 2018): Any incidental renal lesion less than 1 cm or classified as too small to characterize, or any incidental cystic renal lesion characterized as simple-appearing, is likely benign. No follow-up imaging is recommended for these lesions per consensus recommendations based on imaging criteria.
[2024-10-27] MEDS: iohexol 350 mg/mL 500 mL Btl (per mL) IV (14:23)
[2024-10-27] MEDS: iohexol 350 mg/mL 500 mL Btl (per mL) PO (14:23)
[2024-11-02 13:22] LABS: Hematocrit 39.2 % (37-53); Hemoglobin 13.00 g/dL (11.27-16.99); Mean Corpuscular HGB Conc 33.2 g/dL (30-55); Mean Corpuscular Hemoglobin 28.8 pg (27-33); Mean Corpuscular Volume 86.7 fl (82-101); Nucleated Red Blood Cells % 0 %; Platelet Count 225 10^3/cmm (157-399); Red Blood Count 4.52 10^6/uL (3.85-5.65); White Blood Count 6.35 10^3/uL (3.29-11.43)
[2024-11-02 13:40] LABS: Alanine Aminotransferase 14 U/L (0-41); Albumin Level 4.5 g/dL (3.5-5.2); Alkaline Phosphatase 76 U/L (40-130); Anion Gap 13.9 (5-19); Aspartate Amino Transferase 19 U/L (0-40); Blood Urea Nitrogen 11 mg/dL (8-23); Calcium 9.5 mg/dL (8.5-10.5); Carbon Dioxide 26 mmol/L (22-29); Chloride 107 mmol/L (98-107); Globulin 2.7 g/dL (1.3-4.6); Glucose 107 mg/dL (65-115); Osmolality Calculated 296 mOsm/kg (285-295); Potassium 3.9 mmol/L (3.5-5.1); Sodium 143 mmol/L (136-145); Total Protein 7.2 g/dL (6.6-8.7)
== END 2024-11-24 23:59 | disposition home or self-care (01) ==
PROVIDERS: Internal Medicine Medical Oncology; PCP Nurse Practitioner; Visit Provider Radiology Radiation Oncology
DX: C34.32 Malignant neoplasm of lower lobe, left bronchus or lung; R03.0 Elevated blood-pressure reading, without diagnosis of hypertension; J44.9 Chronic obstructive pulmonary disease, unspecified; Z95.828 Presence of other vascular implants and grafts; Z87.891 Personal history of nicotine dependence; Z92.21 Personal history of antineoplastic chemotherapy; Z92.3 Personal history of irradiation; Z53.9 Procedure and treatment not carried out, unspecified reason
CPT/HCPCS: 36591; 71260; 74177; 80053; 85025; 99214

== ENCOUNTER → 2024-11-09 08:40 | Outpatient (BNVA) | payer OTHER, SELFPAY | PROVIDERS: PCP Nurse Practitioner; Visit Provider Internal Medicine | DX: C34.32 Malignant neoplasm of lower lobe, left bronchus or lung (principal); C15.5 Malignant neoplasm of lower third of esophagus; J43.9 Emphysema, unspecified; Z79.82 Long term (current) use of aspirin; Z98.890 Other specified postprocedural states; Z87.891 Personal history of nicotine dependence; J44.9 Chronic obstructive pulmonary disease, unspecified | CPT/HCPCS: 36415; 85025; 99214 ==

== ENCOUNTER 2024-11-30 08:21 | Oncology outpatient (recurring) (ONCR) | payer OTHER, SELFPAY ==
[2024-11-30 08:58] LABS: Hematocrit 38.0 % (37-53); Hemoglobin 12.20 g/dL (11.27-16.99); Mean Corpuscular HGB Conc 32.1 g/dL (30-55); Mean Corpuscular Hemoglobin 28.2 pg (27-33); Mean Corpuscular Volume 88.0 fl (82-101); Nucleated Red Blood Cells % 0 %; Platelet Count 234 10^3/cmm (157-399); Red Blood Count 4.32 10^6/uL (3.85-5.65); White Blood Count 5.78 10^3/uL (3.29-11.43)
[2024-11-30 09:24] LABS: Carcinoembryonic Antigen 7.5 ng/mL (0.0-4.7)
[2024-11-30 09:35] LABS: Alanine Aminotransferase 14 U/L (0-41); Albumin Level 4.3 g/dL (3.5-5.2); Alkaline Phosphatase 70 U/L (40-130); Anion Gap 13.7 (5-19); Aspartate Amino Transferase 15 U/L (0-40); Blood Urea Nitrogen 14 mg/dL (8-23); Calcium 9.1 mg/dL (8.5-10.5); Carbon Dioxide 25 mmol/L (22-29); Chloride 105 mmol/L (98-107); Globulin 2.4 g/dL (1.3-4.6); Glucose 100 mg/dL (65-115); Osmolality Calculated 291 mOsm/kg (285-295); Potassium 3.7 mmol/L (3.5-5.1); Sodium 140 mmol/L (136-145); Total Protein 6.7 g/dL (6.6-8.7)
== END 2024-12-25 23:59 | disposition home or self-care (01) ==
PROVIDERS: Nurse Practitioner Family; PCP Nurse Practitioner; Visit Provider Radiology Radiation Oncology
DX: C15.9 Malignant neoplasm of esophagus, unspecified (principal); C34.32 Malignant neoplasm of lower lobe, left bronchus or lung
CPT/HCPCS: 36591; 80053; 82378; 83615; 85025

== ENCOUNTER 2025-01-11 10:45 | Oncology outpatient (recurring) (ONCR) | payer OTHER, SELFPAY ==
[2025-01-11] MEDS: iohexol 350 mg/mL 500 mL Btl (per mL) PO (09:50)
[2025-01-11] MEDS: iohexol 350 mg/mL 500 mL Btl (per mL) IV (10:37)
--- NOTE | 2025-01-11 10:45 | CT_ITS ---
WS: [id number] CT CHEST, ABDOMEN AND PELVIS WITH CONTRAST HISTORY: small cell carcinoma of lower lobe of left lung, history of esophageal cancer. TECHNIQUE: Contiguous 5 mm axial imaging performed through the chest, abdomen and pelvis with IV contrast, oral contrast has been provided. Coronal and sagittal reformats chest. Coronal and sagittal reformats through the abdomen and pelvis. All CT scans at [facility] use at least one of these dose optimization techniques: automated exposure control; mA and/or kV adjustment per patient size (includes targeted exams where dose is matched to clinical indication); or iterative reconstruction. CONTRAST: Omnipaque 350; 100 mL IV. DLP: 964.37 mGy.cm COMPARISON: 10/27/2024, 05/06/2024, PET/CT 07/10/[address]: LEFT apical 7 mm nodule similar to 10/27/2024. No change in the bandlike areas of atelectasis with volume loss in the LEFT lower lobe. Suspect posttreatment changes. There is mild bronchiectasis associated with the volume loss. No new mass or pulmonary nodule. No mediastinal or hilar adenopathy. Right-sided Mediport is identified. Moderate atherosclerotic plaque within the thoracic aorta. Small AP window lymph nodes are identified and stable. Heart size is normal. No pericardial or pleural effusions. Status post esophagectomy with gastric pull-through. No recurrent mass or obstruction. Abdomen CT: Normal size liver. Slightly contracted gallbladder. Normal portal vein. Normal spleen. Mild diffuse pancreatic atrophy. No pancreatic duct or common bile duct dilatation. No adrenal gland mass. No renal obstruction. Moderate atherosclerosis aorta. No GI tract obstruction. No colitis. No ascites or adenopathy. Small umbilical hernia containing fat only. Pelvic CT: No free fluid in the pelvis. Negative urinary bladder. No adenopathy. Dense atherosclerotic plaque in the iliac arteries. No lytic or destructive bone lesions. LEFT hip arthroplasty. CT/CT chest abdpel w/*[id number] IMPRESSION: 1. 7 mm slightly spiculated LEFT apical nodule is stable. 2. Bandlike areas of atelectasis LEFT lower lobe are stable. Suspect posttreat ment changes of pneumonitis. 3. No mediastinal or hilar adenopathy. 4. Prior esophagectomy with gastric pull-through. 5. No metastatic disease to the liver or adrenal glands. 6. Moderate atherosclerosis thoracic aorta and abdominal aorta. More dense bill que in the iliac arteries
== END 2025-01-24 23:59 | disposition home or self-care (01) ==
LOC: ONCMED 11:38 → RAD 01-12 00:01 → ONCMED 01-12 09:29
PROVIDERS: PCP Nurse Practitioner; Visit Provider Radiology Radiation Oncology
DX: Z45.2 Encounter for adjustment and management of vascular access device; Z95.828 Presence of other vascular implants and grafts; C34.32 Malignant neoplasm of lower lobe, left bronchus or lung; R91.1 Solitary pulmonary nodule; J98.11 Atelectasis; Z90.49 Acquired absence of other specified parts of digestive tract; I70.0 Atherosclerosis of aorta; I70.8 Atherosclerosis of other arteries; R91.8 Other nonspecific abnormal finding of lung field; J47.9 Bronchiectasis, uncomplicated; Z96.89 Presence of other specified functional implants; R59.0 Localized enlarged lymph nodes; K86.89 Other specified diseases of pancreas; K42.9 Umbilical hernia without obstruction or gangrene; Z96.642 Presence of left artificial hip joint; Z53.9 Procedure and treatment not carried out, unspecified reason
CPT/HCPCS: 71260; 74177; 96523

== ENCOUNTER 2025-01-25 11:16 | Oncology outpatient (recurring) (ONCR) | payer OTHER, SELFPAY ==
[2025-01-25 11:44] LABS: Hematocrit 40.3 % (37-53); Hemoglobin 13.10 g/dL (11.27-16.99); Mean Corpuscular HGB Conc 32.5 g/dL (30-55); Mean Corpuscular Hemoglobin 28.9 pg (27-33); Mean Corpuscular Volume 88.8 fl (82-101); Nucleated Red Blood Cells % 0 %; Platelet Count 196 10^3/cmm (157-399); Red Blood Count 4.54 10^6/uL (3.85-5.65); White Blood Count 6.84 10^3/uL (3.29-11.43)
[2025-01-25 12:04] LABS: Alanine Aminotransferase 17 U/L (0-41); Albumin Level 4.4 g/dL (3.5-5.2); Alkaline Phosphatase 71 U/L (40-130); Anion Gap 11.9 (5-19); Aspartate Amino Transferase 18 U/L (0-40); Blood Urea Nitrogen 12 mg/dL (8-23); Calcium 9.3 mg/dL (8.5-10.5); Carbon Dioxide 27 mmol/L (22-29); Chloride 108 mmol/L (98-107); Globulin 2.4 g/dL (1.3-4.6); Glucose 107 mg/dL (65-115); Osmolality Calculated 296 mOsm/kg (285-295); Potassium 3.9 mmol/L (3.5-5.1); Sodium 143 mmol/L (136-145); Total Protein 6.8 g/dL (6.6-8.7)
== END 2025-02-24 23:59 | disposition home or self-care (01) ==
PROVIDERS: Internal Medicine Medical Oncology; PCP Nurse Practitioner; Visit Provider Nurse Practitioner Family
DX: Z08 Encounter for follow-up examination after completed treatment for malignant neoplasm (principal); Z85.118 Personal history of other malignant neoplasm of bronchus and lung; R03.0 Elevated blood-pressure reading, without diagnosis of hypertension; R49.0 Dysphonia; R12 Heartburn; R06.02 Shortness of breath; Z95.828 Presence of other vascular implants and grafts; Z87.891 Personal history of nicotine dependence; Z92.3 Personal history of irradiation; Z92.21 Personal history of antineoplastic chemotherapy; Z79.899 Other long term (current) drug therapy
CPT/HCPCS: 36591; 80053; 85025; 99214